=== PATIENT | male | born 1945 | race Caucasian/White ===

== ENCOUNTER 2016-11-12 16:55 | Inpatient (IN) | payer MEDICAID, OTHER ==
[2016-11-12 17:03] VITALS: BMI 17.3
[2016-11-12] MEDS ORDERED: Sodium Chloride 0.9% 1,000 ML IV ONE (17:49)
--- NOTE | 2016-11-12 18:16 | C.PDOC ---
History Of Present Illness 71 y/o male with Hx of Bladder CA presents to ED with complaints of bilateral femur pain radiating to whole body. Pain has been ongoing for awhile but has increased 1 month ago. Patient states having an operation in December at [facility] for Cancer and having bladder, prostate and 1 kidney removed. Patient did not undergo chemotherapy for personal reasons. Patient is evaluated by Dr.Elliot Richmond but does not have a PMD. Patient had a PET scan at [facility] with the following results: Few Scattered non-calcified nodules in lungs without evidence of increase FDG uptake. Mildly enlarged lymph node at lower abdominal to the Left side of aortic bifurcation demonstrates increased FDG uptake suggestive of Metastasis Multiple Osseous Metastasis including Left pedicles of T7 and L2 and multiple lesions in the pelvic bone and both femurs. Time Seen by Provider: 11/12/16 17:31 Chief Complaint (Nursing): Lower Extremity Problem/Injury History Per: Patient History/Exam Limitations: no limitations Onset/Duration Of Symptoms: Days Current Symptoms Are (Timing): Still Present Past Medical History Reviewed: Historical Data, Nursing Documentation, Vital Signs Vital Signs: Last Vital Signs Temp 99 F 11/12/16 17:24 Pulse 87 11/12/16 17:24 Resp 18 11/12/16 17:24 BP 100/58 L 11/12/16 17:24 Pulse Ox 96 11/12/16 19:14 - Medical History PMH: Chronic Kidney Disease - [facility] Procedures DRAINAGE OF RIGHT KIDNEY WITH DRAINAGE DEVICE, PERC APPROACH (10/09/15) EXCISION OF BLADDER, ENDO (10/09/15) INSPECTION OF BLADDER, ENDO (10/09/15) Family History: States: Unknown Family Hx - Social History Hx Tobacco Use: No Hx Alcohol Use: No Hx Substance Use: No - Immunization History Hx Tetanus Toxoid Vaccination: No Hx Influenza Vaccination: No Hx Pneumococcal Vaccination: No Review Of Systems Except As Marked, All Systems Reviewed And Found Negative. Constitutional: Negative for: Fever, Chills Cardiovascular: Negative for: Chest Pain Respiratory: Negative for: Cough, Shortness of Breath Gastrointestinal: Negative for: Nausea, Vomiting, Diarrhea Musculoskeletal: Positive for: Leg Pain Neurological: Positive for: Weakness. Negative for: Headache, Dizziness Physical Exam - Physical Exam Appears: No Acute Distress Skin: Dry, Pale Head: Atraumatic, Normacephalic Eye(s): bilateral: Normal Inspection, PERRL, EOMI Ear(s): Bilateral: Normal Oral Mucosa: Dry Throat: Normal, No Erythema Cardiovascular: Rhythm Regular Respiratory: Normal Breath Sounds, No Rales, No Rhonchi, No Wheezing Gastrointestinal/Abdominal: Soft, No Tenderness, No Guarding, No Rebound Neurological/Psych: Oriented x3, Normal Speech ED Course And Treatment - Laboratory Results Result Diagrams: 11/12/16 18:31 11/12/16 18:31 O2 Sat by Pulse Oximetry: 96 (RA) Pulse Ox Interpretation: Normal Medical Decision Making Medical Decision Making: patient states he can not stand or walk, can not get home..... Disposition Counseled Patient/Family Regarding: Studies Performed, Diagnosis, Need For Followup - Disposition Referrals: at [facility] [Outside] [facility] [Outside] Disposition: HOSPITALIZED Disposition Time: 19:12 Condition: GUARDED Additional Instructions: Siga en clinica. Llame al departamento de consejeria pare referirle un doctor. Prescriptions: Ibuprofen [Motrin] 600 mg PO TID #15 tab traMADol/Acetaminophen [Ultracet 37.5/325 mg] 1 tab PO TID PRN #20 tab PRN Reason: pain Instructions: Bone Metastasis (ED) Forms: Gen Discharge Inst Korean - POA Present On Arrival: None - Clinical Impression Clinical Impression: Bone metastases - PA / [employer] WREST[employer] / Resident Statement MD/DO has reviewed & agrees with the documentation as recorded. MD/DO has examined the patient and agrees with the treatment plan. - Scribe Statement The provider has reviewed the documentation as recorded by the Bernarda Cameron All medical record entries made by the Quetaibconnor were at my direction and personally dictated by me. I have reviewed the chart and agree that the record accurately reflects my personal performance of the history, physical exam, medical decision making, and the department course for this patient. I have also personally directed, reviewed, and agree with the discharge instructions and disposition. Decision To Admit - Pt Status Changed To: Hospital Disposition Of: Observation - . Bed Request Type: Regular Admitting Physician: Barron Reyes Patient Diagnosis: Bone metastases
[2016-11-12 18:34] LABS: BASO # 0.1 K/uL (0.0-0.2); BASO % 0.7 % (0.0-2.0); HEMATOCRIT 24.2 % (35.0-51.0); LYMPH # 1.3 K/uL (1.0-4.3); LYMPH % 6.9 % (20.0-40.0); MEAN CORPUSCULAR HEMOGLOBIN 25.3 pg (27.0-31.0); MEAN CORPUSCULAR HGB CONC 31.6 g/dL (33.0-37.0); MEAN PLATELET VOLUME 8.2 fL (7.2-11.7); MONO # 0.8 K/uL (0.0-0.8); MONO % 4.2 % (0.0-10.0); RED CELL DISTRIBUTION WIDTH 16.5 % (11.5-14.5)
[2016-11-12 18:35] LABS: PLATELET COUNT 284 K/uL (130-400); WHITE BLOOD COUNT 19.4 K/uL (4.8-10.8)
[2016-11-12 18:42] LABS: CHLORIDE 94 mmol/L (98-107)
[2016-11-12 18:43] LABS: POTASSIUM 3.8 mmol/L (3.6-5.2); SODIUM 129 mmol/L (132-148)
[2016-11-12 18:46] LABS: BLOOD UREA NITROGEN 16 mg/dL (9-20); CARBON DIOXIDE 25 mmol/L (22-30); GFR AFRICAN-AMERICAN > 60; GLUCOSE,RANDOM 128 mg/dL (75-110)
[2016-11-12 18:47] LABS: CALCIUM 9.6 mg/dl (8.6-10.4)
[2016-11-12 18:55] LABS: RBC URINE 1 /hpf (0-3); URINE BACTERIA RARE (<OCC); URINE BILIRUBIN NEGATIVE (NEGATIVE); URINE BLOOD NEGATIVE (NEGATIVE); URINE COLOR Yellow (YELLOW); URINE GLUCOSE (UA) NORMAL (Normal); URINE KETONE NEGATIVE (NEGATIVE); URINE LEUKOCYTE ESTERASE 2+ Leu/uL (Negative); URINE PROTEIN NEGATIVE (NEGATIVE); URINE UROBILINOGEN NORMAL mg/dL (0.2-1.0); WBC URINE 33 /hpf (0-5)
[2016-11-12 19:07] LABS: NEUTROPHIL 89 % (50-75); TOTAL CELLS COUNTED 100
--- NOTE | 2016-11-12 20:27 | CP.PCM.HP ---
<Kiran Jensen - Last Filed: 11/13/16 01:59> History of Present Illness - History of Present Illness History of Present Illness: CC: "unable to walk and leg pain" 71 year old khmer-speaking male with PMH of Bladder Ca with metastatic disease , s/p nephrectomy, s/p urostomy, presents to [facility] ED with complaint of inability to walk and bilateral lower extremity pain. Patient states that these has been going on since the Novemeber of last year. He states that it has gotten progressively worse over the last month. Patient reports associated anorexia, dehydration, and decreased oral intake as well for about 1 month. Patient was diagnosed with Bladder Ca last year. He had a urostomy done by Dr. Brielle Richmond. In 02/2016, patient had CT chest/abd/pelvis which suggested metastatic disease. A PET scan was don in 04/2016 which revealed enlarged lymph nodes in lower abdomen left of aortic bifurcation demonstrates increased FG uptake and multiple osseous metastasis including T7, L2, pelvic bones bilaterally, and bilateral femurs. About 2 months ago, patient saw an Oncologist at [facility]. As per family, the oncologist said that they was not need for chemotherapy or radiation due to advanced disease. Patient rates the bilateral leg pain as 10/10 in severity, usually. Currently, it is a 6/10 because he received Tramadol in ED. He describes the pain as constant and tearing located in bilateral thighs radiating down the leg to toe. He also has associated numbness/tingling. Lifting/moving his legs and certain postions make his pain worse while laying supine alleviates it a little. He has taken Tramadol , Tylenol, and Oxycodone at home previously which all seemed to provide some relief. Patient is only able to ambulate with full assistance. He has been using a bedside commode at home. Admits to chills, dizziness/lightheadedness, weakness, NINO, cough, nausea and 1 episode of nonbloody nonbilious vomiting. Denies fevers, vertigo, syncope, cp, palpitations, hematemesis, abd pain, diarrhea, constipation, melena, hematochezia, incontinence. PMD: Denies PMH: Bladder Ca with metastatic disease, s/p nephrectomy, s/p urostomy Meds: MVM, Tramadol, Tylenol, and Oxycodone Allergy: NKDA PSH: left nephrectomy, urostomy Hosp: none recently FH: Denies Social: quit smoking 41 years ago - smoked 1 pack/day for 20 years, denies ETOH/ illicit drug use, ambulate with full assistance, needs help with ADLs, lives with family Present on Admission - Present on Admission Any Indicators Present on Admission: No History of DVT/PE: No History of Uncontrolled Diabetes: No Urinary Catheter: No Decubitus Ulcer Present: No Review of Systems - Constitutional Constitutional: Chills, Fatigue, Weakness. absent: Fever, Headache, Night Sweats - EENT Eyes: absent: Blurred Vision, Change in Vision, Dry Eye Ears: Dizziness. absent: Decreased Hearing, Ear Discharge, Ear Pain Nose/Mouth/Throat: absent: Nasal Congestion, Hoarsness, Sore Throat, Neck Mass - Cardiovascular Cardiovascular: Dyspnea on Exertion. absent: Chest Pain, Chest Pain at Rest, Chest Pain with Activity, Diaphoresis, Irregular Heart Rhythm, Palpitations, Pedal Edema, Syncope - Respiratory Respiratory: Cough, Dyspnea on Exertion. absent: Hemoptysis, Wheezing - Gastrointestinal Gastrointestinal: Nausea, Vomiting. absent: Abdominal Pain, Coffee Ground Emesis, Constipation, Diarrhea, Fecal Incontinence - Genitourinary Genitourinary: Other (urostomy). absent: Hematuria, Pyuria - Musculoskeletal Musculoskeletal: Arthralgias, Back Pain, Myalgias - Integumentary Integumentary: absent: Changing Lesions, New Lesions, Skin Ulcer, Wounds, Jaundice - Neurological Neurological: Dizziness, Numbness, Tingling, Weakness. absent: Headaches, Syncope, Tremor, Vertigo - Psychiatric Psychiatric: absent: Anxiety, Depression, Homicidal Ideation, Suicidal Ideation - Endocrine Endocrine: Fatigue. absent: Palpitations, Polydipsia, Polyphagia, Polyuria - Hematologic/Lymphatic Hematologic: absent: Easy Bleeding, Easy Bruising, Lymphadenopathy Past Patient History - Infectious Disease Hx of Infectious Diseases: None - Past Medical History & Family History Past Medical History?: Yes - Past Social History Smoking Status: Never Smoked - CARDIAC Hx Cardiac Disorders: No - PULMONARY Hx Respiratory Disorders: No - NEUROLOGICAL Hx Neurological Disorder: No - HEENT Hx HEENT Problems: No - RENAL Hx Chronic Kidney Disease: Yes - ENDOCRINE/METABOLIC Hx Endocrine Disorders: No - HEMATOLOGICAL/ONCOLOGICAL Hx Blood Disorders: No - INTEGUMENTARY Hx Dermatological Problems: No - MUSCULOSKELETAL/RHEUMATOLOGICAL Hx Musculoskeletal Disorders: No Hx Falls: No - GASTROINTESTINAL Hx Gastrointestinal Disorders: No - GENITOURINARY/GYNECOLOGICAL Hx Genitourinary Disorders: Yes Hx Hematuria: Yes - PSYCHIATRIC Hx Substance Use: No - SURGICAL HISTORY Hx Surgeries: Yes (CYSTO STENT INSERTION) - ANESTHESIA Hx Anesthesia: Yes Meds Home Medications: Home Medication List Medication Instructions Recorded Confirmed Type Ibuprofen [Motrin] 600 mg PO TID #15 tab 11/12/16 Rx traMADol/Acetaminophen [Ultracet 1 tab PO TID PRN #20 tab 11/12/16 Rx 37.5/325 mg] Allergies/Adverse Reactions: Allergies Allergy/AdvReac Type Severity Reaction Status Date / Time No Known Allergies Allergy Verified 11/12/16 17:02 Physical Exam - Constitutional Appears: No Acute Distress - Head Exam Head Exam: ATRAUMATIC, NORMOCEPHALIC - Eye Exam Eye Exam: EOMI, Normal appearance Pupil Exam: PERRL - ENT Exam ENT Exam: Mucous Membranes Dry - Neck Exam Neck exam: Positive for: Normal Inspection - Respiratory Exam Respiratory Exam: Clear to Auscultation Bilateral, NORMAL BREATHING PATTERN. absent: Accessory Muscle Use, Rales, Rhonchi, Wheezes, Respiratory Distress - Cardiovascular Exam Cardiovascular Exam: REGULAR RHYTHM, +S1, +S2 - GI/Abdominal Exam GI & Abdominal Exam: Normal Bowel Sounds, Soft. absent: Distended, Firm, Guarding, Rebound, Rigid, Tenderness Additional comments: RLQ urostomy site clean, dry, and intact with out edema/erythema - Rectal Exam Rectal Exam: Deferred - Extremities Exam Extremities exam: Positive for: normal capillary refill, tenderness, pedal pulses present. Negative for: pedal edema - Back Exam Back exam: paraspinal tenderness, vertebral tenderness. absent: CVA tenderness (L), CVA tenderness (R) - Neurological Exam Neurological exam: Abnormal Gait, Alert, CN II-XII Intact, Oriented x3 - Psychiatric Exam Psychiatric exam: Normal Affect, Normal Mood - Skin Skin Exam: Dry, Intact, Normal Color, Warm Results - Vital Signs Recent Vital Signs: Last Vital Signs Temp 99 F 11/12/16 17:24 Pulse 87 11/12/16 17:24 Resp 18 11/12/16 17:24 BP 100/58 L 11/12/16 17:24 Pulse Ox 96 11/12/16 19:28 - Labs Result Diagrams: 11/12/16 18:31 11/12/16 18:31 Assessment & Plan - Assessment and Plan (Free Text) Plan: 1. Bilateral Lower extremity and Back Pain Med/surg Regular diet D5 NS 80 cc/hr CT chest/abd/pelvis with PO contrast to evaluate any progression of metastatic disease 04/2016 PET Scan: revealed enlarged lymph nodes in lower abdomen left of aortic bifurcation demonstrates increased FG uptake and multiple osseous metastasis including T7, L2, pelvic bones bilaterally, and bilateral femurs (see full report) 02/2016 CT chest/abd/pelvis: No evidence of thoracic metastasis. Stable pleural plaques bilaterally. Several new mildly enlarged retroperitoneal lymph nodes are noted. 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 Symptomatic Anemia Patient exhibiting dyspnea, NINO, Fatigue, and weakness Hgb 7.7 decreased from previous visits Type and Cross Transfuse 1 unit PRBC Post-Transfusion CBC 4 hours after its finished Heme/Onc Consult, Dr. Billy Del Toro, help appreciated Monitor H/H 3. Bladder CA with Metastatic Disease Likely cause of pain and unsteady gait CT chest/abd/pelvis with PO contrast to evaluate any progression of metastatic disease 04/2016 PET Scan: revealed enlarged lymph nodes in lower abdomen left of aortic bifurcation demonstrates increased FG uptake and multiple osseous metastasis including T7, L2, pelvic bones bilaterally, and bilateral femurs (see full report) 02/2016 CT chest/abd/pelvis: No evidence of thoracic metastasis. Stable pleural plaques bilaterally. Several new mildly enlarged retroperitoneal lymph nodes are noted. 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 Billy Del Toro, help appreciated Palliative Care Consult, Nellie Griffith, help appreciated 4. Prophylactic Measures Protonix 40 mg IVP daily Zofran 4 mg IVP Q6H PRN Tylenol 650 mg PO Q6H PRN Benadryl 25 mg IVP Q6H PRN PT/OT Palliative Care Consult, Nellie Griffith, help appreciated <Bob Lui P - Last Filed: 11/14/16 23:29> Results - Vital Signs Recent Vital Signs: Last Vital Signs Temp 99.0 F 11/14/16 20:00 Pulse 82 11/14/16 20:00 Resp 20 11/14/16 20:00 BP 125/67 11/14/16 20:00 Pulse Ox 97 11/14/16 20:00 - Labs Result Diagrams: 11/14/16 06:18 11/14/16 06:18 Labs: Laboratory Results - last 24 hr 11/14/16 11/14/16 11/14/16 00:43 06:18 06:18 WBC 13.4 H 13.1 H RBC 3.33 L 3.20 L Hgb 8.4 L 8.2 L Hct 26.5 L 25.7 L MCV 79.7 L 80.3 MCH 25.4 L 25.7 L MCHC 31.8 L 32.0 L RDW 15.9 H 16.2 H Plt Count 213 217 MPV 7.6 8.4 Neut % (Auto) 82.5 H 81.9 H Lymph % (Auto) 10.8 L 11.4 L [place] % (Auto) 6.0 6.1 Eos % (Auto) 0.2 0.3 Baso % (Auto) 0.5 0.3 Neut # 11.1 H 10.7 H Lymph # 1.5 1.5 [place] # 0.8 0.8 Eos # 0.0 0.0 Baso # 0.1 0.0 Sodium 133 Potassium 4.6 Chloride 100 Carbon Dioxide 27 Anion Gap 12 BUN 13 Creatinine 0.8 Est GFR ( Amer) > 60 Est GFR (Non-Af Amer) > 60 POC Glucose (mg/dL) Random Glucose 109 Calcium 8.8 Phosphorus 4.0 Magnesium 1.8 Total Bilirubin 0.9 AST 19 ALT 19 L Alkaline Phosphatase 96 Total Protein 6.3 Albumin 3.0 L Globulin 3.3 Albumin/Globulin Ratio 0.9 L 11/14/16 21:18 WBC RBC Hgb Hct MCV MCH MCHC RDW Plt Count MPV Neut % (Auto) Lymph % (Auto) [place] % (Auto) Eos % (Auto) Baso % (Auto) Neut # Lymph # [place] # Eos # Baso # Sodium Potassium Chloride Carbon Dioxide Anion Gap BUN Creatinine Est GFR ( Amer) Est GFR (Non-Af Amer) POC Glucose (mg/dL) 156 H Random Glucose Calcium Phosphorus Magnesium Total Bilirubin AST ALT Alkaline Phosphatase Total Protein Albumin Globulin Albumin/Globulin Ratio Attending/Attestation - Attestation I have personally seen and examined this patient.: Yes I have fully participated in the care of the patient.: Yes I have reviewed all pertinent clinical information: Yes
[2016-11-12] MEDS ORDERED: Oxycodone/Acetaminophen 5/325 mg Tab PO PRN (21:50)
[2016-11-13] MEDS: Dextrose 5%/0.45% NS 1,000 ML IV SCH ×2 (00:01→10:30)
[2016-11-13] MEDS: DiphenhydrAMINE 50 mg/ml Inj IVP SCH ×2 (02:18→08:00)
[2016-11-13] MEDS ORDERED: Iohexol 240 (50 ml) PO ONE (09:30)
[2016-11-13 11:16] LABS: BASO % 0.3 % (0.0-2.0); EOS % 0.1 % (0.0-4.0); HEMATOCRIT 24.1 % (35.0-51.0); LYMPH # 1.1 K/uL (1.0-4.3); LYMPH % 8.2 % (20.0-40.0); MEAN CELL VOLUME 79.9 fL (80.0-94.0); MEAN CORPUSCULAR HEMOGLOBIN 25.1 pg (27.0-31.0); MEAN CORPUSCULAR HGB CONC 31.3 g/dL (33.0-37.0); MEAN PLATELET VOLUME 8.3 fL (7.2-11.7); MONO # 0.9 K/uL (0.0-0.8); MONO % 6.1 % (0.0-10.0); PLATELET COUNT 234 K/uL (130-400); RED CELL DISTRIBUTION WIDTH 15.8 % (11.5-14.5)
[2016-11-13 11:23] LABS: INR 1.4
[2016-11-13 11:29] LABS: CHLORIDE 97 mmol/L (98-107); SODIUM 131 mmol/L (132-148)
[2016-11-13 11:30] LABS: POTASSIUM 3.6 mmol/L (3.6-5.2)
[2016-11-13 11:32] LABS: ALB/GLOB RATIO 0.9 (1.0-2.1); ALKALINE PHOSPHATASE 93 U/L (38-126); ALT/SGPT 17 U/L (21-72); AST/SGOT 18 U/L (17-59); BILIRUBIN,TOTAL 1.1 mg/dL (0.2-1.3); BLOOD UREA NITROGEN 15 mg/dL (9-20); CARBON DIOXIDE 26 mmol/L (22-30); GFR AFRICAN-AMERICAN > 60; GLUCOSE,RANDOM 113 mg/dL (75-110); TOTAL PROTEIN 6.6 g/dL (6.3-8.3)
[2016-11-13 11:33] LABS: CALCIUM 8.3 mg/dl (8.6-10.4)
[2016-11-13 11:53] LABS: NEUTROPHIL 85 % (50-75); TOTAL CELLS COUNTED 100
--- NOTE | 2016-11-13 13:19 | CP.PCM.CON ---
History of Present Illness - History of Present Illness History of Present Illness: 71 year old male with a history of high grade bladder cancer diagnosed in 2015 presenting with progressive debility, found to have radiographic evidence of metastatic disease. The patient reports to oncologic f/u at [facility] and [facility]. He has not had surgery, chemotherapy, or radiation. He notes to progressive decline in his energy level and weight. His appetite is diminished and he reports to bone pain mainly in his hips and legs. Past medical history: Bladder cancer Past surgical history: None Family history: Denies hematologic and oncologic problems Social history: Former tobacco abuse Allergies: NKA Review of systems: All remaining review of systems including HEENT, cardiovascular, respiratory, gastrointestinal, genitourinary, musculoskeletal, dermatologic, neurologic, and psychiatric are negative unless mentioned in the HPI. Past Patient History - Infectious Disease Hx of Infectious Diseases: None - Past Medical History & Family History Past Medical History?: Yes - Past Social History Smoking Status: Never Smoked - CARDIAC Hx Cardiac Disorders: No - PULMONARY Hx Respiratory Disorders: No - NEUROLOGICAL Hx Neurological Disorder: No - HEENT Hx HEENT Problems: No - RENAL Hx Chronic Kidney Disease: Yes - ENDOCRINE/METABOLIC Hx Endocrine Disorders: No - HEMATOLOGICAL/ONCOLOGICAL Hx Blood Disorders: No - INTEGUMENTARY Hx Dermatological Problems: No - MUSCULOSKELETAL/RHEUMATOLOGICAL Hx Musculoskeletal Disorders: No Hx Falls: No - GASTROINTESTINAL Hx Gastrointestinal Disorders: No - GENITOURINARY/GYNECOLOGICAL Hx Genitourinary Disorders: Yes Hx Hematuria: Yes - PSYCHIATRIC Hx Substance Use: No - SURGICAL HISTORY Hx Surgeries: Yes (CYSTO STENT INSERTION) - ANESTHESIA Hx Anesthesia: Yes Meds Home Medications: Home Medication List Medication Instructions Recorded Confirmed Type Ibuprofen [Motrin] 600 mg PO TID #15 tab 11/12/16 Rx traMADol/Acetaminophen [Ultracet 1 tab PO TID PRN #20 tab 11/12/16 Rx 37.5/325 mg] Allergies/Adverse Reactions: Allergies Allergy/AdvReac Type Severity Reaction Status Date / Time No Known Allergies Allergy Verified 11/12/16 17:02 - Medications Medications: Current Medications Acetaminophen (Tylenol 325mg Tab) 650 mg PO Q6 PRN PRN Reason: Fever >100.4 F Last Admin: 11/13/16 13:02 Dose: 650 mg Diphenhydramine HCl (Benadryl) 25 mg IVP Q6H DENNIS Last Admin: 11/13/16 08:00 Dose: Not Given Dextrose/Sodium Chloride (Dextrose 5%/0.45% Ns 1000 Ml) 1,000 mls @ 80 mls/hr IV .[id number] [facility] Last Admin: 11/13/16 10:30 Dose: Not Given Ondansetron HCl (Zofran Inj) 4 mg IVP Q6 PRN PRN Reason: Nausea/Vomiting Oxycodone/Acetaminophen (Percocet 5/325 Mg Tab) 1 tab PO Q4H PRN PRN Reason: Pain, moderate (4-7) Stop: 11/15/16 21:51 Pantoprazole Sodium (Protonix Inj) 40 mg IVP DAILY [facility] Last Admin: 11/13/16 10:06 Dose: 40 mg Tramadol HCl (Ultram) 50 mg PO Q8H PRN PRN Reason: Pain, moderate (4-7) Last Admin: 11/13/16 10:06 Dose: 50 mg Physical Exam - Head Exam Head Exam: ATRAUMATIC - Eye Exam Eye Exam: Normal appearance - ENT Exam ENT Exam: Mucous Membranes Dry - Respiratory Exam Respiratory Exam: NORMAL BREATHING PATTERN - Cardiovascular Exam Cardiovascular Exam: +S1, +S2 - GI/Abdominal Exam GI & Abdominal Exam: Normal Bowel Sounds - Extremities Exam Extremities exam: Positive for: normal inspection - Neurological Exam Neurological exam: Oriented x3 - Psychiatric Exam Psychiatric exam: Normal Affect, Normal Mood - Skin Skin Exam: Warm Results - Vital Signs Recent Vital Signs: Last Vital Signs Temp 99.7 F H 11/13/16 13:02 Pulse 87 11/13/16 12:45 Resp 20 11/13/16 12:45 BP 116/67 11/13/16 12:45 Pulse Ox 96 11/13/16 12:45 - Labs Result Diagrams: 11/14/16 06:18 11/14/16 06:18 Labs: Laboratory Results - last 24 hr 11/12/16 11/12/16 11/13/16 22:30 23:37 11:08 WBC 14.0 H RBC 3.02 L Hgb 7.6 L Hct 24.1 L MCV 79.9 L MCH 25.1 L MCHC 31.3 L RDW 15.8 H Plt Count 234 MPV 8.3 Neut % (Auto) 85.3 H Lymph % (Auto) 8.2 L [place] % (Auto) 6.1 Eos % (Auto) 0.1 Baso % (Auto) 0.3 Neut # 11.9 H Lymph # 1.1 [place] # 0.9 H Eos # 0.0 Baso # 0.0 Neutrophils % (Manual) 85 H Lymphocytes % (Manual) 8 L Monocytes % (Manual) 7 Platelet Estimate Normal Hypochromasia (manual) Slight Poikilocytosis (manual Slight Basophilic Stippling Slight Anisocytosis (manual) Slight PT INR APTT Sodium Potassium Chloride Carbon Dioxide Anion Gap BUN Creatinine Est GFR ( Amer) Est GFR (Non-Af Amer) POC Glucose (mg/dL) 102 Random Glucose Calcium Total Bilirubin AST ALT Alkaline Phosphatase Total Creatine Kinase Total Protein Albumin Globulin Albumin/Globulin Ratio Blood Type O NEGATIVE Antibody Screen Negative 11/13/16 11/13/16 11:08 11:08 WBC RBC Hgb Hct MCV MCH MCHC RDW Plt Count MPV Neut % (Auto) Lymph % (Auto) [place] % (Auto) Eos % (Auto) Baso % (Auto) Neut # Lymph # [place] # Eos # Baso # Neutrophils % (Manual) Lymphocytes % (Manual) Monocytes % (Manual) Platelet Estimate Hypochromasia (manual) Poikilocytosis (manual Basophilic Stippling Anisocytosis (manual) PT 15.8 H INR 1.4 APTT 27 Sodium 131 L Potassium 3.6 Chloride 97 L Carbon Dioxide 26 Anion Gap 11 BUN 15 Creatinine 0.9 Est GFR ( Amer) > 60 Est GFR (Non-Af Amer) > 60 POC Glucose (mg/dL) Random Glucose 113 H Calcium 8.3 L Total Bilirubin 1.1 AST 18 ALT 17 L D Alkaline Phosphatase 93 Total Creatine Kinase 34 L Total Protein 6.6 Albumin 3.2 L Globulin 3.4 Albumin/Globulin Ratio 0.9 L Blood Type Antibody Screen Assessment & Plan (1) Anemia Assessment and Plan: agree with transfusion support will check ferritin, retic count, b12, folate hematuria and chronic disease Status: Acute (2) Bladder cancer Assessment and Plan: imaging suggestive of bone metastasis discussed at length treatment which would include chemotherapy; pt indicated he is not interested in chemotherapy as this would hinder his quality of life pain control with bowel regimen Thank you for this interesting consult. Status: Acute
--- NOTE | 2016-11-13 14:23 | CP.PCM.PN ---
<Ryan Loco - Last Filed: 11/13/16 14:24> Subjective - Date & Time of Evaluation Date of Evaluation: 11/13/16 Time of Evaluation: 14:20 - Subjective Subjective: Medicine progress note. Attending: Dr. Mendez Pt seen and examined at bedside. No acute distress, got 1 unit of blood this morning. Will get 2 more units of PRBCs. Pending paperwork from [facility] regarding cancer workup. No fevers, chills, syncope. Objective - Vital Signs/Intake and Output Vital Signs (last 24 hours): Temp Pulse Resp BP Pulse Ox 98.2 F 87 20 127/62 96 11/13/16 14:19 11/13/16 14:19 11/13/16 14:19 11/13/16 14:19 11/13/16 13:51 Intake and Output: 11/13/16 11/13/16 06:59 18:59 Intake Total 405 0 Output Total 260 Balance 145 0 - Medications Medications: Current Medications Acetaminophen (Tylenol 325mg Tab) 650 mg PO Q6 PRN PRN Reason: Fever >100.4 F Last Admin: 11/13/16 13:02 Dose: 650 mg Dextrose/Sodium Chloride (Dextrose 5%/0.45% Ns 1000 Ml) 1,000 mls @ 80 mls/hr IV .[id number] [facility] Last Admin: 11/13/16 10:30 Dose: Not Given Ondansetron HCl (Zofran Inj) 4 mg IVP Q6 PRN PRN Reason: Nausea/Vomiting Oxycodone/Acetaminophen (Percocet 5/325 Mg Tab) 1 tab PO Q4H PRN PRN Reason: Pain, moderate (4-7) Stop: 11/15/16 21:51 Pantoprazole Sodium (Protonix Inj) 40 mg IVP DAILY [facility] Last Admin: 11/13/16 10:06 Dose: 40 mg Tramadol HCl (Ultram) 50 mg PO Q8H PRN PRN Reason: Pain, moderate (4-7) Last Admin: 11/13/16 10:06 Dose: 50 mg - Labs Labs: 11/13/16 11:08 11/13/16 11:08 PT 15.8 SECONDS (9.7-12.2) H 11/13/16 11:08 INR 1.4 11/13/16 11:08 APTT 27 SECONDS (21-34) 11/13/16 11:08 - Constitutional Appears: Non-toxic, No Acute Distress - Head Exam Head Exam: ATRAUMATIC, NORMAL INSPECTION, NORMOCEPHALIC - Eye Exam Eye Exam: EOMI - ENT Exam ENT Exam: Mucous Membranes Moist - Neck Exam Neck Exam: Full ROM, Normal Inspection - Respiratory Exam Respiratory Exam: NORMAL BREATHING PATTERN. absent: Respiratory Distress - Cardiovascular Exam Cardiovascular Exam: +S1, +S2 - GI/Abdominal Exam GI & Abdominal Exam: Soft, Normal Bowel Sounds. absent: Tenderness - Exam Additional comments: Positive urostomy clean/dry/intact, no erythema/edema - Back Exam Back Exam: paraspinal tenderness, vertebral tenderness - Neurological Exam Neurological Exam: Alert, Awake, Oriented x3 - Psychiatric Exam Psychiatric exam: Flat Affect - Skin Skin Exam: Dry, Intact, Normal Color, Warm Assessment and Plan - Assessment and Plan (Free Text) Assessment: This is a 71 yo male presenting with 1. Bilateral Lower extremity and Back Pain Med/surg Regular diet D5 NS 80 cc/hr CT chest/abd/pelvis with PO contrast to evaluate any progression of metastatic disease>> pending 04/2016 PET Scan: revealed enlarged lymph nodes in lower abdomen left of aortic bifurcation demonstrates increased FG uptake and multiple osseous metastasis including T7, L2, pelvic bones bilaterally, and bilateral femurs (see full report) 02/2016 CT chest/abd/pelvis: No evidence of thoracic metastasis. Stable pleural plaques bilaterally. Several new mildly enlarged retroperitoneal lymph nodes are noted. 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 Symptomatic Anemia Patient exhibiting dyspnea, NINO, Fatigue, and weakness Hgb 7.7 decreased from previous visits Type and Cross Transfuse 1 unit PRBC Post-Transfusion CBC 4 hours after its finished Heme/Onc Consult, Dr. Billy Del Toro, help appreciated Monitor H/H HGB this morning 7.6, will give additional 2 units of packed red blood cells 3. Bladder CA with Metastatic Disease Likely cause of pain and unsteady gait CT chest/abd/pelvis with PO contrast to evaluate any progression of metastatic disease>> pending 04/2016 PET Scan: revealed enlarged lymph nodes in lower abdomen left of aortic bifurcation demonstrates increased FG uptake and multiple osseous metastasis including T7, L2, pelvic bones bilaterally, and bilateral femurs (see full report) 02/2016 CT chest/abd/pelvis: No evidence of thoracic metastasis. Stable pleural plaques bilaterally. Several new mildly enlarged retroperitoneal lymph nodes are noted. 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 Billy Del Toro, help appreciated Palliative Care Consult, Nellie Griffith, help appreciated will obtain records from [facility] regarding prior care/ treatment 4. Swelling lower extremities -will order arterial and venous dopplers -results pending 5. Prophylactic Measures Protonix 40 mg IVP daily Zofran 4 mg IVP Q6H PRN Tylenol 650 mg PO Q6H PRN Benadryl as needed PT/OT Palliative Care Consult, Nellie Griffith, help appreciated discussed with Dr. Mendez. <Melly Mendez V - Last Filed: 11/13/16 21:41> Objective - Vital Signs/Intake and Output Vital Signs (last 24 hours): Temp Pulse Resp BP Pulse Ox 97.8 F 92 H 16 126/68 95 11/13/16 17:07 11/13/16 17:07 11/13/16 17:07 11/13/16 17:07 11/13/16 15:29 Intake and Output: 11/13/16 11/14/16 18:59 06:59 Intake Total 279 Balance 279 - Medications Medications: Current Medications Acetaminophen (Tylenol 325mg Tab) 650 mg PO Q6 PRN PRN Reason: Fever >100.4 F Last Admin: 11/13/16 17:52 Dose: 650 mg Hydromorphone HCl (Dilaudid) 2 mg PO Q4 PRN PRN Reason: Pain, moderate (4-7) Last Admin: 11/13/16 20:37 Dose: 2 mg Dextrose/Sodium Chloride (Dextrose 5%/0.45% Ns 1000 Ml) 1,000 mls @ 80 mls/hr IV .[id number] [facility] Last Admin: 11/13/16 10:30 Dose: Not Given Ceftriaxone Sodium 1 gm/ (Sodium Chloride) 100 mls @ 100 mls/hr IVPB DAILY [facility] Ondansetron HCl (Zofran Inj) 4 mg IVP Q6 PRN PRN Reason: Nausea/Vomiting Last Admin: 11/13/16 20:37 Dose: 4 mg Oxycodone/Acetaminophen (Percocet 5/325 Mg Tab) 1 tab PO Q4H PRN PRN Reason: Pain, moderate (4-7) Stop: 11/15/16 21:51 Pantoprazole Sodium (Protonix Inj) 40 mg IVP DAILY [facility] Last Admin: 11/13/16 10:06 Dose: 40 mg - Labs Labs: PT 15.8 SECONDS (9.7-12.2) H 11/13/16 11:08 INR 1.4 11/13/16 11:08 APTT 27 SECONDS (21-34) 11/13/16 11:08 Attending/Attestation - Attestation I have personally seen and examined this patient.: Yes I have fully participated in the care of the patient.: Yes I have reviewed all pertinent clinical information, including history, physical exam and plan: Yes Notes (Text): Patient seen, examined, and case discussed with day-time resident. Patient is mainly Pashto speaking with at bedside. Patient reports history of metastatic bladder cancer, wherein he reports his heme-onc had told him no more chemotherapy or radiation. Patient had urostomy placed by urology in the past; noted physical exam over right lower quadrant. Patient unable to recall name of his oncologist at [facility]. Will attempt to retrieve old medical records from [facility] to better understand what workup he has received. Patient's main complaints he reports bilateral leg pain which seems electric pain. Patient has been on tylenol, tramadol and oxycodone for pain relief. Patient ordered for venous and arterial dopplers. pedal and femoral pulses are palpable. CPK ordered-->which is low. Patient hgb is low; is type and cross and to undergo blood transfusions, consent obtained by resident. Heme-onc (Dr. Markus Del Toro) on board Urology (Dr. Dulce Richmond) on board Anesthesia consult for pain management help appreciated patient completed CT Chest/Abdomen/Pelvis pending official read Pyuria noted on UA, ordered for urine culture and started on Rocephin for empiric IV abx Assessment/Plan 1. Bilateral Lower extremity and Back Pain Med/surg Regular diet D5 NS 80 cc/hr CT chest/abd/pelvis with PO contrast (11/12/16) to evaluate any progression of metastatic disease-->PENDING read 04/2016 PET Scan: revealed enlarged lymph nodes in lower abdomen left of aortic bifurcation demonstrates increased FG uptake and multiple osseous metastasis including T7, L2, pelvic bones bilaterally, and bilateral femurs (see full report) 02/2016 CT chest/abd/pelvis: No evidence of thoracic metastasis. Stable pleural plaques bilaterally. Several new mildly enlarged retroperitoneal lymph nodes are noted. 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 Symptomatic Anemia Patient exhibiting dyspnea, NINO, Fatigue, and weakness Hgb 7.7 decreased from previous visits Type and Cross Transfuse 1 unit PRBC Post-Transfusion CBC 4 hours after its finished Heme/Onc Consult, Dr. Billy Del Toro, help appreciated Monitor H/H 3. Bladder CA with Metastatic Disease Likely cause of pain and unsteady gait CT chest/abd/pelvis with PO contrast to evaluate any progression of metastatic disease-->pending official read 04/2016 PET Scan: revealed enlarged lymph nodes in lower abdomen left of aortic bifurcation demonstrates increased FG uptake and multiple osseous metastasis including T7, L2, pelvic bones bilaterally, and bilateral femurs (see full report) 02/2016 CT chest/abd/pelvis: No evidence of thoracic metastasis. Stable pleural plaques bilaterally. Several new mildly enlarged retroperitoneal lymph nodes are noted. 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 Billy Del Toro, help appreciated Urology consult: Dr. Richmond on board, help appreciated Palliative Care Consult, Nellie Griffith, help appreciated 4. Pyuria Ordered for urine culture Started on Rocephin IV 5. Prophylactic Measures Protonix 40 mg IVP daily Zofran 4 mg IVP Q6H PRN Tylenol 650 mg PO Q6H PRN PT/OT
--- NOTE | 2016-11-13 18:14 | PCM.URO ---
Urology Progress Note - Objective Lab Results Last 24 Hours: Laboratory Results - last 24 hr 11/12/16 11/12/16 11/13/16 22:30 23:37 11:08 WBC 14.0 H RBC 3.02 L Hgb 7.6 L Hct 24.1 L MCV 79.9 L MCH 25.1 L MCHC 31.3 L RDW 15.8 H Plt Count 234 MPV 8.3 Neut % (Auto) 85.3 H Lymph % (Auto) 8.2 L [place] % (Auto) 6.1 Eos % (Auto) 0.1 Baso % (Auto) 0.3 Neut # 11.9 H Lymph # 1.1 [place] # 0.9 H Eos # 0.0 Baso # 0.0 Neutrophils % (Manual) 85 H Lymphocytes % (Manual) 8 L Monocytes % (Manual) 7 Platelet Estimate Normal Hypochromasia (manual) Slight Poikilocytosis (manual Slight Basophilic Stippling Slight Anisocytosis (manual) Slight PT INR APTT Sodium Potassium Chloride Carbon Dioxide Anion Gap BUN Creatinine Est GFR ( Amer) Est GFR (Non-Af Amer) POC Glucose (mg/dL) 102 Random Glucose Calcium Total Bilirubin AST ALT Alkaline Phosphatase Total Creatine Kinase Total Protein Albumin Globulin Albumin/Globulin Ratio Blood Type O NEGATIVE Antibody Screen Negative 11/13/16 11/13/16 11:08 11:08 WBC RBC Hgb Hct MCV MCH MCHC RDW Plt Count MPV Neut % (Auto) Lymph % (Auto) [place] % (Auto) Eos % (Auto) Baso % (Auto) Neut # Lymph # [place] # Eos # Baso # Neutrophils % (Manual) Lymphocytes % (Manual) Monocytes % (Manual) Platelet Estimate Hypochromasia (manual) Poikilocytosis (manual Basophilic Stippling Anisocytosis (manual) PT 15.8 H INR 1.4 APTT 27 Sodium 131 L Potassium 3.6 Chloride 97 L Carbon Dioxide 26 Anion Gap 11 BUN 15 Creatinine 0.9 Est GFR ( Amer) > 60 Est GFR (Non-Af Amer) > 60 POC Glucose (mg/dL) Random Glucose 113 H Calcium 8.3 L Total Bilirubin 1.1 AST 18 ALT 17 L D Alkaline Phosphatase 93 Total Creatine Kinase 34 L Total Protein 6.6 Albumin 3.2 L Globulin 3.4 Albumin/Globulin Ratio 0.9 L Blood Type Antibody Screen Intake & Output: Intake & Output 11/12/16 11/13/16 11/13/16 18:59 06:59 18:59 Intake Total 405 279 Output Total 260 800 Balance 145 -521 Intake: Oral 120 Blood Product 275 279 Apheresis Rbc Cp2d As3 Lr 275 1st Unit [id number] Apheresis Rbc Cp2d As3 Lr 279 1st Unit [id number] Other 10 Apheresis Rbc Cp2d As3 Lr 10 1st Unit [id number] Output: Drainage 260 800 Right Abdomen 260 800 Vital Signs: Vital Signs - 24 hr 11/12/16 11/12/16 11/12/16 19:28 21:01 22:07 Temperature 99.7 F H 98.2 F Pulse Rate 92 H 90 Pulse Rate [ Left Radial] Respiratory 18 20 Rate Blood Pressure 142/70 118/68 O2 Sat by Pulse 96 98 96 Oximetry 11/12/16 11/13/16 11/13/16 22:25 00:00 01:50 Temperature 98.1 F 100.4 F H Pulse Rate 86 78 Pulse Rate [ 90 Left Radial] Respiratory 18 20 Rate Blood Pressure 122/60 112/66 O2 Sat by Pulse 95 Oximetry 11/13/16 11/13/16 11/13/16 02:17 02:45 03:15 Temperature 100.4 F H 99.1 F 99.8 F H Pulse Rate Pulse Rate [ Left Radial] Respiratory Rate Blood Pressure O2 Sat by Pulse Oximetry 11/13/16 11/13/16 11/13/16 03:17 03:45 04:09 Temperature 98.1 F 98.1 F 98.7 F Pulse Rate 76 Pulse Rate [ Left Radial] Respiratory 20 Rate Blood Pressure 112/62 O2 Sat by Pulse Oximetry 11/13/16 11/13/16 11/13/16 04:22 04:24 04:39 Temperature 98.1 F 98.1 F 98.2 F Pulse Rate 73 73 78 Pulse Rate [ Left Radial] Respiratory 20 20 20 Rate Blood Pressure 112/61 112/61 115/61 O2 Sat by Pulse Oximetry 11/13/16 11/13/16 11/13/16 05:09 06:35 08:17 Temperature 98.5 F 97.9 F 97.9 F Pulse Rate 77 75 79 Pulse Rate [ Left Radial] Respiratory 22 20 20 Rate Blood Pressure 110/65 105/60 112/63 O2 Sat by Pulse 96 Oximetry 11/13/16 11/13/16 11/13/16 12:45 13:02 13:51 Temperature 99.7 F H 99.7 F H 99.3 F Pulse Rate 87 82 Pulse Rate [ Left Radial] Respiratory 20 20 Rate Blood Pressure 116/67 121/68 O2 Sat by Pulse 96 96 Oximetry 11/13/16 11/13/16 11/13/16 14:19 14:34 14:49 Temperature 98.2 F 98.3 F 97.9 F Pulse Rate 87 83 80 Pulse Rate [ Left Radial] Respiratory 20 20 20 Rate Blood Pressure 127/62 116/59 L 124/62 O2 Sat by Pulse Oximetry 11/13/16 11/13/16 11/13/16 15:19 15:29 15:50 Temperature 98.1 F 98.5 F 98.2 F Pulse Rate 75 79 96 H Pulse Rate [ Left Radial] Respiratory 20 20 15 Rate Blood Pressure 115/60 121/58 L 111/52 L O2 Sat by Pulse 95 Oximetry 11/13/16 17:07 Temperature 97.8 F Pulse Rate 92 H Pulse Rate [ Left Radial] Respiratory 16 Rate Blood Pressure 126/68 O2 Sat by Pulse Oximetry
--- NOTE | 2016-11-13 18:37 | PCM.URO ---
Urology Progress Note - Objective Intake & Output: Intake & Output 11/12/16 11/13/16 11/13/16 18:59 06:59 18:59 Intake Total 279 Balance 279 Intake: Blood Product 279 Apheresis Rbc Cp2d As3 Lr 279 1st Unit [id number] Vital Signs: Vital Signs - 24 hr 11/13/16 17:07 Temperature 97.8 F Pulse Rate 92 H Respiratory 16 Rate Blood Pressure 126/68
--- NOTE | 2016-11-13 18:54 | CON ---
DATE: 11/13/2016 The patient is well known to me. He has a history of bladder cancer with a high-staged cancer. He h as been treated previously. From a urology standpoint, I have not heard from the patient in a while, but he has various issues. Yesterday, the son called me and said he has been having progressive pain and not doing as well as he had been doing previously. I recommended that he come to the Emergency Room. Upon further evaluation, you can see the chart for further details, but he is he has had workup so far including lab work and CAT scans, etc. and it shows evidence of metastatic disease to multiple areas. I am seeing the patient for routine followup. PAST MEDICAL AND SURGICAL HISTORY: Listed on the chart. The physical exam is otherwise unremarkable from a standpoint. LABORATORIES: See chart. Hematocrit is noted. CT scan noted. DIAGNOSES: Bladder cancer with multiple metastatic sites and significant hip and lower extremity anjali n, spine pain. The plan from a urology standpoint is as follows: I would consider radiation, even as palliative car e in terms of his pain, at least consider getting a radiation consultation. Also get a pain medicine consultation for management of the pain control. From a urology standpoint, there is not anything further. Oncology input is also noted and discussed with the patient the overall situation and our concerns, b ut at least we can, for now, provide some comfort and therapy. Further plans will follow. I will follow along. So, at this point, there are various options that are available to at least assist the patient in ter ms of pain control and pain management. We will await further input. Regarding the possibility for chemotherapy, this needs to be addressed with the oncologist. The marylou ent apparently had seen the oncologist, but as of now was not accepting of the different options cherie martell. Will have to weigh and consider possibilities if there is anything available. This needs to be evaluated, but for now, apparently the patient was not enthusiastic for further chemotherapy. The patient is here at the bedside, his son is here, his is here. I had a long discussion about the possibilities and then further plans to follow. Rubén Richmond MD cc: [id number] TT: 11/13/2016 18:53:50 Confirmation # [id number] Dictation # [id number] rn
--- NOTE | 2016-11-13 19:32 | CP.PCM.CON ---
History of Present Illness - History of Present Illness History of Present Illness: Patient is a 71 y/o male with advanced metastatic bladder cancer. He states his right hip/thigh pain bothers him the most and has been getting somewhat worse over the last month. He describes the pain as a dull aching pain. Denies sharp electric-like pain or paresthesias. He states that he tried morphine in the past but it made him feel nauseous. He currently takes tramadol but feels it was not as effective as it was in the past for his pain. Review of Systems - Review of Systems All systems: reviewed and no additional remarkable complaints except - Constitutional Constitutional: Weight Loss - Musculoskeletal Musculoskeletal: Arthralgias, Back Pain, Muscle Cramps Past Patient History - Infectious Disease Hx of Infectious Diseases: None - Past Medical History & Family History Past Medical History?: Yes - Past Social History Smoking Status: Never Smoked - CARDIAC Hx Cardiac Disorders: No - PULMONARY Hx Respiratory Disorders: No - NEUROLOGICAL Hx Neurological Disorder: No - HEENT Hx HEENT Problems: No - RENAL Hx Chronic Kidney Disease: Yes - ENDOCRINE/METABOLIC Hx Endocrine Disorders: No - HEMATOLOGICAL/ONCOLOGICAL Hx Blood Disorders: No - INTEGUMENTARY Hx Dermatological Problems: No - MUSCULOSKELETAL/RHEUMATOLOGICAL Hx Musculoskeletal Disorders: No Hx Falls: No - GASTROINTESTINAL Hx Gastrointestinal Disorders: No - GENITOURINARY/GYNECOLOGICAL Hx Genitourinary Disorders: Yes Hx Hematuria: Yes - PSYCHIATRIC Hx Substance Use: No - SURGICAL HISTORY Hx Surgeries: Yes (CYSTO STENT INSERTION) - ANESTHESIA Hx Anesthesia: Yes Meds Home Medications: Home Medication List Medication Instructions Recorded Confirmed Type Ibuprofen [Motrin] 600 mg PO TID #15 tab 11/12/16 Rx traMADol/Acetaminophen [Ultracet 1 tab PO TID PRN #20 tab 11/12/16 Rx 37.5/325 mg] Allergies/Adverse Reactions: Allergies Allergy/AdvReac Type Severity Reaction Status Date / Time No Known Allergies Allergy Verified 11/12/16 17:02 - Medications Medications: Current Medications Acetaminophen (Tylenol 325mg Tab) 650 mg PO Q6 PRN PRN Reason: Fever >100.4 F Last Admin: 11/13/16 17:52 Dose: 650 mg Dextrose/Sodium Chloride (Dextrose 5%/0.45% Ns 1000 Ml) 1,000 mls @ 80 mls/hr IV .[id number] [facility] Last Admin: 11/13/16 10:30 Dose: Not Given Ondansetron HCl (Zofran Inj) 4 mg IVP Q6 PRN PRN Reason: Nausea/Vomiting Oxycodone/Acetaminophen (Percocet 5/325 Mg Tab) 1 tab PO Q4H PRN PRN Reason: Pain, moderate (4-7) Stop: 11/15/16 21:51 Pantoprazole Sodium (Protonix Inj) 40 mg IVP DAILY [facility] Last Admin: 11/13/16 10:06 Dose: 40 mg Tramadol HCl (Ultram) 50 mg PO Q8H PRN PRN Reason: Pain, moderate (4-7) Last Admin: 11/13/16 17:52 Dose: 50 mg Results - Vital Signs Recent Vital Signs: Last Vital Signs Temp 97.8 F 11/13/16 17:07 Pulse 92 H 11/13/16 17:07 Resp 16 11/13/16 17:07 BP 126/68 11/13/16 17:07 Pulse Ox 95 11/13/16 15:29 - Labs Result Diagrams: 11/13/16 11:08 11/13/16 11:08 Assessment & Plan - Assessment and Plan (Free Text) Assessment: 71 y/o M with metastatic bladder cancer pain mostly in right hip thigh/spine. States he would like to get pain better controlled. -could try 2.0mg oral hydromorphone, every 4 hours PRN -if patient does not tolerate oral hydromorphone, would recommend discontinuing hydromorphone and starting oral oxycodone 2.5mg every 4 hours PRN as patient states he would prefer the lowest dose possible to avoid feeling lethargic -would continue tylenol and ibuprofen -bowel regimen as needed
[2016-11-14 00:46] LABS: BASO # 0.1 K/uL (0.0-0.2); BASO % 0.5 % (0.0-2.0); EOS % 0.2 % (0.0-4.0); HEMATOCRIT 26.5 % (35.0-51.0); LYMPH # 1.5 K/uL (1.0-4.3); LYMPH % 10.8 % (20.0-40.0); MEAN CELL VOLUME 79.7 fL (80.0-94.0); MEAN CORPUSCULAR HEMOGLOBIN 25.4 pg (27.0-31.0); MEAN CORPUSCULAR HGB CONC 31.8 g/dL (33.0-37.0); MEAN PLATELET VOLUME 7.6 fL (7.2-11.7); MONO # 0.8 K/uL (0.0-0.8); RED CELL DISTRIBUTION WIDTH 15.9 % (11.5-14.5); WHITE BLOOD COUNT 13.4 K/uL (4.8-10.8)
[2016-11-14 06:30] LABS: BASO % 0.3 % (0.0-2.0); EOS % 0.3 % (0.0-4.0); HEMATOCRIT 25.7 % (35.0-51.0); LYMPH # 1.5 K/uL (1.0-4.3); LYMPH % 11.4 % (20.0-40.0); MEAN CELL VOLUME 80.3 fL (80.0-94.0); MEAN CORPUSCULAR HEMOGLOBIN 25.7 pg (27.0-31.0); MEAN PLATELET VOLUME 8.4 fL (7.2-11.7); MONO # 0.8 K/uL (0.0-0.8); MONO % 6.1 % (0.0-10.0); RED CELL DISTRIBUTION WIDTH 16.2 % (11.5-14.5); WHITE BLOOD COUNT 13.1 K/uL (4.8-10.8)
[2016-11-14 07:08] LABS: CHLORIDE 100 mmol/L (98-107); SODIUM 133 mmol/L (132-148)
[2016-11-14 07:09] LABS: POTASSIUM 4.6 mmol/L (3.6-5.2)
[2016-11-14 07:11] LABS: ALB/GLOB RATIO 0.9 (1.0-2.1); ALKALINE PHOSPHATASE 96 U/L (38-126); AST/SGOT 19 U/L (17-59); BILIRUBIN,TOTAL 0.9 mg/dL (0.2-1.3); BLOOD UREA NITROGEN 13 mg/dL (9-20); CARBON DIOXIDE 27 mmol/L (22-30); GFR AFRICAN-AMERICAN > 60; GLUCOSE,RANDOM 109 mg/dL (75-110); TOTAL PROTEIN 6.3 g/dL (6.3-8.3)
[2016-11-14 07:12] LABS: ALT/SGPT 19 U/L (21-72); CALCIUM 8.8 mg/dl (8.6-10.4); MAGNESIUM 1.8 mg/dL (1.6-2.3)
[2016-11-14] MEDS: Saccharomyces Boulardi 250 mg Cap PO SCH ×2 (09:27→18:06)
--- NOTE | 2016-11-14 10:47 | CP.PCM.PN ---
Subjective - Date & Time of Evaluation Date of Evaluation: 11/21/16 Time of Evaluation: 09:00 - Subjective Subjective: Medicine Note- Hospitalist Service Patient was seen and examined at bedside. Son and at bedside.Patient reports that he still has pain in both his lower extremities, radiating from his back. He requests to continue getting Tramadol. He says he had the dilaudid last night and it helped somewhat with sleep, but he says the tramadol has been the most effective to control his pain. No events overnight, per nursing. Objective - Vital Signs/Intake and Output Vital Signs (last 24 hours): Temp Pulse Resp BP Pulse Ox 97.7 F 77 20 121/66 96 11/14/16 10:14 11/14/16 10:14 11/14/16 10:14 11/14/16 10:14 11/14/16 10:14 - Medications Medications: Current Medications Acetaminophen (Tylenol 325mg Tab) 650 mg PO Q6 PRN PRN Reason: Fever >100.4 F Last Admin: 11/13/16 17:52 Dose: 650 mg Hydromorphone HCl (Dilaudid) 2 mg PO Q4 PRN PRN Reason: Pain, moderate (4-7) Last Admin: 11/13/16 20:37 Dose: 2 mg Dextrose/Sodium Chloride (Dextrose 5%/0.45% Ns 1000 Ml) 1,000 mls @ 80 mls/hr IV .[id number] [facility] Last Admin: 11/13/16 10:30 Dose: Not Given Ceftriaxone Sodium 1 gm/ (Sodium Chloride) 100 mls @ 100 mls/hr IVPB DAILY [facility] Last Admin: 11/14/16 09:27 Dose: 100 mls/hr Ondansetron HCl (Zofran Inj) 4 mg IVP Q6 PRN PRN Reason: Nausea/Vomiting Last Admin: 11/13/16 20:37 Dose: 4 mg Oxycodone/Acetaminophen (Percocet 5/325 Mg Tab) 1 tab PO Q4H PRN PRN Reason: Pain, moderate (4-7) Stop: 11/15/16 21:51 Pantoprazole Sodium (Protonix Inj) 40 mg IVP DAILY [facility] Last Admin: 11/14/16 09:27 Dose: 40 mg Saccharomyces Boulardii (Florastor) 250 mg PO BID [facility] Last Admin: 11/14/16 09:27 Dose: 250 mg Tramadol HCl (Ultram) 50 mg PO Q8H PRN PRN Reason: Pain, moderate (4-7) Last Admin: 11/14/16 08:54 Dose: 50 mg - Labs Labs: 11/14/16 06:18 11/14/16 06:18 PT 15.8 SECONDS (9.7-12.2) H 11/13/16 11:08 INR 1.4 11/13/16 11:08 APTT 27 SECONDS (21-34) 11/13/16 11:08 - Constitutional Appears: Non-toxic, No Acute Distress - Head Exam Head Exam: ATRAUMATIC, NORMAL INSPECTION, NORMOCEPHALIC - Eye Exam Pupil Exam: NORMAL ACCOMODATION, PERRL - ENT Exam ENT Exam: Mucous Membranes Moist - Neck Exam Neck Exam: Normal Inspection - Respiratory Exam Respiratory Exam: Clear to Ausculation Bilateral, NORMAL BREATHING PATTERN. absent: Prolonged Expiratory Phase, Rales, Rhonchi, Wheezes - Cardiovascular Exam Cardiovascular Exam: REGULAR RHYTHM, +S1, +S2 - GI/Abdominal Exam GI & Abdominal Exam: Soft, Normal Bowel Sounds. absent: Tenderness, Diminished Bowel Sounds, Hypoactive Bowel Sounds - Extremities Exam Extremities Exam: Normal Capillary Refill - Neurological Exam Neurological Exam: Alert, Awake, Oriented x3 - Psychiatric Exam Psychiatric exam: Normal Affect, Normal Mood - Skin Skin Exam: Dry, Intact, Normal Color, Warm Assessment and Plan - Assessment and Plan (Free Text) Assessment: Assessment/Plan 1. Bilateral Lower extremity and Back Pain Med/surg Regular diet D5 NS 80 cc/hr CT chest/abd/pelvis with PO contrast (11/12/16) to evaluate any progression of metastatic disease-->PENDING read 04/2016 PET Scan: revealed enlarged lymph nodes in lower abdomen left of aortic bifurcation demonstrates increased FG uptake and multiple osseous metastasis including T7, L2, pelvic bones bilaterally, and bilateral femurs (see full report) 02/2016 CT chest/abd/pelvis: No evidence of thoracic metastasis. Stable pleural plaques bilaterally. Several new mildly enlarged retroperitoneal lymph nodes are noted. 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 Symptomatic Anemia Patient exhibiting dyspnea, NINO, Fatigue, and weakness Hgb 8.2 decreased from previous visits Type and Cross Has received 2U PRBC so far, scheduled for one additional unit today Heme/Onc Consult, Dr. Billy Del Toro, help appreciated Monitor H/H 3. Bladder CA with Metastatic Disease Likely cause of pain and unsteady gait CT chest/abd/pelvis with PO contrast to evaluate any progression of metastatic disease-->pending official read 04/2016 PET Scan: revealed enlarged lymph nodes in lower abdomen left of aortic bifurcation demonstrates increased FG uptake and multiple osseous metastasis including T7, L2, pelvic bones bilaterally, and bilateral femurs (see full report) 02/2016 CT chest/abd/pelvis: No evidence of thoracic metastasis. Stable pleural plaques bilaterally. Several new mildly enlarged retroperitoneal lymph nodes are noted. 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 Billy Del Toro, help appreciated Urology consult: Dr. Richmond on board, help appreciated Palliative Care Consult, Nellie Griffith, help appreciated 4. Pyuria Ordered for urine culture Started on Rocephin IV (11/14/16) 5. Prophylactic Measures Protonix 40 mg IVP daily Zofran 4 mg IVP Q6H PRN Tylenol 650 mg PO Q6H PRN PT/OT
[2016-11-14] MEDS: Dextrose 5%/0.45% NS 1,000 ML IV SCH (12:00)
[2016-11-14] MEDS: oxyCODONE 20 mg ER Tab (oxyCONTIN) PO SCH ×2 (15:07→21:31)
--- NOTE | 2016-11-14 17:57 | CT ---
PROCEDURE: CT Chest, Abdomen and Pelvis without oral or intravenous nous contrast HISTORY: evaluate metstatic dx COMPARISON: Comparison made with CT scan chest abdomen pelvis 03/06/2016 TECHNIQUE: Radiation dose: Total exam DLP = 573.03 mGy-cm. This CT exam was performed using one or more of the following dose reduction techniques: Automated exposure control, adjustment of the mA and/or kV according to patient size, and/or use of iterative reconstruction technique. FINDINGS: CT CHEST WITHOUT CONTRAST: LUNGS: No focal consolidation. Somewhat nodular pleural thickening both lung posterior lower lung crowell of uncertain etiology. . Re- demonstrated are 2 nodular densities in the right lung base the largest measuring approximately 15 mm. The 2nd measures approximately 9 mm and contains a small calcification. MEDIASTINUM: There are some multiple relatively small mediastinal lymph nodes a few of which are on calcified. Evaluation for hilar adenopathy limited due to the lack of circulating intravenous contrast material. LYMPH NODES: As above. PLEURA: Lobulated pleural thickening changes both lung bases left greater than right as detailed above BONES: Sclerotic lesion within the T7 segment is present. This could represent a sclerotic metastatic deposit and is new since prior CT scan Unremarkable. OTHER FINDINGS: None. CT ABDOMEN AND PELVIS: LIVER: Mild hepatomegaly with liver measuring nearly 20 cm in CC dimension. There is also a vague rounded area of low attenuation right lobe liver inferior of bold margin right lobe liver which could represent a metastatic lesion best seen on axial image number [id number]. There is also small calcific density adjacent to the posterior superior margin of the lesion. GALLBLADDER AND BILE DUCTS: Gallbladder is physiologically distended. No evidence of intraluminal gallbladder calculi. PANCREAS: Unremarkable. No gross lesion or ductal dilatation. Visualized portions of the unenhanced pancreas appears grossly unremarkable so far as can be seen. SPLEEN: Spleen is enlarged measuring nearly 14 cm in CC dimension. ADRENALS: Hyperplasia of the adrenal glands. KIDNEYS AND URETERS: Small sub cm low-attenuation focus lower pole right kidney may represent a small cyst. Tiny nonobstructing calculi midpole right kidney. Left kidney is not visualized VASCULATURE: No evidence of abdominal aortic aneurysm. BOWEL: Evaluation of the bowel is limited due to incomplete opacification. Apparent a partial colectomy for diverting urostomy APPENDIX: Not visualized. PERITONEUM: Evaluation of the bowel is limited due to incomplete opacification. LYMPH NODES: Unremarkable. No enlarged lymph nodes. BLADDER: Urinary bladder is absent with apparent ileal conduit and ileal conduit and right lower quadrant ileostomy. REPRODUCTIVE: Prostate gland appears to be absent likely secondary to prior prostatectomy however clinical correlation recommended. BONES: Sclerotic lesions are seen throughout the pelvis and sacrum as well as both hips consistent with metastatic disease. There is a sclerotic lesion within the L2 segment and possibly within sella the posterior elements of L 5 on. OTHER FINDINGS: None. IMPRESSION: Stable appearing lobular pleural densities of both lung bases. Small nodules right lower lung base unchanged. Suspect new metastatic lesion within the right lobe liver. Hepatomegaly. Small cyst caudate lobe felt to be present. Splenomegaly. Sclerotic metastatic deposits within the pelvis sacrum of both hips, L2 segment and T7 segments. Status post cystectomy and prostatectomy with a right-sided ileal conduit and ileostomy right lower quadrant of the abdomen. See above discussion for additional findings and details.
--- NOTE | 2016-11-14 19:31 | RAD ---
HISTORY: s/p 3 units prbc r/o fluid overload COMPARISON: No prior. FINDINGS: LUNGS: Very mild increased the central pulmonary vasculature. Possibility of mild pulmonary edema/ fluid overload not excluded. PLEURA: No significant pleural effusion identified, no pneumothorax apparent. CARDIOVASCULAR: Normal. OSSEOUS STRUCTURES: No significant abnormalities. VISUALIZED UPPER ABDOMEN: Normal. OTHER FINDINGS: None. IMPRESSION: Very mild increased the central pulmonary vasculature. Possibility of mild pulmonary edema/ fluid overload not excluded.
--- NOTE | 2016-11-14 21:56 | CP.PCM.PN ---
Subjective - Date & Time of Evaluation Date of Evaluation: 11/14/16 Time of Evaluation: 20:00 - Subjective Subjective: Feeling better Objective - Vital Signs/Intake and Output Vital Signs (last 24 hours): Temp Pulse Resp BP Pulse Ox 99.0 F 82 20 125/67 97 11/14/16 20:00 11/14/16 20:00 11/14/16 20:00 11/14/16 20:00 11/14/16 20:00 Intake and Output: 11/14/16 11/15/16 18:59 06:59 Intake Total 568 Output Total 700 Balance -132 - Medications Medications: Current Medications Acetaminophen (Tylenol 325mg Tab) 650 mg PO Q6 PRN PRN Reason: Fever >100.4 F Last Admin: 11/13/16 17:52 Dose: 650 mg Dextrose/Sodium Chloride (Dextrose 5%/0.45% Ns 1000 Ml) 1,000 mls @ 80 mls/hr IV .[id number] [facility] Last Admin: 11/14/16 12:00 Dose: Not Given Ceftriaxone Sodium 1 gm/ (Sodium Chloride) 100 mls @ 100 mls/hr IVPB DAILY [facility] Last Admin: 11/14/16 09:27 Dose: 100 mls/hr Ondansetron HCl (Zofran Inj) 4 mg IVP Q6 PRN PRN Reason: Nausea/Vomiting Last Admin: 11/13/16 20:37 Dose: 4 mg Oxycodone HCl (Oxycontin Extended Release Tab) 20 mg PO Q12 [facility] Last Admin: 11/14/16 21:31 Dose: 20 mg Oxycodone/Acetaminophen (Percocet 5/325 Mg Tab) 1 tab PO Q4H PRN PRN Reason: Pain, moderate (4-7) Stop: 11/15/16 21:51 Pantoprazole Sodium (Protonix Inj) 40 mg IVP DAILY [facility] Last Admin: 11/14/16 09:27 Dose: 40 mg Saccharomyces Boulardii (Florastor) 250 mg PO BID [facility] Last Admin: 11/14/16 18:06 Dose: 250 mg Tramadol HCl (Ultram) 50 mg PO Q8H PRN PRN Reason: Pain, moderate (4-7) Last Admin: 11/14/16 18:06 Dose: 50 mg - Labs Labs: 11/14/16 06:18 11/14/16 06:18 PT 15.8 SECONDS (9.7-12.2) H 11/13/16 11:08 INR 1.4 11/13/16 11:08 APTT 27 SECONDS (21-34) 11/13/16 11:08 - Head Exam Head Exam: ATRAUMATIC - Eye Exam Eye Exam: Normal appearance - ENT Exam ENT Exam: Mucous Membranes Dry - Respiratory Exam Respiratory Exam: NORMAL BREATHING PATTERN - Cardiovascular Exam Cardiovascular Exam: +S1, +S2 - GI/Abdominal Exam GI & Abdominal Exam: Normal Bowel Sounds - Extremities Exam Extremities Exam: Normal Inspection Assessment and Plan (1) Anemia Assessment & Plan: s/p transfusion support f/u anemia w/u Status: Acute (2) Bladder cancer Assessment & Plan: stage IV radiographic bone metastasis deferred chemotherapy supportive care Status: Acute
[2016-11-15 08:10] LABS: BASO % 0.3 % (0.0-2.0); EOS # 0.1 K/uL (0.0-0.7); EOS % 0.4 % (0.0-4.0); HEMATOCRIT 27.1 % (35.0-51.0); LYMPH # 1.4 K/uL (1.0-4.3); LYMPH % 10.6 % (20.0-40.0); MEAN CELL VOLUME 80.4 fL (80.0-94.0); MEAN CORPUSCULAR HEMOGLOBIN 26.1 pg (27.0-31.0); MEAN CORPUSCULAR HGB CONC 32.5 g/dL (33.0-37.0); MEAN PLATELET VOLUME 8.3 fL (7.2-11.7); MONO % 7.6 % (0.0-10.0); RED CELL DISTRIBUTION WIDTH 16.5 % (11.5-14.5); WHITE BLOOD COUNT 13.3 K/uL (4.8-10.8)
[2016-11-15 08:25] LABS: CHLORIDE 94 mmol/L (98-107); POTASSIUM 3.6 mmol/L (3.6-5.2); SODIUM 129 mmol/L (132-148)
[2016-11-15 08:28] LABS: ALB/GLOB RATIO 0.9 (1.0-2.1); ALKALINE PHOSPHATASE 82 U/L (38-126); ALT/SGPT 21 U/L (21-72); AST/SGOT 18 U/L (17-59); BILIRUBIN,TOTAL 1.1 mg/dL (0.2-1.3); BLOOD UREA NITROGEN 12 mg/dL (9-20); CALCIUM 8.4 mg/dl (8.6-10.4); CARBON DIOXIDE 27 mmol/L (22-30); GFR AFRICAN-AMERICAN > 60; GLUCOSE,RANDOM 100 mg/dL (75-110); TOTAL PROTEIN 6.4 g/dL (6.3-8.3)
[2016-11-15 09:25] LABS: FOLATE 12.6 ng/mL
--- NOTE | 2016-11-15 09:49 | PCM.URO ---
Urology Progress Note - General General: No Complaints, Tolerating Diet - Subjective Abdominal Pain: Yes (mild) Flank Pain: No Hematuria: No Good Stream: No (urine output is via urostomy) Fever & Chills: No - Objective Lab Studies: Reviewed Lab Results Last 24 Hours: Laboratory Results - last 24 hr 11/14/16 11/15/16 11/15/16 21:18 07:19 07:56 WBC 13.3 H RBC 3.37 L Hgb 8.8 L Hct 27.1 L MCV 80.4 MCH 26.1 L MCHC 32.5 L RDW 16.5 H Plt Count 201 MPV 8.3 Neut % (Auto) 81.1 H Lymph % (Auto) 10.6 L Donley % (Auto) 7.6 Eos % (Auto) 0.4 Baso % (Auto) 0.3 Neut # 10.8 H Lymph # 1.4 Donley # 1.0 H Eos # 0.1 Baso # 0.0 Retic Count Sodium Potassium Chloride Carbon Dioxide Anion Gap BUN Creatinine Est GFR ( Amer) Est GFR (Non-Af Amer) POC Glucose (mg/dL) 156 H 103 Random Glucose Calcium Ferritin Total Bilirubin AST ALT Alkaline Phosphatase Total Protein Albumin Globulin Albumin/Globulin Ratio Vitamin B12 Folate 11/15/16 11/15/16 07:56 07:56 WBC RBC Hgb Hct MCV MCH MCHC RDW Plt Count MPV Neut % (Auto) Lymph % (Auto) Donley % (Auto) Eos % (Auto) Baso % (Auto) Neut # Lymph # Donley # Eos # Baso # Retic Count 1.8 H Sodium 129 L Potassium 3.6 Chloride 94 L Carbon Dioxide 27 Anion Gap 12 BUN 12 Creatinine 0.8 Est GFR ( Amer) > 60 Est GFR (Non-Af Amer) > 60 POC Glucose (mg/dL) Random Glucose 100 Calcium 8.4 L Ferritin 262.0 Total Bilirubin 1.1 AST 18 ALT 21 Alkaline Phosphatase 82 Total Protein 6.4 Albumin 3.0 L Globulin 3.4 Albumin/Globulin Ratio 0.9 L Vitamin B12 807 Folate 12.6 Intake & Output: Intake & Output 11/14/16 11/15/16 11/15/16 18:59 06:59 18:59 Intake Total 568 880 Output Total 700 1120 Balance -132 -240 Intake: Intake, IV Amount 640 Right Antecubital 640 Oral 240 Blood Product 568 Apheresis Rbc Cp2d As3 Lr 284 2nd Unit [id number] Output: Drainage 700 1120 Right Abdomen 700 1120 Other: # Bowel Movements 0 0 Vital Signs: Vital Signs - 24 hr 11/14/16 11/14/16 11/14/16 10:14 11:40 11:55 Temperature 97.7 F 97.6 F 98 F Pulse Rate 77 72 72 Respiratory 20 20 20 Rate Blood Pressure 121/66 119/64 122/68 O2 Sat by Pulse 96 Oximetry 11/14/16 11/14/16 11/14/16 12:10 12:25 12:40 Temperature 98.1 F 97.6 F 97.9 F Pulse Rate 76 81 78 Respiratory 20 20 20 Rate Blood Pressure 126/69 125/61 124/65 O2 Sat by Pulse Oximetry 11/14/16 11/14/16 11/14/16 14:30 16:15 20:00 Temperature 98 F 98.3 F 99.0 F Pulse Rate 75 73 82 Respiratory 20 20 20 Rate Blood Pressure 117/69 124/61 125/67 O2 Sat by Pulse 95 97 Oximetry 11/15/16 11/15/16 00:15 08:42 Temperature 99.4 F 98.9 F Pulse Rate 85 82 Respiratory 20 20 Rate Blood Pressure 142/70 117/64 O2 Sat by Pulse 96 97 Oximetry - Physical Exam Abdominal Exam: Soft, Non-Tender, Non-Distended Back: No CVA Tenderness Urine Color: Yellow - Plan Additional Information: IMP: METASTATIC BLADDER CA,. S/P CYSTECTOMY AND URINARY DIVERSION - Date & Time of Note Date: 11/15/16 Time: 09:48
[2016-11-15] MEDS: oxyCODONE 20 mg ER Tab (oxyCONTIN) PO SCH (11:06)
[2016-11-15] MEDS: Saccharomyces Boulardi 250 mg Cap PO SCH ×2 (11:06→17:30)
[2016-11-15] MEDS: Dextrose 5%/0.45% NS 1,000 ML IV SCH (11:12)
--- NOTE | 2016-11-15 14:01 | CP.PCM.PN ---
<Alirio Mckenzie - Last Filed: 11/15/16 16:16> Subjective - Date & Time of Evaluation Date of Evaluation: 11/15/16 Time of Evaluation: 16:00 - Subjective Subjective: Medicine Note- Hospitalist Service Patient was seen and examined at bedside. Son and at bedside, son is translating. He is still feeling very weak in both his lower extremities. He says he noticed his appetite has gone down. He says the oxycodone does well to control the pain, but when he wakes up from sleeping, he feels like his mind is foggy. No events overnight per nursing. Objective - Vital Signs/Intake and Output Vital Signs (last 24 hours): Temp Pulse Resp BP Pulse Ox 98.9 F 82 20 117/64 97 11/15/16 08:42 11/15/16 08:42 11/15/16 08:42 11/15/16 08:42 11/15/16 08:42 Intake and Output: 11/15/16 11/15/16 06:59 18:59 Intake Total 880 Output Total 1120 Balance -240 - Medications Medications: Current Medications Acetaminophen (Tylenol 325mg Tab) 650 mg PO Q6 PRN PRN Reason: Fever >100.4 F Last Admin: 11/13/16 17:52 Dose: 650 mg Dextrose/Sodium Chloride (Dextrose 5%/0.45% Ns 1000 Ml) 1,000 mls @ 80 mls/hr IV .[id number] [facility] Last Admin: 11/15/16 11:12 Dose: 80 mls/hr Ceftriaxone Sodium 1 gm/ (Sodium Chloride) 100 mls @ 100 mls/hr IVPB DAILY [facility] Last Admin: 11/15/16 11:08 Dose: 100 mls/hr Ondansetron HCl (Zofran Inj) 4 mg IVP Q6 PRN PRN Reason: Nausea/Vomiting Last Admin: 11/13/16 20:37 Dose: 4 mg Oxycodone HCl (Oxycontin Extended Release Tab) 20 mg PO Q12 [facility] Last Admin: 11/15/16 11:06 Dose: 20 mg Oxycodone/Acetaminophen (Percocet 5/325 Mg Tab) 1 tab PO Q4H PRN PRN Reason: Pain, moderate (4-7) Stop: 11/15/16 21:51 Pantoprazole Sodium (Protonix Inj) 40 mg IVP DAILY [facility] Last Admin: 11/15/16 11:06 Dose: 40 mg Saccharomyces Boulardii (Florastor) 250 mg PO BID [facility] Last Admin: 11/15/16 11:06 Dose: 250 mg Tramadol HCl (Ultram) 50 mg PO Q8H PRN PRN Reason: Pain, moderate (4-7) Last Admin: 11/14/16 18:06 Dose: 50 mg - Labs Labs: 11/15/16 07:56 11/15/16 07:56 PT 15.8 SECONDS (9.7-12.2) H 11/13/16 11:08 INR 1.4 11/13/16 11:08 APTT 27 SECONDS (21-34) 11/13/16 11:08 - Constitutional Appears: Non-toxic, No Acute Distress - Head Exam Head Exam: ATRAUMATIC, NORMAL INSPECTION, NORMOCEPHALIC - Eye Exam Pupil Exam: NORMAL ACCOMODATION - ENT Exam ENT Exam: Mucous Membranes Moist - Respiratory Exam Respiratory Exam: Clear to Ausculation Bilateral, NORMAL BREATHING PATTERN. absent: Prolonged Expiratory Phase, Rales, Rhonchi, Wheezes - Cardiovascular Exam Cardiovascular Exam: REGULAR RHYTHM, +S1, +S2 - GI/Abdominal Exam GI & Abdominal Exam: Soft, Normal Bowel Sounds. absent: Tenderness, Diminished Bowel Sounds, Hernia, Hyperactive Bowel Sounds, Hypoactive Bowel Sounds - Extremities Exam Extremities Exam: Normal Capillary Refill Additional comments: lower extremity weakness, bilateral - Neurological Exam Neurological Exam: Alert, Awake, Oriented x3 - Psychiatric Exam Psychiatric exam: Normal Affect, Normal Mood - Skin Skin Exam: Dry, Intact, Normal Color, Warm Assessment and Plan - Assessment and Plan (Free Text) Assessment: 1. Bilateral Lower extremity and Back Pain Med/surg Regular diet D5 NS 80 cc/hr CT chest/abd/pelvis with PO contrast (11/12/16) to evaluate any progression of metastatic disease-->PENDING read 04/2016 PET Scan: revealed enlarged lymph nodes in lower abdomen left of aortic bifurcation demonstrates increased FG uptake and multiple osseous metastasis including T7, L2, pelvic bones bilaterally, and bilateral femurs (see full report) 02/2016 CT chest/abd/pelvis: No evidence of thoracic metastasis. Stable pleural plaques bilaterally. Several new mildly enlarged retroperitoneal lymph nodes are noted. 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 Symptomatic Anemia Patient exhibiting dyspnea, NINO, Fatigue, and weakness Hgb 8.8 decreased from previous visits Type and Cross Has received 3U PRBC total on this visit Heme/Onc Consult, Dr. Billy Del Toro, help appreciated Monitor H/H 3. Bladder CA with Metastatic Disease Likely cause of pain and unsteady gait CT chest/abd/pelvis with PO contrast to evaluate any progression of metastatic disease-->pending official read 04/2016 PET Scan: revealed enlarged lymph nodes in lower abdomen left of aortic bifurcation demonstrates increased FG uptake and multiple osseous metastasis including T7, L2, pelvic bones bilaterally, and bilateral femurs (see full report) 02/2016 CT chest/abd/pelvis: No evidence of thoracic metastasis. Stable pleural plaques bilaterally. Several new mildly enlarged retroperitoneal lymph nodes are noted. 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 Billy Del Toro, help appreciated Urology consult: Dr. Richmond on board, help appreciated Palliative Care Consult, Nellie Griffith, help appreciated 4. Pyuria Ordered for urine culture- prelim- gram negative rods Started on Rocephin IV (11/14/16) Florastor 250mg PO BID 5. Prophylactic Measures Protonix 40 mg IVP daily Zofran 4 mg IVP Q6H PRN Tylenol 650 mg PO Q6H PRN PT/OT Regional Director referral <Melly Mendez V - Last Filed: 11/15/16 16:51> Objective - Vital Signs/Intake and Output Vital Signs (last 24 hours): Temp Pulse Resp BP Pulse Ox 98.9 F 82 20 117/64 97 11/15/16 08:42 11/15/16 08:42 11/15/16 08:42 11/15/16 08:42 11/15/16 08:42 Intake and Output: 11/15/16 11/15/16 06:59 18:59 Intake Total 880 640 Output Total 1120 700 Balance -240 -60 - Medications Medications: Current Medications Acetaminophen (Tylenol 325mg Tab) 650 mg PO Q6 PRN PRN Reason: Fever >100.4 F Last Admin: 11/13/16 17:52 Dose: 650 mg Dextrose/Sodium Chloride (Dextrose 5%/0.45% Ns 1000 Ml) 1,000 mls @ 80 mls/hr IV .[id number] [facility] Last Admin: 11/15/16 11:12 Dose: 80 mls/hr Ceftriaxone Sodium 1 gm/ (Sodium Chloride) 100 mls @ 100 mls/hr IVPB DAILY [facility] Last Admin: 11/15/16 11:08 Dose: 100 mls/hr Ondansetron HCl (Zofran Inj) 4 mg IVP Q6 PRN PRN Reason: Nausea/Vomiting Last Admin: 11/13/16 20:37 Dose: 4 mg Pantoprazole Sodium (Protonix Inj) 40 mg IVP DAILY [facility] Last Admin: 11/15/16 11:06 Dose: 40 mg Saccharomyces Boulardii (Florastor) 250 mg PO BID [facility] Last Admin: 11/15/16 11:06 Dose: 250 mg Tramadol HCl (Ultram) 50 mg PO Q8H PRN PRN Reason: Pain, moderate (4-7) Last Admin: 11/14/16 18:06 Dose: 50 mg - Labs Labs: 11/15/16 07:56 11/15/16 07:56 PT 15.8 SECONDS (9.7-12.2) H 11/13/16 11:08 INR 1.4 11/13/16 11:08 APTT 27 SECONDS (21-34) 11/13/16 11:08 Attending/Attestation - Attestation I have personally seen and examined this patient.: Yes I have fully participated in the care of the patient.: Yes I have reviewed all pertinent clinical information, including history, physical exam and plan: Yes Notes (Text): Patient seen, examined, and case discussed with day-time resident. Patient is mainly Indonesian speaking with at bedside. Patient reports history of metastatic bladder cancer, wherein he reports his heme-onc had told him no more chemotherapy or radiation and per patient's son, there were told there is no more that can be done for the cancer. Patient had urostomy placed by urology in the past; noted physical exam over right lower quadrant. Patient's main complaints he reports bilateral leg pain which seems electric pain. Patient has been on tylenol, tramadol and oxycodone for pain relief. Patient reports he was pain controlled with the oxycodone, however, he felt "loopy and out of it" and prefers tramadol. Patient ordered for venous and arterial dopplers. pedal and femoral pulses are palpable pending. Patient is on IV Abx for pyuria, pending final urine culture. Patient is pending PT eval. Assessment/Plan 1. Bilateral Lower extremity and Back Pain Med/surg Regular diet D5 NS 80 cc/hr CT chest/abd/pelvis with PO contrast (11/12/16) to evaluate any progression of metastatic disease-->PENDING read 04/2016 PET Scan: revealed enlarged lymph nodes in lower abdomen left of aortic bifurcation demonstrates increased FG uptake and multiple osseous metastasis including T7, L2, pelvic bones bilaterally, and bilateral femurs (see full report) 02/2016 CT chest/abd/pelvis: No evidence of thoracic metastasis. Stable pleural plaques bilaterally. Several new mildly enlarged retroperitoneal lymph nodes are noted. 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 Symptomatic Anemia Patient exhibiting dyspnea, NINO, Fatigue, and weakness Hgb 7.7 decreased from previous visits Type and Cross Transfuse 1 unit PRBC Post-Transfusion CBC 4 hours after its finished Heme/Onc Consult, Dr. Billy Del Toro, help appreciated Monitor H/H 3. Bladder CA with Metastatic Disease CT chest/abd/pelvis with PO contrast (11/12/16): stable appearing lobular pleural densities of both lung bases. Small nodules right lower lung base unchanged. Suspect new metastatic lesion within the right lobe liber. Hepatomegaly. Small cyst lobe felt to be present. Splenomegaly. Sclerotic metastatic deposits within the pelvis sacrum of both hips, L2 segment and T7 segments. status post cystectomy and prostatectomy with right sided ileal conduit and ileostomy right lower quadrant of the abdomen 04/2016 PET Scan: revealed enlarged lymph nodes in lower abdomen left of aortic bifurcation demonstrates increased FG uptake and multiple osseous metastasis including T7, L2, pelvic bones bilaterally, and bilateral femurs (see full report) 02/2016 CT chest/abd/pelvis: No evidence of thoracic metastasis. Stable pleural plaques bilaterally. Several new mildly enlarged retroperitoneal lymph nodes are noted. 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 Billy Del Toro, help appreciated Urology consult: Dr. Richmond on board, help appreciated 4. Pyuria Urine culture (11/13/16): gram negative ramón; pending speciation Rocephin 1 gram IV q daily (active since 11/14/16) Florastor 250mg PO bid 5. Unsteady Gait PT eval 6. Prophylactic Measures Protonix 40 mg IVP daily Zofran 4 mg IVP Q6H PRN Tylenol 650 mg PO Q6H PRN PT/OT Regional Director referral Megace for appetite stimulant
[2016-11-15] MEDS: Sodium Chloride 0.9% 1,000 ML IV SCH (21:11)
[2016-11-16] MEDS: Sodium Chloride 0.9% 1,000 ML IV SCH ×4 (03:00→22:26)
[2016-11-16 07:10] LABS: BASO # 0.1 K/uL (0.0-0.2); BASO % 0.4 % (0.0-2.0); EOS # 0.1 K/uL (0.0-0.7); EOS % 0.6 % (0.0-4.0); HEMATOCRIT 27.9 % (35.0-51.0); LYMPH # 1.5 K/uL (1.0-4.3); MEAN CELL VOLUME 80.3 fL (80.0-94.0); MEAN CORPUSCULAR HEMOGLOBIN 25.9 pg (27.0-31.0); MEAN CORPUSCULAR HGB CONC 32.2 g/dL (33.0-37.0); MEAN PLATELET VOLUME 7.9 fL (7.2-11.7); MONO # 1.1 K/uL (0.0-0.8); MONO % 7.3 % (0.0-10.0); RED CELL DISTRIBUTION WIDTH 16.3 % (11.5-14.5); WHITE BLOOD COUNT 15.2 K/uL (4.8-10.8)
[2016-11-16 07:50] LABS: CHLORIDE 97 mmol/L (98-107)
[2016-11-16 07:51] LABS: POTASSIUM 4.1 mmol/L (3.6-5.2); SODIUM 130 mmol/L (132-148)
[2016-11-16 07:53] LABS: ALB/GLOB RATIO 0.9 (1.0-2.1); AST/SGOT 24 U/L (17-59); BILIRUBIN,TOTAL 0.9 mg/dL (0.2-1.3); CARBON DIOXIDE 25 mmol/L (22-30); GFR AFRICAN-AMERICAN > 60; TOTAL PROTEIN 6.5 g/dL (6.3-8.3)
[2016-11-16 07:54] LABS: ALKALINE PHOSPHATASE 105 U/L (38-126); ALT/SGPT 23 U/L (21-72); BLOOD UREA NITROGEN 15 mg/dL (9-20); CALCIUM 8.5 mg/dl (8.6-10.4); GLUCOSE,RANDOM 112 mg/dL (75-110)
[2016-11-16 07:55] LABS: MAGNESIUM 1.7 mg/dL (1.6-2.3)
--- NOTE | 2016-11-16 09:10 | VASCLAB ---
PROCEDURE: Lower Extremity Venous Duplex Exam. HISTORY: swelling in the legs r/o DVT PRIORS: None. TECHNIQUE: Bilateral common femoral, femoral, popliteal and posterior tibial, peroneal and great saphenous veins were evaluated. Flow was assessed with color Doppler, compressibility, assessment of phasic flow and augmentation response. Report prepared by YUDELKA Rowland, RVT FINDINGS: RIGHT: 1. Common Femoral Vein: 1.1. Compressibility - Fully compressible: Thrombus - None : Flow - Phasic: Augmentation -Normal: Reflux - None. 2. Femoral Vein: 2.1. Compressibility - Fully compressible: Thrombus - None : Flow - Phasic: Augmentation -Normal: Reflux - None. 3. Popliteal Vein: 3.1. Compressibility - Fully compressible: Thrombus - None : Flow - Phasic: Augmentation -Normal: Reflux - None. 4. Posterior Tibial Vein: 4.1. Compressibility - Fully compressible: Thrombus - None: Flow - Phasic: Augmentation -Normal: Reflux - None. 5. Peroneal Vein: 5.1. Compressibility - Fully compressible: Thrombus - None: Flow - Phasic: Augmentation -Normal: Reflux - None. 6. Great Saphenous Vein: 6.1. Compressibility - Fully compressible: Thrombus - None: Flow - Phasic: Augmentation - Normal: Reflux - None. LEFT: 1. Common Femoral Vein: 1.1. Compressibility - Fully compressible: Thrombus - None: Flow - Phasic: Augmentation -Normal: Reflux - None. 2. Femoral Vein: 2.1. Compressibility - Fully compressible: Thrombus - None: Flow - Phasic: Augmentation -Normal: Reflux - None. 3. Popliteal Vein: 3.1. Compressibility - Fully compressible: Thrombus - None : Flow - Phasic: Augmentation -Normal: Reflux - None. 4. Posterior Tibial Vein: 4.1. Compressibility - Fully compressible: Thrombus - None: Flow - Phasic: Augmentation -Normal: Reflux - None. 5. Peroneal Vein: 5.1. Compressibility - Fully compressible: Thrombus - None: Flow - Phasic: Augmentation -Normal: Reflux - None. 6. Great Saphenous Vein: 6.1. Compressibility - Fully compressible: Thrombus - None: Flow - Phasic: Augmentation - Normal: Reflux - None. OTHER FINDINGS: Right: None significant. Left: None significant. IMPRESSION: Right: No evidence of deep or superficial vein thrombosis of the right lower extremity. Normal valve function noted of the right side. Left: No evidence of deep or superficial vein thrombosis of the left lower extremity. Normal valve function noted of the left side. Biphasic arterial flow noted at the distal posterior tibial and anterior tibial arteries in the both lower extremities.
--- NOTE | 2016-11-16 09:13 | CP.PCM.PN ---
<Eri Payton - Last Filed: 11/16/16 14:34> Subjective - Date & Time of Evaluation Date of Evaluation: 11/16/16 Time of Evaluation: 09:02 - Subjective Subjective: Patient seen and examined at bedside. Patient reports he continues to feel weakness, particularly to his lower extremities. He also continues to have back pain, which is not well controlled with current pain medications. Patient states he has poor appetite but is tolerating boost dietary supplement. He states he has not had a bowel movement in 3-4 days but denies abdominal pain, nausea, and vomiting. Patient also denies chest pain and shortness of breath. Objective - Vital Signs/Intake and Output Vital Signs (last 24 hours): Temp Pulse Resp BP Pulse Ox 98.2 F 77 20 111/61 96 11/16/16 07:44 11/16/16 07:44 11/16/16 07:44 11/16/16 07:44 11/16/16 07:44 Intake and Output: 11/16/16 11/16/16 06:59 18:59 Intake Total 1250 Output Total 650 Balance 600 - Medications Medications: Current Medications Acetaminophen (Tylenol 325mg Tab) 650 mg PO Q6 PRN PRN Reason: Fever >100.4 F Last Admin: 11/16/16 03:45 Dose: 650 mg Ceftriaxone Sodium 1 gm/ (Sodium Chloride) 100 mls @ 100 mls/hr IVPB DAILY [facility] Last Admin: 11/15/16 11:08 Dose: 100 mls/hr Sodium Chloride (Sodium Chloride 0.9%) 1,000 mls @ 100 mls/hr IV .Q10H [facility] Last Admin: 11/16/16 07:09 Dose: 100 mls/hr Ondansetron HCl (Zofran Inj) 4 mg IVP Q6 PRN PRN Reason: Nausea/Vomiting Last Admin: 11/13/16 20:37 Dose: 4 mg Pantoprazole Sodium (Protonix Ec Tab) 40 mg PO DAILY [facility] Saccharomyces Boulardii (Florastor) 250 mg PO BID [facility] Last Admin: 11/15/16 17:30 Dose: 250 mg Tramadol HCl (Ultram) 50 mg PO Q8H PRN PRN Reason: Pain, moderate (4-7) Last Admin: 11/16/16 08:45 Dose: 50 mg - Labs Labs: 11/16/16 07:01 11/16/16 07:01 PT 15.8 SECONDS (9.7-12.2) H 11/13/16 11:08 INR 1.4 11/13/16 11:08 APTT 27 SECONDS (21-34) 11/13/16 11:08 - Constitutional Appears: Non-toxic, No Acute Distress - Head Exam Head Exam: ATRAUMATIC, NORMAL INSPECTION, NORMOCEPHALIC - Eye Exam Eye Exam: EOMI, Normal appearance, PERRL - ENT Exam ENT Exam: Mucous Membranes Moist - Neck Exam Neck Exam: Full ROM, Normal Inspection - Respiratory Exam Respiratory Exam: Clear to Ausculation Bilateral, NORMAL BREATHING PATTERN. absent: Rales, Rhonchi, Wheezes - Cardiovascular Exam Cardiovascular Exam: +S1, +S2. absent: Bradycardia, Tachycardia, Murmur - GI/Abdominal Exam GI & Abdominal Exam: Soft, Normal Bowel Sounds. absent: Distended, Tenderness - Extremities Exam Extremities Exam: Normal Inspection. absent: Pedal Edema, Tenderness - Back Exam Back Exam: paraspinal tenderness - Neurological Exam Neurological Exam: Alert, Awake, CN II-XII Intact, Oriented x3 Neuro motor strength exam: Left Upper Extremity: 5, Right Upper Extremity: 5, Left Lower Extremity: 4, Right Lower Extremity: 4 - Psychiatric Exam Psychiatric exam: Normal Affect, Normal Mood - Skin Skin Exam: Intact, Normal Color Assessment and Plan - Assessment and Plan (Free Text) Assessment: 1. Bilateral Lower extremity and back Pain likely secondary to metastatic disease Chest/Abd/Pelvis CT with po contrast (11/12/16): Stable appearing lobular pleural densities of both lung bases. Small nodules right lower lung base unchanged. Suspect new metastatic lesion within the right lobe liver. Hepatomegaly. Small cyst caudate lobe felt to be present. Splenomegaly. Sclerotic metastatic deposits within the pelvis sacrum of both hips, L2 segment and T7 segments. Status post cystectomy and prostatectomy with a right-sided ileal conduit and ileostomy right lower quadrant of the abdomen. Increase from Tramadol 50 mg po q8h PRN to Tramadol 100 mg po q6h PRN for moderate pain. If patient's pain continues to not be controlled will add Gabapentin 300 mg po TID. Start Morphine 1 mg IVPB q6h PRN Regular diet Normal Saline IV @100cc Zofran 4mg IVP Q6h PRN Venous dopplers negative Pain management on consult-->help appreciated Palliative Care Consult, Nellie Griffith, help appreciated. Per palliative care consult, patient wishes to remain full code. PT/OT 04/2016 PET Scan: revealed enlarged lymph nodes in lower abdomen left of aortic bifurcation demonstrates increased FG uptake and multiple osseous metastasis including T7, L2, pelvic bones bilaterally, and bilateral femurs (see full report) 02/2016 CT chest/abd/pelvis: No evidence of thoracic metastasis. Stable pleural plaques bilaterally. Several new mildly enlarged retroperitoneal lymph nodes are noted. Status post left nephrectomy and cystectomy with formation of ileal conduit (see full report) 2. Symptomatic Anemia Hemoglobin improved to 9.0 from 8.8 s/p transfusion Type and Cross Transfused pRBCs Heme/Onc consulted, Dr. Billy Del Toro, help appreciated Continue to monitor H/H 3. Bladder CA with Metastatic Disease s/p cystectomy and urinary diversion Heme/Onc Consult, Dr. Billy Del Toro, help appreciated Urology consult: Dr. Richmond on board, help appreciated. Palliative Care Consult, Nellie Griffith, help appreciated 4. Pyuria Febrile 102F this AM Urine Culture: Klebsiella pneumoniae Will follow-up repeat urine culture. Discontinue Rocephin IV (started on 11/14/16) as patient is still spiking fever. Start Primaxin 500 mg IVPB q6h (11/16/16). Florastor 250mg PO BID 5. Prophylactic Measures Protonix 40 mg IVP daily Zofran 4 mg IVP Q6H PRN Tylenol 650 mg PO Q6H PRN Boost TID for dietary supplement PT/OT Triple Valve Tester referral <Melly Mendez V - Last Filed: 11/16/16 21:39> Objective - Vital Signs/Intake and Output Vital Signs (last 24 hours): Temp Pulse Resp BP Pulse Ox 97 F L 78 20 128/62 97 11/16/16 16:17 11/16/16 16:17 11/16/16 16:17 11/16/16 16:17 11/16/16 16:17 Intake and Output: 11/16/16 11/17/16 18:59 06:59 Intake Total 800 Output Total 700 Balance 100 - Medications Medications: Current Medications Acetaminophen (Tylenol 325mg Tab) 650 mg PO Q6 PRN PRN Reason: Fever >100.4 F Last Admin: 11/16/16 03:45 Dose: 650 mg Docusate Sodium (Colace) 100 mg PO TID [facility] Last Admin: 11/16/16 17:41 Dose: 100 mg Sodium Chloride (Sodium Chloride 0.9%) 1,000 mls @ 100 mls/hr IV .Q10H [facility] Last Admin: 11/16/16 12:36 Dose: Not Given Imipenem/Cilastatin Sodium 500 (mg/ Sodium Chloride) 100 mls @ 100 mls/hr IVPB Q6H [facility] Last Admin: 11/16/16 17:40 Dose: 100 mls/hr Morphine Sulfate (Morphine) 1 mg IVP Q6 PRN PRN Reason: Pain, moderate (4-7) Ondansetron HCl (Zofran Inj) 4 mg IVP Q6 PRN PRN Reason: Nausea/Vomiting Last Admin: 11/13/16 20:37 Dose: 4 mg Pantoprazole Sodium (Protonix Ec Tab) 40 mg PO DAILY [facility] Last Admin: 11/16/16 09:20 Dose: 40 mg Saccharomyces Boulardii (Florastor) 250 mg PO BID [facility] Last Admin: 11/16/16 17:41 Dose: 250 mg Tramadol HCl (Ultram) 100 mg PO Q6H PRN PRN Reason: Pain, moderate (4-7) Last Admin: 11/16/16 17:46 Dose: 100 mg - Labs Labs: 11/16/16 07:01 11/16/16 07:01 PT 15.8 SECONDS (9.7-12.2) H 11/13/16 11:08 INR 1.4 11/13/16 11:08 APTT 27 SECONDS (21-34) 11/13/16 11:08 Attending/Attestation - Attestation I have personally seen and examined this patient.: Yes I have fully participated in the care of the patient.: Yes I have reviewed all pertinent clinical information, including history, physical exam and plan: Yes Notes (Text): Patient seen, examined, and case discussed with day-time resident. Patient is mainly [place] speaking with and son, who speaks Arabic and [place] at bedside. Patient reports history of metastatic bladder cancer, wherein he reports his heme-onc that his prior heme-onc there is no chemotherapy treatment that could help him. Patient's main complaints he reports bilateral leg pain which seems electric pain. Patient has been on tylenol, tramadol and oxycodone for pain relief. Patient reports he was pain controlled with the oxycodone, however, he felt "loopy and out of it" and prefers tramadol. Increased the Tramadol 100mg PO TID to try to modify his pain and IV morphine PRN if needs. Patient's pain limits patient in attempts of trying to work with physical therapy. Appreciate palliative consult recommendation including patient is full code and will need to review his CT scan to better understand his bladder cancer disease ; will f/u heme-onc to see if any other therapy available; was under impression patient understood given his prior talks with his prior heme-onc but does not appear clear following palliative care conversation Patient febrile overnight at 102, blood and urine cultures collected, and switch his IV Abx from Rocephin to Primaxin to cover for his Klebsiella urinary traction infection. PT evaluation recommended for subacute rehab. Assessment/Plan 1. Bilateral Lower extremity and Back Pain NS 100cc/hr CT chest/abd/pelvis with PO contrast (11/12/16): stable appearing lobular pelural densities of both lung bases. Small nodules right lower base unchanged. Suspect new metastatic lesion within the right lobe liver. Hepatomegaly. Splenomegaly. Sclerotic metastatic deposits withiin the pelvis sacrum of hips, L2 and T7 segments, s/p post cystectomy and prostatectomy with right sided ileal conduit and ileostomy right lower quadrant 04/2016 PET Scan: revealed enlarged lymph nodes in lower abdomen left of aortic bifurcation demonstrates increased FG uptake and multiple osseous metastasis including T7, L2, pelvic bones bilaterally, and bilateral femurs (see full report) 02/2016 CT chest/abd/pelvis: No evidence of thoracic metastasis. Stable pleural plaques bilaterally. Several new mildly enlarged retroperitoneal lymph nodes are noted. Status post left nephrectomy and cystectomy with formation of ileal conduit (see full report) Percocet 5/325 mg 1 tab Q4H PRN Pain management on consult-->help appreciated Palliative Care Consult, Nellie Griffith, help appreciated PT/OT Venous and Arterial dopplers: negative for acute findings D/C oxydocone/hydromorphine reason: patient cannot tolerating side effects ( lethargic, lightheaded) prefers Tramadol 2. Symptomatic Anemia Patient exhibiting dyspnea, NINO, Fatigue, and weakness Hgb 9.0 Heme/Onc Consult, Dr. Billy Del Toro, help appreciated Monitor H/H 3. Bladder CA with Metastatic Disease CT chest/abd/pelvis with PO contrast (11/12/16): stable appearing lobular pleural densities of both lung bases. Small nodules right lower lung base unchanged. Suspect new metastatic lesion within the right lobe liber. Hepatomegaly. Small cyst lobe felt to be present. Splenomegaly. Sclerotic metastatic deposits within the pelvis sacrum of both hips, L2 segment and T7 segments. status post cystectomy and prostatectomy with right sided ileal conduit and ileostomy right lower quadrant of the abdomen 04/2016 PET Scan: revealed enlarged lymph nodes in lower abdomen left of aortic bifurcation demonstrates increased FG uptake and multiple osseous metastasis including T7, L2, pelvic bones bilaterally, and bilateral femurs (see full report) 02/2016 CT chest/abd/pelvis: No evidence of thoracic metastasis. Stable pleural plaques bilaterally. Several new mildly enlarged retroperitoneal lymph nodes are noted. 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 Billy Del Toro, help appreciated Urology consult: Dr. Richmond on board, help appreciated 4. Urinary Tract Infection Urine culture (11/13/16): Klebsiella Pneumoniae Primaxin 500mg IV Q 8 hours (active since 11/16/16) Florastor 250mg PO bid Repeat Blood cultures and urine culture taken given Tmax: 102F 5. Unsteady Gait PT eval: subacute rehab 6. Prophylactic Measures Protonix 40 mg IVP daily Zofran 4 mg IVP Q6H PRN Tylenol 650 mg PO Q6H PRN Tramadol 100mg PO TID PT: subacute rehab Triple Valve Tester referral Tony for appetite stimulant
[2016-11-16] MEDS: Saccharomyces Boulardi 250 mg Cap PO SCH ×2 (09:20→17:41)
[2016-11-16] MEDS: Pantoprazole 40 mg EC Tab PO SCH (09:20)
--- NOTE | 2016-11-16 16:27 | CP.PCM.CON ---
History of Present Illness - History of Present Illness History of Present Illness: Palliative consult Requested by Kiran CHAHAL Reason: Goals of care Patient is a 71 yo male admitted on 11/12/2016 with complaints of B/L femur pain which radiates to whole body. Patient had recently done PET scan as an outpatient suggesting possible mets to bones and abdomen. Patient was diagnosed with bladder CA and about 1 months ago had surgery at [facility] for surgical extraction of Bladder, one kidney and prostate. Upon this admission patient was diagnosed with UTI and started on Rocephin IV. pain is initially managed with Oxycodone when patient reported the "fogginess" upon awaking and it was changed to Ultram. PMH: bladder Cancer, no on chemo, S/P surgical removal of bladder, kidney and prostate Soc. Hx: , lives at home Fam hx : Unknown Review of Systems - Constitutional Constitutional: Weight Loss - EENT Eyes: absent: As Per HPI, Blind Spots, Blurred Vision, Change in Vision, Decreased Night Vision, Diplopia, Discharge, Dry Eye, Exophthalmos, Floaters, Irritation, Itchy Eyes, Loss of Peripheral Vision, Pain, Photophobia, Requires Corrective Lenses, Sees Flashes, Spots in Vision, Tunnel Vision, Other Visual Disturbances, Loss of Vision, Other Ears: absent: As Per HPI, Decreased Hearing, Ear Discharge, Ear Pain, Tinnitus, Abnormal Hearing, Disequilibrium, Dizziness, Other Nose/Mouth/Throat: absent: As Per HPI, Epistaxis, Nasal Congestion, Nasal Discharge, Nasal Obstruction, Nasal Trauma, Nose Pain, Post Nasal Drip, Sinus Pain, Sinus Pressure, Bleeding Gums, Change in Voice, Dental Pain, Dry Mouth, Dysphagia, Halitosis, Hoarsness, Lip Swelling, Mouth Lesions, Mouth Pain, Odynophagia, Sore Throat, Throat Swelling, Tongue Swelling, Facial Pain, Neck Pain, Neck Mass, Other - Cardiovascular Cardiovascular: absent: As Per HPI, Acrocyanosis, Chest Pain, Chest Pain at Rest , Chest Pain with Activity, Claudication, Diaphoresis, Dyspnea, Dyspnea on Exertion, Edema, Irregular Heart Rhythm, Pain Radiating to Arm/Neck/Jaw, Leg Edema, Leg Ulcers, Lightheadedness, Orthopnea, Palpitations, Paroxysmal Nocturnal Dyspnea, Pedal Edema, Radiating Pain, Rapid Heart Rate, Slow Heart Rate, Syncope, Other - Respiratory Respiratory: absent: As Per HPI, Cough, Dyspnea, Hemoptysis, Dyspnea on Exertion , Wheezing, Snoring, Stridor, Pain on Inspiration, Chest Congestion, Excessive Mucous Production, Change in Mucous Color, Pain with Coughing, Other - Gastrointestinal Additional comments: Poor appetite, unwanted weight loss - Genitourinary Genitourinary: Hx /Renal Surgery - Musculoskeletal Musculoskeletal: Muscle Weakness - Integumentary Integumentary: absent: As Per HPI, Acne, Alopecia, Bleeding Lesions, Change in Hair, Change in Nails, Change in Pigmentation, Changing Lesions, Dry Skin, Erythema, Furuncle, Hirsutism, Lesions, New Lesions, Non-Healing Lesions, Photosensitivity, Pruritus, Rash, Skin Pain, Skin Ulcer, Sores, Striae, Swelling , Unusual Bruising, Wounds, Jaundice, Other - Neurological Neurological: absent: As Per HPI, Abnormal Gait, Abnormal Hearing, Abnormal Movements, Abnormal Speech, Behavioral Changes, Burning Sensations, Confusion, Convulsions, Disequilibrium, Dizziness, Numbness, Focal Weakness, Frequent Falls , Headaches, Lack of Coordination, Loss of Vision, Memory Loss, Paresthesias, Radicular Pain, Restless Legs, Sensory Deficit, Syncope, Tingling, Tremor, Vertigo, Weakness, Other Visual Disturbances, Other - Psychiatric Psychiatric: absent: As Per HPI, Abnormal Sleep Pattern, Anhedonia, Anxiety, Auditory Hallucinations, Behavioral Changes, Change in Appetite, Change in Libido, Confusion, Depression, Difficulty Concentrating, Hallucinations, Homicidal Ideation, Hopelessness, Irritability, Memory Loss, Mood Swings, Panic Attacks, Paranoia, Suicidal Ideation, Visual Hallucinations, Tactile Hallucinations, Other - Endocrine Endocrine: absent: As Per HPI, Change in Body Appearance, Change in Libido, Cold Intolorance, Deepening of Voice, Excessive Sweating, Fatigue, Flushing, Heat Intolorance, Increase in Ring/Shoe/Hat Size, Palpitations, Polydipsia, Polyphagia, Polyuria, Other - Hematologic/Lymphatic Hematologic: absent: As Per HPI, Easy Bleeding, Easy Bruising, Lymphadenopathy, Other Past Patient History - Infectious Disease Hx of Infectious Diseases: None - Past Medical History & Family History Past Medical History?: Yes - Past Social History Smoking Status: Never Smoked - CARDIAC Hx Cardiac Disorders: No - PULMONARY Hx Respiratory Disorders: No - NEUROLOGICAL Hx Neurological Disorder: No - HEENT Hx HEENT Problems: No - RENAL Hx Chronic Kidney Disease: Yes - ENDOCRINE/METABOLIC Hx Endocrine Disorders: No - HEMATOLOGICAL/ONCOLOGICAL Hx Blood Disorders: No - INTEGUMENTARY Hx Dermatological Problems: No - MUSCULOSKELETAL/RHEUMATOLOGICAL Hx Arthritis: Yes (BACK AND B/L HIP PAIN R>L) - GASTROINTESTINAL Hx Gastrointestinal Disorders: No - GENITOURINARY/GYNECOLOGICAL Hx Genitourinary Disorders: Yes Hx Hematuria: Yes - PSYCHIATRIC Hx Substance Use: No - SURGICAL HISTORY Hx Surgeries: Yes (CYSTO STENT INSERTION) - ANESTHESIA Hx Anesthesia: Yes Meds Home Medications: Home Medication List Medication Instructions Recorded Confirmed Type Ibuprofen [Motrin] 600 mg PO TID #15 tab 11/12/16 Rx traMADol/Acetaminophen [Ultracet 1 tab PO TID PRN #20 tab 11/12/16 Rx 37.5/325 mg] Allergies/Adverse Reactions: Allergies Allergy/AdvReac Type Severity Reaction Status Date / Time No Known Allergies Allergy Verified 11/12/16 17:02 - Medications Medications: Current Medications Acetaminophen (Tylenol 325mg Tab) 650 mg PO Q6 PRN PRN Reason: Fever >100.4 F Last Admin: 11/16/16 03:45 Dose: 650 mg Docusate Sodium (Colace) 100 mg PO TID [facility] Last Admin: 11/16/16 13:42 Dose: 100 mg Sodium Chloride (Sodium Chloride 0.9%) 1,000 mls @ 100 mls/hr IV .Q10H [facility] Last Admin: 11/16/16 12:36 Dose: Not Given Imipenem/Cilastatin Sodium 500 (mg/ Sodium Chloride) 100 mls @ 100 mls/hr IVPB Q6H [facility] Last Admin: 11/16/16 12:34 Dose: 100 mls/hr Morphine Sulfate (Morphine) 1 mg IVP Q6 PRN PRN Reason: Pain, moderate (4-7) Ondansetron HCl (Zofran Inj) 4 mg IVP Q6 PRN PRN Reason: Nausea/Vomiting Last Admin: 11/13/16 20:37 Dose: 4 mg Pantoprazole Sodium (Protonix Ec Tab) 40 mg PO DAILY [facility] Last Admin: 11/16/16 09:20 Dose: 40 mg Saccharomyces Boulardii (Florastor) 250 mg PO BID [facility] Last Admin: 11/16/16 09:20 Dose: 250 mg Tramadol HCl (Ultram) 100 mg PO Q6H PRN PRN Reason: Pain, moderate (4-7) Physical Exam - Constitutional Appears: Chronically Ill - Head Exam Head Exam: ATRAUMATIC, NORMAL INSPECTION, NORMOCEPHALIC - Eye Exam Eye Exam: Normal appearance, PERRL Pupil Exam: NORMAL ACCOMODATION, PERRL - ENT Exam ENT Exam: Mucous Membranes Moist, Normal Exam - Neck Exam Neck exam: Positive for: Normal Inspection - Respiratory Exam Respiratory Exam: Decreased Breath Sounds, NORMAL BREATHING PATTERN - Cardiovascular Exam Cardiovascular Exam: REGULAR RHYTHM, +S1, +S2 - GI/Abdominal Exam GI & Abdominal Exam: Normal Bowel Sounds - Rectal Exam Rectal Exam: Deferred - Exam Exam: NORMAL INSPECTION - Extremities Exam Extremities exam: Positive for: normal inspection - Back Exam Back exam: NORMAL INSPECTION - Neurological Exam Neurological exam: Alert, Oriented x3 - Psychiatric Exam Psychiatric exam: Normal Affect, Normal Mood - Skin Skin Exam: Normal Color, Warm Results - Vital Signs Recent Vital Signs: Last Vital Signs Temp 97 F L 11/16/16 16:17 Pulse 78 11/16/16 16:17 Resp 20 11/16/16 16:17 BP 128/62 11/16/16 16:17 Pulse Ox 97 11/16/16 16:17 - Labs Result Diagrams: 11/16/16 07:01 11/16/16 07:01 Labs: Laboratory Results - last 24 hr 11/15/16 11/15/16 11/16/16 16:01 20:59 07:01 WBC 15.2 H RBC 3.48 L Hgb 9.0 L Hct 27.9 L MCV 80.3 MCH 25.9 L MCHC 32.2 L RDW 16.3 H Plt Count 206 MPV 7.9 Neut % (Auto) 81.7 H Lymph % (Auto) 10.0 L Hunt % (Auto) 7.3 Eos % (Auto) 0.6 Baso % (Auto) 0.4 Neut # 12.4 H Lymph # 1.5 Hunt # 1.1 H Eos # 0.1 Baso # 0.1 Sodium Potassium Chloride Carbon Dioxide Anion Gap BUN Creatinine Est GFR ( Amer) Est GFR (Non-Af Amer) POC Glucose (mg/dL) 132 H 134 H Random Glucose Calcium Magnesium Total Bilirubin AST ALT Alkaline Phosphatase Total Protein Albumin Globulin Albumin/Globulin Ratio 11/16/16 11/16/16 11/16/16 07:01 07:22 11:31 WBC RBC Hgb Hct MCV MCH MCHC RDW Plt Count MPV Neut % (Auto) Lymph % (Auto) Hunt % (Auto) Eos % (Auto) Baso % (Auto) Neut # Lymph # Hunt # Eos # Baso # Sodium 130 L Potassium 4.1 Chloride 97 L Carbon Dioxide 25 Anion Gap 12 BUN 15 Creatinine 0.8 Est GFR ( Amer) > 60 Est GFR (Non-Af Amer) > 60 POC Glucose (mg/dL) 117 H 132 H Random Glucose 112 H Calcium 8.5 L Magnesium 1.7 Total Bilirubin 0.9 AST 24 ALT 23 Alkaline Phosphatase 105 Total Protein 6.5 Albumin 3.1 L Globulin 3.4 Albumin/Globulin Ratio 0.9 L 11/16/16 16:02 WBC RBC Hgb Hct MCV MCH MCHC RDW Plt Count MPV Neut % (Auto) Lymph % (Auto) Hunt % (Auto) Eos % (Auto) Baso % (Auto) Neut # Lymph # Hunt # Eos # Baso # Sodium Potassium Chloride Carbon Dioxide Anion Gap BUN Creatinine Est GFR ( Amer) Est GFR (Non-Af Amer) POC Glucose (mg/dL) 130 H Random Glucose Calcium Magnesium Total Bilirubin AST ALT Alkaline Phosphatase Total Protein Albumin Globulin Albumin/Globulin Ratio Assessment & Plan - Assessment and Plan (Free Text) Assessment: Palliative consult Code status Full Code, there is no advance directive on chart, PPS 40%. I reviewed medical records, all diagnostic studies, examined and interviewed patient in the bed. Translation provided by in demand translation. Goals of care discussed. Patient is alert, oriented X 3, Polish speaking. patient aspperas in noacute distress but complains of pain o both hips radiating down the legs, and not being relieved by Ultram 50 mg Q 8 hr. Patient also reports that his appetite was poor, last BM 4 days ago and unwanted weight loss , 30 kg /1 month. I reassured him that will address pain management what made him calm. This was discussed to Doctor tree and action taken. I further elicited patient's expectations of this hospitalization and what he expect in terms of his illness. Patient was very clear in his desire to be pain free and be able to walk. patient is aware of his bladder cancer diagnosis but states no awareness of any further disease spreading. We discussed Code status, where patient stated that he would want all possible measures to be applied to support his life. In the evnt if he looses his ability to make decision he would want his son Bob uribe [phone] to be surrogate decision maker. I assisted him completing the POLST. Impression * This is a chronically ill patient with acute event of bone pain * Patient is aware of bladder cancer diagnosis but is determined to get better and is expecting medical staff to assist him in reaching that goal * Patient is not aware of any spreading of cancer * Patient would want all available measures to be applied to support his life * Patient named his son Bob as surrogate decision maker * Full Code * POLST on chart * Patient needs to be presented with PET scan results and possible mets to bones and abdomen * Increase pain meds for better pain control * Bowel regimen Thank you very much for consulting Palliative Care
--- NOTE | 2016-11-17 07:40 | CP.PCM.PN ---
<TataEri - Last Filed: 11/17/16 16:39> Subjective - Date & Time of Evaluation Date of Evaluation: 11/17/16 Time of Evaluation: 07:38 - Subjective Subjective: Patient seen and examined at bedside. Per , patient did not sleep overnight due to uncontrolled pain. He also was unable to tolerate eating due to severity of pain. Plan to discuss imaging findings with patient this afternoon to make sure he is aware of metastases to his bones which is likely cause of pain. Following conversation, patient states he does not want narcotics for pain control. Patient continues to have lower back pain and limited mobility of lower extremities. Patient understands his prognosis. Objective - Vital Signs/Intake and Output Vital Signs (last 24 hours): Temp Pulse Resp BP Pulse Ox 98.7 F 81 20 132/65 96 11/16/16 23:40 11/16/16 23:40 11/16/16 23:40 11/16/16 23:40 11/16/16 23:40 Intake and Output: 11/17/16 11/17/16 06:59 18:59 Intake Total 500 Output Total 300 Balance 200 - Medications Medications: Current Medications Acetaminophen (Tylenol 325mg Tab) 650 mg PO Q6 PRN PRN Reason: Fever >100.4 F Last Admin: 11/16/16 03:45 Dose: 650 mg Docusate Sodium (Colace) 100 mg PO TID [facility] Last Admin: 11/16/16 17:41 Dose: 100 mg Sodium Chloride (Sodium Chloride 0.9%) 1,000 mls @ 100 mls/hr IV .Q10H [facility] Last Admin: 11/16/16 22:26 Dose: 100 mls/hr Imipenem/Cilastatin Sodium 500 (mg/ Sodium Chloride) 100 mls @ 100 mls/hr IVPB Q8H [facility] Last Admin: 11/17/16 06:04 Dose: 100 mls/hr Morphine Sulfate (Morphine) 1 mg IVP Q6 PRN PRN Reason: Pain, moderate (4-7) Ondansetron HCl (Zofran Inj) 4 mg IVP Q6 PRN PRN Reason: Nausea/Vomiting Last Admin: 11/13/16 20:37 Dose: 4 mg Pantoprazole Sodium (Protonix Ec Tab) 40 mg PO DAILY [facility] Last Admin: 11/16/16 09:20 Dose: 40 mg Saccharomyces Boulardii (Florastor) 250 mg PO BID [facility] Last Admin: 11/16/16 17:41 Dose: 250 mg Tramadol HCl (Ultram) 100 mg PO Q6H PRN PRN Reason: Pain, moderate (4-7) Last Admin: 11/17/16 00:39 Dose: 100 mg - Labs Labs: 11/16/16 07:01 11/16/16 07:01 PT 15.8 SECONDS (9.7-12.2) H 11/13/16 11:08 INR 1.4 11/13/16 11:08 APTT 27 SECONDS (21-34) 11/13/16 11:08 - Constitutional Appears: Non-toxic, No Acute Distress - Head Exam Head Exam: ATRAUMATIC, NORMAL INSPECTION, NORMOCEPHALIC - Eye Exam Eye Exam: EOMI - ENT Exam ENT Exam: Mucous Membranes Moist - Respiratory Exam Respiratory Exam: Clear to Ausculation Bilateral, NORMAL BREATHING PATTERN. absent: Rales, Rhonchi, Wheezes - Cardiovascular Exam Cardiovascular Exam: +S1, +S2. absent: Bradycardia, Tachycardia - GI/Abdominal Exam GI & Abdominal Exam: Soft, Normal Bowel Sounds. absent: Distended, Tenderness - Extremities Exam Extremities Exam: Normal Capillary Refill, Tenderness. absent: Pedal Edema - Back Exam Back Exam: tenderness - Neurological Exam Neurological Exam: Alert, Awake, Oriented x3 - Psychiatric Exam Psychiatric exam: Normal Affect, Normal Mood - Skin Skin Exam: Intact, Normal Color Assessment and Plan - Assessment and Plan (Free Text) Assessment: 1. Bilateral Lower extremity and back Pain likely secondary to metastatic disease Chest/Abd/Pelvis CT with po contrast (11/12/16): Stable appearing lobular pleural densities of both lung bases. Small nodules right lower lung base unchanged. Suspect new metastatic lesion within the right lobe liver. Hepatomegaly. Small cyst caudate lobe felt to be present. Splenomegaly. Sclerotic metastatic deposits within the pelvis sacrum of both hips, L2 segment and T7 segments. Status post cystectomy and prostatectomy with a right-sided ileal conduit and ileostomy right lower quadrant of the abdomen. Pain not controlled with Tramadol, however, patient does not want narcotics for pain control. Restart Tramadol 50 mg po TID and start Gabapentin 100 mg po TID. Discontinue Morphine 1 mg IVPB q6h PRN Regular diet Normal Saline IV @100cc Zofran 4mg IVP Q6h PRN for nausea Venous dopplers negative Pain management on consult-->help appreciated Palliative Care Consult, Nellie Griffith, help appreciated. Per palliative care consult, patient wishes to remain full code. PT/OT 04/2016 PET Scan: revealed enlarged lymph nodes in lower abdomen left of aortic bifurcation demonstrates increased FG uptake and multiple osseous metastasis including T7, L2, pelvic bones bilaterally, and bilateral femurs (see full report) 02/2016 CT chest/abd/pelvis: No evidence of thoracic metastasis. Stable pleural plaques bilaterally. Several new mildly enlarged retroperitoneal lymph nodes are noted. Status post left nephrectomy and cystectomy with formation of ileal conduit (see full report) 2. Symptomatic Anemia 11/17: H&H: 8.3/,4 Hemoglobin improved to 9.0 from 8.8 s/p transfusion Type and Cross Transfused pRBCs Heme/Onc consulted, Dr. Billy Del Toro, help appreciated Continue to monitor H/H 3. 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 Billy Del Toro, help appreciated. Dr. Del Toro to discuss possible new chemotherapeutic agent with patient. Urology consult: Dr. Richmond on board, help appreciated. Palliative Care Consult, Nellie Griffith, help appreciated 4. Pyuria Afebrile Urine Culture: Klebsiella pneumoniae Will follow-up repeat urine culture. Discontinue Rocephin IV (started on 11/14/16) as patient is still spiking fever. Start Primaxin 500 mg IVPB q6h (11/16/16). Florastor 250mg PO BID 5. Prophylactic Measures Protonix 40 mg IVP daily Zofran 4 mg IVP Q6H PRN Tylenol 650 mg PO Q6H PRN Boost TID for dietary supplement PT/OT [employer] referral <Melly Mendez V - Last Filed: 11/17/16 18:25> Objective - Vital Signs/Intake and Output Vital Signs (last 24 hours): Temp Pulse Resp BP Pulse Ox 99.2 F 82 20 123/68 97 11/17/16 16:00 11/17/16 16:00 11/17/16 16:00 11/17/16 16:00 11/17/16 16:00 Intake and Output: 11/17/16 11/17/16 06:59 18:59 Intake Total 500 1100 Output Total 300 200 Balance 200 900 - Medications Medications: Current Medications Acetaminophen (Tylenol 325mg Tab) 650 mg PO Q6 PRN PRN Reason: Fever >100.4 F Last Admin: 11/16/16 03:45 Dose: 650 mg Docusate Sodium (Colace) 100 mg PO TID [facility] Last Admin: 11/17/16 17:55 Dose: 100 mg Gabapentin (Neurontin) 100 mg PO TID [facility] Last Admin: 11/17/16 17:54 Dose: 100 mg Sodium Chloride (Sodium Chloride 0.9%) 1,000 mls @ 100 mls/hr IV .Q10H [facility] Last Admin: 11/17/16 09:00 Dose: 100 mls/hr Imipenem/Cilastatin Sodium 500 (mg/ Sodium Chloride) 100 mls @ 100 mls/hr IVPB Q8H [facility] Last Admin: 11/17/16 15:02 Dose: 100 mls/hr Ondansetron HCl (Zofran Inj) 4 mg IVP Q6 PRN PRN Reason: Nausea/Vomiting Last Admin: 11/13/16 20:37 Dose: 4 mg Oxycodone HCl (Oxycontin Extended Release Tab) 20 mg PO Q12 [facility] Pantoprazole Sodium (Protonix Ec Tab) 40 mg PO DAILY [facility] Last Admin: 11/17/16 10:53 Dose: 40 mg Saccharomyces Boulardii (Florastor) 250 mg PO BID [facility] Last Admin: 11/17/16 17:55 Dose: 250 mg Tramadol HCl (Ultram) 50 mg PO TID [facility] Last Admin: 11/17/16 17:54 Dose: 50 mg - Labs Labs: 11/17/16 08:30 11/17/16 08:30 PT 15.8 SECONDS (9.7-12.2) H 11/13/16 11:08 INR 1.4 11/13/16 11:08 APTT 27 SECONDS (21-34) 11/13/16 11:08 Attending/Attestation - Attestation I have personally seen and examined this patient.: Yes I have fully participated in the care of the patient.: Yes I have reviewed all pertinent clinical information, including history, physical exam and plan: Yes Notes (Text): Patient seen, examined, and case discussed with day-time resident. Patient is mainly Swedish speaking son, who speaks Sami and Swedish at bedside. Patient reports history of metastatic bladder cancer, wherein he reports his heme-onc that his prior heme-onc there is no chemotherapy treatment that could help him and reaffirmed this during our conversation today. I also discussed with the patient and son regarding that he has metastasis in the back and the hip which is accounting for this type of pain. I offered the patient again narcotic pain however he reports the hallucinations are so bad that he does not want it to affect his mind, and wants to try the Tramadol. He understands he needs to try attempt to get out of bed and part of that process is adequate pain control. Patient's main complaints he reports bilateral leg pain which seems electric pain. Patient has been on tylenol, tramadol and oxycodone for pain relief. Patient reports he was pain controlled with the oxycodone, however, he felt "loopy and out of it" and prefers tramadol. Increased the Tramadol 100mg PO TID to try to modify his pain and IV morphine PRN if needs. Patient's pain limits patient in attempts of trying to work with physical therapy. Patient's Tmax: 99.2F, Primaxin 500mg IV Q 8 hours (Active since 11/16/16) to cover for his Klebsiella urinary traction infection. PT evaluation recommended for subacute rehab. Assessment/Plan 1. Bilateral Lower extremity and Back Pain NS 100cc/hr CT chest/abd/pelvis with PO contrast (11/12/16): stable appearing lobular pelural densities of both lung bases. Small nodules right lower base unchanged. Suspect new metastatic lesion within the right lobe liver. Hepatomegaly. Splenomegaly. Sclerotic metastatic deposits withiin the pelvis sacrum of hips, L2 and T7 segments, s/p post cystectomy and prostatectomy with right sided ileal conduit and ileostomy right lower quadrant 04/2016 PET Scan: revealed enlarged lymph nodes in lower abdomen left of aortic bifurcation demonstrates increased FG uptake and multiple osseous metastasis including T7, L2, pelvic bones bilaterally, and bilateral femurs (see full report) 02/2016 CT chest/abd/pelvis: No evidence of thoracic metastasis. Stable pleural plaques bilaterally. Several new mildly enlarged retroperitoneal lymph nodes are noted. Status post left nephrectomy and cystectomy with formation of ileal conduit (see full report) Percocet 5/325 mg 1 tab Q4H PRN Pain management on consult-->help appreciated Palliative Care Consult, Nellie Griffith, help appreciated PT/OT Venous and Arterial dopplers: negative for acute findings D/C oxydocone/hydromorphine reason: patient cannot tolerating side effects ( lethargic, lightheaded, hallucinations) prefers Tramadol Pain PRN: Tramadol 50mg PO TID and Gabapentin 100mg PO TID 2. Symptomatic Anemia Patient exhibiting dyspnea, NINO, Fatigue, and weakness Hgb 8.3 Heme/Onc Consult, Dr. Billy Del Toro, help appreciated Monitor H/H 3. Bladder CA with Metastatic Disease CT chest/abd/pelvis with PO contrast (11/12/16): stable appearing lobular pleural densities of both lung bases. Small nodules right lower lung base unchanged. Suspect new metastatic lesion within the right lobe liber. Hepatomegaly. Small cyst lobe felt to be present. Splenomegaly. Sclerotic metastatic deposits within the pelvis sacrum of both hips, L2 segment and T7 segments. status post cystectomy and prostatectomy with right sided ileal conduit and ileostomy right lower quadrant of the abdomen 04/2016 PET Scan: revealed enlarged lymph nodes in lower abdomen left of aortic bifurcation demonstrates increased FG uptake and multiple osseous metastasis including T7, L2, pelvic bones bilaterally, and bilateral femurs (see full report) 02/2016 CT chest/abd/pelvis: No evidence of thoracic metastasis. Stable pleural plaques bilaterally. Several new mildly enlarged retroperitoneal lymph nodes are noted. 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 Billy Del Toro, help appreciated Urology consult: Dr. Richmond on board, help appreciated 4. Urinary Tract Infection Urine culture (11/13/16): Klebsiella Pneumoniae Florastor 250mg PO bid Primaxin 500mg IV Q 8 hours (Active since 11/16/16) to cover for his Klebsiella urinary traction infection Blood culture (11/16/16) No growth after 24 hours X2 Urine culture (11/16/16)-->prior to Primaxin being started 5. Unsteady Gait PT eval: subacute rehab 6. Prophylactic Measures Protonix 40 mg IVP daily Zofran 4 mg IVP Q6H PRN Tylenol 650 mg PO Q6H PRN Tramadol 100mg PO TID PT: subacute rehab [employer] referral Larryce for appetite stimulant
[2016-11-17 08:39] LABS: BASO # 0.1 K/uL (0.0-0.2); BASO % 0.4 % (0.0-2.0); EOS # 0.1 K/uL (0.0-0.7); EOS % 1.1 % (0.0-4.0); HEMATOCRIT 25.4 % (35.0-51.0); LYMPH # 1.1 K/uL (1.0-4.3); LYMPH % 9.1 % (20.0-40.0); MEAN CELL VOLUME 80.8 fL (80.0-94.0); MEAN CORPUSCULAR HEMOGLOBIN 26.4 pg (27.0-31.0); MEAN CORPUSCULAR HGB CONC 32.7 g/dL (33.0-37.0); MEAN PLATELET VOLUME 7.9 fL (7.2-11.7); MONO # 0.6 K/uL (0.0-0.8); MONO % 5.3 % (0.0-10.0); PLATELET COUNT 193 K/uL (130-400); RED CELL DISTRIBUTION WIDTH 16.2 % (11.5-14.5); WHITE BLOOD COUNT 12.1 K/uL (4.8-10.8)
[2016-11-17] MEDS: Sodium Chloride 0.9% 1,000 ML IV SCH ×3 (09:00→22:04)
[2016-11-17 09:05] LABS: CHLORIDE 97 mmol/L (98-107)
[2016-11-17 09:06] LABS: POTASSIUM 3.6 mmol/L (3.6-5.2); SODIUM 132 mmol/L (132-148)
[2016-11-17 09:08] LABS: CARBON DIOXIDE 27 mmol/L (22-30); GFR AFRICAN-AMERICAN > 60
[2016-11-17 09:09] LABS: ALB/GLOB RATIO 0.8 (1.0-2.1); ALKALINE PHOSPHATASE 101 U/L (38-126); ALT/SGPT 25 U/L (21-72); AST/SGOT 23 U/L (17-59); BILIRUBIN,TOTAL 0.9 mg/dL (0.2-1.3); BLOOD UREA NITROGEN 12 mg/dL (9-20); CALCIUM 8.4 mg/dl (8.6-10.4); GLUCOSE,RANDOM 101 mg/dL (75-110); PHOSPHOROUS 4.1 mg/dL (2.5-4.5); TOTAL PROTEIN 6.5 g/dL (6.3-8.3)
[2016-11-17 09:10] LABS: MAGNESIUM 1.8 mg/dL (1.6-2.3)
[2016-11-17 09:28] LABS: BASOPHIL 1 % (0-2); EOSINOPHIL 1 % (0-4); NEUTROPHIL 84 % (50-75); TOTAL CELLS COUNTED 100
[2016-11-17] MEDS ORDERED: Magnesium Sulfate 1 gm in D5W 1 GM/100 ML BAG IVPB ONE (10:00)
[2016-11-17] MEDS ORDERED: Potassium Chloride 20 mEq ER Tab PO ONE (10:00)
[2016-11-17] MEDS: Pantoprazole 40 mg EC Tab PO SCH (10:53)
[2016-11-17] MEDS: Saccharomyces Boulardi 250 mg Cap PO SCH ×2 (10:53→17:55)
--- NOTE | 2016-11-17 18:17 | CP.PCM.PN ---
Subjective - Date & Time of Evaluation Date of Evaluation: 11/17/16 Time of Evaluation: 18:00 - Subjective Subjective: Has pain in bones, controlled with pain meds Objective - Vital Signs/Intake and Output Vital Signs (last 24 hours): Temp Pulse Resp BP Pulse Ox 99.2 F 82 20 123/68 97 11/17/16 16:00 11/17/16 16:00 11/17/16 16:00 11/17/16 16:00 11/17/16 16:00 Intake and Output: 11/17/16 11/17/16 06:59 18:59 Intake Total 500 1100 Output Total 300 200 Balance 200 900 - Medications Medications: Current Medications Acetaminophen (Tylenol 325mg Tab) 650 mg PO Q6 PRN PRN Reason: Fever >100.4 F Last Admin: 11/16/16 03:45 Dose: 650 mg Docusate Sodium (Colace) 100 mg PO TID [facility] Last Admin: 11/17/16 17:55 Dose: 100 mg Gabapentin (Neurontin) 100 mg PO TID [facility] Last Admin: 11/17/16 17:54 Dose: 100 mg Sodium Chloride (Sodium Chloride 0.9%) 1,000 mls @ 100 mls/hr IV .Q10H [facility] Last Admin: 11/17/16 09:00 Dose: 100 mls/hr Imipenem/Cilastatin Sodium 500 (mg/ Sodium Chloride) 100 mls @ 100 mls/hr IVPB Q8H [facility] Last Admin: 11/17/16 15:02 Dose: 100 mls/hr Ondansetron HCl (Zofran Inj) 4 mg IVP Q6 PRN PRN Reason: Nausea/Vomiting Last Admin: 11/13/16 20:37 Dose: 4 mg Oxycodone HCl (Oxycontin Extended Release Tab) 20 mg PO Q12 [facility] Pantoprazole Sodium (Protonix Ec Tab) 40 mg PO DAILY [facility] Last Admin: 11/17/16 10:53 Dose: 40 mg Saccharomyces Boulardii (Florastor) 250 mg PO BID [facility] Last Admin: 11/17/16 17:55 Dose: 250 mg Tramadol HCl (Ultram) 50 mg PO TID [facility] Last Admin: 11/17/16 17:54 Dose: 50 mg - Labs Labs: 11/17/16 08:30 11/17/16 08:30 PT 15.8 SECONDS (9.7-12.2) H 11/13/16 11:08 INR 1.4 11/13/16 11:08 APTT 27 SECONDS (21-34) 11/13/16 11:08 - Head Exam Head Exam: ATRAUMATIC - Eye Exam Eye Exam: Normal appearance - ENT Exam ENT Exam: Mucous Membranes Dry - Respiratory Exam Respiratory Exam: NORMAL BREATHING PATTERN - Cardiovascular Exam Cardiovascular Exam: +S1, +S2 - GI/Abdominal Exam GI & Abdominal Exam: Normal Bowel Sounds - Extremities Exam Extremities Exam: Normal Inspection - Neurological Exam Neurological Exam: Oriented x3 - Psychiatric Exam Psychiatric exam: Normal Affect, Normal Mood - Skin Skin Exam: Warm Assessment and Plan (1) Anemia Assessment & Plan: chronic disease s/p PRBC transfusion Status: Acute (2) Bladder cancer Assessment & Plan: stage IV to liver and bone ?lungs pt considering chemotherapy but has not yet decided outpatient f/u Status: Acute
[2016-11-17] MEDS ORDERED: oxyCODONE 20 mg ER Tab (oxyCONTIN) PO SCH (22:00)
[2016-11-18] MEDS: Sodium Chloride 0.9% 1,000 ML IV SCH ×2 (06:14→15:50)
[2016-11-18 08:07] LABS: BASO % 0.4 % (0.0-2.0); EOS # 0.1 K/uL (0.0-0.7); EOS % 1.2 % (0.0-4.0); HEMATOCRIT 26.6 % (35.0-51.0); LYMPH % 8.6 % (20.0-40.0); MEAN CORPUSCULAR HEMOGLOBIN 26.2 pg (27.0-31.0); MEAN CORPUSCULAR HGB CONC 32.4 g/dL (33.0-37.0); MEAN PLATELET VOLUME 8.3 fL (7.2-11.7); MONO # 0.7 K/uL (0.0-0.8); NRBC % 0.1 % (0.0-2.0); PLATELET COUNT 204 K/uL (130-400); RED CELL DISTRIBUTION WIDTH 16.3 % (11.5-14.5); WHITE BLOOD COUNT 11.4 K/uL (4.8-10.8)
[2016-11-18 08:15] LABS: CHLORIDE 97 mmol/L (98-107)
[2016-11-18 08:16] LABS: POTASSIUM 4.3 mmol/L (3.6-5.2); SODIUM 132 mmol/L (132-148)
[2016-11-18 08:18] LABS: ALB/GLOB RATIO 0.8 (1.0-2.1); ALKALINE PHOSPHATASE 130 U/L (38-126); ALT/SGPT 23 U/L (21-72); AST/SGOT 21 U/L (17-59); BLOOD UREA NITROGEN 11 mg/dL (9-20); CARBON DIOXIDE 27 mmol/L (22-30); GFR AFRICAN-AMERICAN > 60; GLUCOSE,RANDOM 99 mg/dL (75-110); TOTAL PROTEIN 6.4 g/dL (6.3-8.3)
[2016-11-18 08:19] LABS: CALCIUM 8.4 mg/dl (8.6-10.4); MAGNESIUM 1.9 mg/dL (1.6-2.3); PHOSPHOROUS 4.1 mg/dL (2.5-4.5)
[2016-11-18 09:55] LABS: BASOPHIL 1 % (0-2); EOSINOPHIL 2 % (0-4); NEUTROPHIL 77 % (50-75); REACTIVE LYMPHOCYTES 1 % (0-0); TOTAL CELLS COUNTED 100
[2016-11-18] MEDS: Saccharomyces Boulardi 250 mg Cap PO SCH ×2 (10:49→18:08)
[2016-11-18] MEDS: Pantoprazole 40 mg EC Tab PO SCH (10:51)
--- NOTE | 2016-11-18 13:17 | CP.PCM.PN ---
Subjective - Date & Time of Evaluation Date of Evaluation: 11/18/16 Time of Evaluation: 13:12 - Subjective Subjective: Patient seen and examined at bedside. Per , patient again did not sleep overnight due to pain and was sleeping on initial attempt to perform physical exam. Patient states his pain is mildly improved. Discussed with him that one pain medication will be increased. He continues to feel weak and has difficulty moving his legs. He denies fever, chills, chest pain, palpitations, shortness of breath, wheezing, and abdominal pain. Patient's appetite is decreased and he states he is constipated and asking for enema. Objective - Vital Signs/Intake and Output Vital Signs (last 24 hours): Temp Pulse Resp BP Pulse Ox 98.3 F 82 20 116/63 95 11/18/16 08:25 11/18/16 08:25 11/18/16 08:25 11/18/16 08:25 11/18/16 08:25 Intake and Output: 11/18/16 11/18/16 06:59 18:59 Intake Total 2030 Output Total 750 Balance 1280 - Medications Medications: Current Medications Acetaminophen (Tylenol 325mg Tab) 650 mg PO Q6 PRN PRN Reason: Fever >100.4 F Last Admin: 11/16/16 03:45 Dose: 650 mg Docusate Sodium (Colace) 100 mg PO TID [facility] Last Admin: 11/18/16 10:47 Dose: 100 mg Gabapentin (Neurontin) 300 mg PO TID [facility] Sodium Chloride (Sodium Chloride 0.9%) 1,000 mls @ 100 mls/hr IV .Q10H [facility] Last Admin: 11/18/16 06:14 Dose: 100 mls/hr Imipenem/Cilastatin Sodium 500 (mg/ Sodium Chloride) 100 mls @ 100 mls/hr IVPB Q8H [facility] Last Admin: 11/18/16 06:10 Dose: 100 mls/hr Megestrol Acetate (Megace) 40 mg PO DAILY [facility] Last Admin: 11/18/16 10:48 Dose: 40 mg Ondansetron HCl (Zofran Inj) 4 mg IVP Q6 PRN PRN Reason: Nausea/Vomiting Last Admin: 11/13/16 20:37 Dose: 4 mg Pantoprazole Sodium (Protonix Ec Tab) 40 mg PO DAILY [facility] Last Admin: 11/18/16 10:51 Dose: 40 mg Saccharomyces Boulardii (Florastor) 250 mg PO BID [facility] Last Admin: 11/18/16 10:49 Dose: 250 mg Tramadol HCl (Ultram) 50 mg PO TID [facility] Last Admin: 11/18/16 10:49 Dose: 50 mg - Labs Labs: 11/18/16 07:49 11/18/16 07:49 PT 15.8 SECONDS (9.7-12.2) H 11/13/16 11:08 INR 1.4 11/13/16 11:08 APTT 27 SECONDS (21-34) 11/13/16 11:08 - Constitutional Appears: Non-toxic, No Acute Distress - Head Exam Head Exam: ATRAUMATIC, NORMAL INSPECTION, NORMOCEPHALIC - Eye Exam Eye Exam: EOMI, Normal appearance, PERRL - ENT Exam ENT Exam: Mucous Membranes Moist - Neck Exam Neck Exam: Full ROM, Normal Inspection - Respiratory Exam Respiratory Exam: Clear to Ausculation Bilateral, NORMAL BREATHING PATTERN. absent: Rales, Rhonchi, Wheezes - Cardiovascular Exam Cardiovascular Exam: +S1, +S2 - GI/Abdominal Exam GI & Abdominal Exam: Soft, Normal Bowel Sounds. absent: Firm, Rigid, Tenderness - Extremities Exam Extremities Exam: Tenderness. absent: Calf Tenderness, Full ROM, Pedal Edema - Back Exam Back Exam: vertebral tenderness - Neurological Exam Neurological Exam: Alert, Awake, Oriented x3 - Psychiatric Exam Psychiatric exam: Normal Affect, Normal Mood - Skin Skin Exam: Intact, Normal Color Assessment and Plan - Assessment and Plan (Free Text) Assessment: 1. Bilateral Lower extremity and back Pain likely secondary to metastatic disease Chest/Abd/Pelvis CT with po contrast (11/12/16): Stable appearing lobular pleural densities of both lung bases. Small nodules right lower lung base unchanged. Suspect new metastatic lesion within the right lobe liver. Hepatomegaly. Small cyst caudate lobe felt to be present. Splenomegaly. Sclerotic metastatic deposits within the pelvis sacrum of both hips, L2 segment and T7 segments. Status post cystectomy and prostatectomy with a right-sided ileal conduit and ileostomy right lower quadrant of the abdomen. Pain not controlled with Tramadol, however, patient does not want narcotics for pain control. Continue Tramadol 50 mg po TID and increase Gabapentin to 300 mg po TID. Regular diet Normal Saline IV @100cc Zofran 4mg IVP Q6h PRN for nausea Venous dopplers negative Pain management on consult-->help appreciated Palliative Care Consult, Nellie Griffith, help appreciated. Per palliative care consult, patient wishes to remain full code. PT/OT 04/2016 PET Scan: revealed enlarged lymph nodes in lower abdomen left of aortic bifurcation demonstrates increased FG uptake and multiple osseous metastasis including T7, L2, pelvic bones bilaterally, and bilateral femurs (see full report) 02/2016 CT chest/abd/pelvis: No evidence of thoracic metastasis. Stable pleural plaques bilaterally. Several new mildly enlarged retroperitoneal lymph nodes are noted. Status post left nephrectomy and cystectomy with formation of ileal conduit (see full report) 2. Symptomatic Anemia Improving 11/18: H&H: 8.6/26.6 Hemoglobin improved to 9.0 from 8.8 s/p transfusion Type and Cross Transfused pRBCs Heme/Onc consulted, Dr. Billy Del Toro, help appreciated Continue to monitor H/H 3. 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 Billy Del Toro, help appreciated. Patient considering possibly starting chemotherapy. Urology consult: Dr. Richmond on board, help appreciated. Palliative Care Consult, Nellie Griffith, help appreciated 4. Pyuria Tmax 99.3 Urine Culture (11/16/16): Enterococcus Faecalis Urine Culture (11/13/16): Klebsiella pneumoniae Will follow-up repeat urine culture. Discontinue Rocephin IV (started on 11/14/16) as patient is still spiking fever. Start Primaxin 500 mg IVPB q6h (11/16/16). Florastor 250mg PO BID 5. Unstable Gait Physical therapist unable to work with patient as family deferred due to patient being lethargic. 6. Prophylactic Measures Protonix 40 mg IVP daily Zofran 4 mg IVP Q6H PRN Tylenol 650 mg PO Q6H PRN Vanilla Boost TID for dietary supplement PT/OT [employer] referral
--- NOTE | 2016-11-18 13:28 | CP.PCM.PN ---
Subjective - Date & Time of Evaluation Date of Evaluation: 11/18/16 Time of Evaluation: 13:25 - Subjective Subjective: Patient seen and examined at bedside. Patient states he continues to experience intermittent cough, chest pain, and shortness of breath. He states he is expectorating a significant amount of green/yellow phlegm. He denies fever and chills but admits to some fatigue. Patient is able to ambulate without issue; however, he reports requiring nasal cannula oxygen through half the day. Patient also is complaining of increased urinary frequency and dysuria. He reports two episodes of diarrhea yesterday which has since resolved. He denies chest pain but notes abdominal irritation from coughing. Objective - Vital Signs/Intake and Output Vital Signs (last 24 hours): Temp Pulse Resp BP Pulse Ox 98.3 F 82 20 116/63 95 11/18/16 08:25 11/18/16 08:25 11/18/16 08:25 11/18/16 08:25 11/18/16 08:25 Intake and Output: 11/18/16 11/18/16 06:59 18:59 Intake Total 2030 Output Total 750 Balance 1280 - Medications Medications: Current Medications Acetaminophen (Tylenol 325mg Tab) 650 mg PO Q6 PRN PRN Reason: Fever >100.4 F Last Admin: 11/16/16 03:45 Dose: 650 mg Docusate Sodium (Colace) 100 mg PO TID [facility] Last Admin: 11/18/16 10:47 Dose: 100 mg Gabapentin (Neurontin) 300 mg PO TID [facility] Sodium Chloride (Sodium Chloride 0.9%) 1,000 mls @ 100 mls/hr IV .Q10H [facility] Last Admin: 11/18/16 06:14 Dose: 100 mls/hr Imipenem/Cilastatin Sodium 500 (mg/ Sodium Chloride) 100 mls @ 100 mls/hr IVPB Q8H [facility] Last Admin: 11/18/16 06:10 Dose: 100 mls/hr Megestrol Acetate (Megace) 40 mg PO DAILY [facility] Last Admin: 11/18/16 10:48 Dose: 40 mg Ondansetron HCl (Zofran Inj) 4 mg IVP Q6 PRN PRN Reason: Nausea/Vomiting Last Admin: 11/13/16 20:37 Dose: 4 mg Pantoprazole Sodium (Protonix Ec Tab) 40 mg PO DAILY [facility] Last Admin: 11/18/16 10:51 Dose: 40 mg Saccharomyces Boulardii (Florastor) 250 mg PO BID [facility] Last Admin: 11/18/16 10:49 Dose: 250 mg Tramadol HCl (Ultram) 50 mg PO TID [facility] Last Admin: 11/18/16 10:49 Dose: 50 mg - Labs Labs: 11/18/16 07:49 11/18/16 07:49 PT 15.8 SECONDS (9.7-12.2) H 11/13/16 11:08 INR 1.4 11/13/16 11:08 APTT 27 SECONDS (21-34) 11/13/16 11:08 - Constitutional Appears: Non-toxic, No Acute Distress - Head Exam Head Exam: ATRAUMATIC, NORMAL INSPECTION, NORMOCEPHALIC - Eye Exam Eye Exam: EOMI, Normal appearance, PERRL - ENT Exam ENT Exam: Mucous Membranes Moist - Neck Exam Neck Exam: Full ROM, Normal Inspection - Respiratory Exam Respiratory Exam: Wheezes. absent: Chest Wall Tenderness, Clear to Ausculation Bilateral - Cardiovascular Exam Cardiovascular Exam: +S1, +S2. absent: Bradycardia, Tachycardia - GI/Abdominal Exam GI & Abdominal Exam: Soft, Normal Bowel Sounds. absent: Distended, Firm, Tenderness - Extremities Exam Extremities Exam: absent: Joint Swelling, Pedal Edema, Tenderness - Back Exam Back Exam: NORMAL INSPECTION - Neurological Exam Neurological Exam: Alert, Awake, Oriented x3 - Psychiatric Exam Psychiatric exam: Normal Affect, Normal Mood - Skin Additional comments: diffuse scaly plaques to bilateral lower extremities. Well demarcated scaly plaques located diffusely to trunk and upper extremities. Assessment and Plan - Assessment and Plan (Free Text) Assessment: COPD exacerbation Patient continues to have significant wheezing sputum culture positive for gram negative rods, identification pending. f/u Repeat CXR (11/18/16) Chest CT w/o contrast: There are atelectatic/scarring changes both lung bases including on the lingular and middle lobe regions. Central lobular emphysematous changes with upper lobe predominance. There are also small bulla and/or of large bleb changes in the right lung apex and to a lesser degree left and at anterior upper lung field. Small calcific granuloma left lobe apex. Small nodule lateral aspect left upper lobe and another in the right lower lobe. Followup CT scan 3 months could be performed to assess stability. In situ IVC filter. (see full report) CXR- 11/13/16- Vague patchy opacity seen in the right lung base could represent atelectasis vs developing infiltrate. Minimal left basilar atelectasis. (Please see full report) Continue on Solumedrol 40mg IVP Q8h Continue Pulmicort 0.5 mg INH Q12h Continue Duonebs RQ4h scheduled Discontinue Albuterol 1.25 INH RQ3 prn wheezing Continue Guaifenesin/Dextromethorphan 10 ml po q4h PRN for cough Continue Zithromax 250mg PO daily Continue Avelox 400 mg IVPB Q24h ROMIs negative x 3 Dysuria f/u urinalysis and urine culture Diarrhea Start Florastor 250 mg po BID f/u c. 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 Prophylactic Measures Pepcid 20 mg po BID Held Heparin due to hx of retroperitoneal bleed
--- NOTE | 2016-11-19 05:46 | CP.PCM.PN ---
Subjective - Date & Time of Evaluation Date of Evaluation: 11/19/16 Time of Evaluation: 05:45 - Subjective Subjective: Patient seen and examined at bedside. The patient was complaining of severe nausea, vomiting x1, abdominal pain, and "intestinal malaise" this morning. He has not had a bowel movement in the past 8 days. In terms of pain management, he states that his pain is unimproved and is preventing him from getting rest. The pain also prevents him from moving around in bed in order to get into a more comfortable position. He states that he currently has "no will to do anything" because of the pain. He has continued loss of appetite, denies depression, but states that he has some anxiety about his current situation. The patient has not made up his mind about chemotherapy as of yet and is very emotional at the mention of chemotherapy. He seems to be very distressed emotionally and tired due to his situation. The patient is requesting permission to do a chamomile tea enema that his normally does for him at home. Objective - Vital Signs/Intake and Output Vital Signs (last 24 hours): Temp Pulse Resp BP Pulse Ox 99.7 F H 80 20 120/69 96 11/18/16 23:23 11/18/16 23:23 11/18/16 23:23 11/18/16 23:23 11/18/16 23:23 Intake and Output: 11/18/16 11/19/16 18:59 06:59 Intake Total 980 Output Total 550 Balance 430 - Medications Medications: Current Medications Acetaminophen (Tylenol 325mg Tab) 650 mg PO Q6 PRN PRN Reason: Fever >100.4 F, pain Last Admin: 11/18/16 22:02 Dose: 650 mg Docusate Sodium (Colace) 100 mg PO TID [facility] Last Admin: 11/18/16 18:07 Dose: 100 mg Gabapentin (Neurontin) 300 mg PO TID [facility] Last Admin: 11/18/16 18:07 Dose: 300 mg Imipenem/Cilastatin Sodium 500 (mg/ Sodium Chloride) 100 mls @ 100 mls/hr IVPB Q8H [facility] Last Admin: 11/18/16 22:07 Dose: 100 mls/hr Lactulose (Enulose) 20 gm PO HS [facility] Last Admin: 11/18/16 22:00 Dose: 20 gm Megestrol Acetate (Megace) 40 mg PO DAILY [facility] Last Admin: 11/18/16 10:48 Dose: 40 mg Ondansetron HCl (Zofran Inj) 4 mg IVP Q6 PRN PRN Reason: Nausea/Vomiting Last Admin: 11/13/16 20:37 Dose: 4 mg Pantoprazole Sodium (Protonix Ec Tab) 40 mg PO DAILY [facility] Last Admin: 11/18/16 10:51 Dose: 40 mg Saccharomyces Boulardii (Florastor) 250 mg PO BID [facility] Last Admin: 11/18/16 18:08 Dose: 250 mg Tramadol HCl (Ultram) 50 mg PO TID [facility] Last Admin: 11/18/16 18:08 Dose: 50 mg - Labs Labs: 11/18/16 07:49 11/18/16 07:49 PT 15.8 SECONDS (9.7-12.2) H 11/13/16 11:08 INR 1.4 11/13/16 11:08 APTT 27 SECONDS (21-34) 11/13/16 11:08 - Constitutional Appears: In Acute Distress, Unkempt, Chronically Ill - Head Exam Head Exam: ATRAUMATIC, NORMAL INSPECTION, NORMOCEPHALIC - Eye Exam Eye Exam: EOMI, Normal appearance, PERRL - Neck Exam Neck Exam: Full ROM, Normal Inspection. absent: Tenderness - Respiratory Exam Respiratory Exam: Wheezes. absent: Chest Wall Tenderness, Clear to Ausculation Bilateral - Cardiovascular Exam Cardiovascular Exam: RRR, +S1, +S2. absent: Bradycardia, Tachycardia - GI/Abdominal Exam GI & Abdominal Exam: Soft, Tenderness, Normal Bowel Sounds. absent: Distended, Firm - Extremities Exam Extremities Exam: absent: Joint Swelling, Pedal Edema, Tenderness - Back Exam Back Exam: NORMAL INSPECTION - Neurological Exam Neurological Exam: Alert, Awake, Oriented x3 - Psychiatric Exam Psychiatric exam: Anxious Assessment and Plan - Assessment and Plan (Free Text) Assessment: Bilateral Lower extremity and back Pain likely secondary to metastatic disease Patient emotional regarding his condition preventing him from being "functional " Chest/Abd/Pelvis CT with po contrast (11/12/16): Stable appearing lobular pleural densities of both lung bases. Small nodules right lower lung base unchanged. Suspect new metastatic lesion within the right lobe liver. Hepatomegaly. Small cyst caudate lobe felt to be present. Splenomegaly. Sclerotic metastatic deposits within the pelvis sacrum of both hips, L2 segment and T7 segments. Status post cystectomy and prostatectomy with a right-sided ileal conduit and ileostomy right lower quadrant of the abdomen. Pain not controlled with Tramadol, however, patient does not want narcotics for pain control. Continue Tramadol 50 mg po TID and Gabapentin 300 mg po TID Regular diet Normal Saline IV @100cc Zofran 4mg IVP Q6h PRN for nausea Venous dopplers negative Pain management on consult-->help appreciated Palliative Care Consult, Nellie Griffith, help appreciated. Per palliative care consult, patient wishes to remain full code. PT/OT 04/2016 PET Scan: revealed enlarged lymph nodes in lower abdomen left of aortic bifurcation demonstrates increased FG uptake and multiple osseous metastasis including T7, L2, pelvic bones bilaterally, and bilateral femurs (see full report) 02/2016 CT chest/abd/pelvis: No evidence of thoracic metastasis. Stable pleural plaques bilaterally. Several new mildly enlarged retroperitoneal lymph nodes are noted. Status post left nephrectomy and cystectomy with formation of ileal conduit (see full report) Abdominal Pain + constipation x 8 days Lactulose given. Pt had BM today. Nursing instructed to give chamomile tea enema if constipation persists Abdominal flat plate ordered Symptomatic Anemia Improving H&H: 8.9/27.9. Continue to monitor and plan to transfuse if hemoglobin continues to decrease Hemoglobin improved to 9.0 from 8.8 s/p transfusion Type and Cross Transfused pRBCs Heme/Onc consulted, Dr. 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 Billy Del Toro, help appreciated. Patient emotional regarding thought of chemotherapy. Urology consult: Dr. Richmond on board, help appreciated. Palliative Care Consult, Nellie Griffith, help appreciated Pyuria Tmax 100.8F Urine Culture (11/16/16): Enterococcus Faecalis Urine Culture (11/13/16): Klebsiella pneumoniae Will follow-up repeat urine culture. Discontinue Rocephin IV (started on 11/14/16) as patient is still spiking fever. Start Primaxin 500 mg IVPB q6h (11/16/16). Florastor 250mg PO BID Unstable Gait Physical therapist working with patient. Notes bed mobility, ADLs, transfers limited by constant pain. Gait continues to be impaired. 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
[2016-11-19 07:23] LABS: BASO # 0.1 K/uL (0.0-0.2); BASO % 0.5 % (0.0-2.0); EOS # 0.1 K/uL (0.0-0.7); EOS % 0.9 % (0.0-4.0); HEMATOCRIT 27.9 % (35.0-51.0); LYMPH # 1.5 K/uL (1.0-4.3); LYMPH % 10.1 % (20.0-40.0); MEAN CELL VOLUME 81.4 fL (80.0-94.0); MEAN CORPUSCULAR HEMOGLOBIN 26.1 pg (27.0-31.0); MEAN CORPUSCULAR HGB CONC 32.1 g/dL (33.0-37.0); MEAN PLATELET VOLUME 7.9 fL (7.2-11.7); MONO # 0.8 K/uL (0.0-0.8); MONO % 5.6 % (0.0-10.0); RED CELL DISTRIBUTION WIDTH 16.1 % (11.5-14.5); WHITE BLOOD COUNT 14.4 K/uL (4.8-10.8)
[2016-11-19 07:49] LABS: CHLORIDE 99 mmol/L (98-107)
[2016-11-19 07:50] LABS: POTASSIUM 3.7 mmol/L (3.6-5.2); SODIUM 132 mmol/L (132-148)
[2016-11-19 07:52] LABS: ALB/GLOB RATIO 0.8 (1.0-2.1); AST/SGOT 21 U/L (17-59); BILIRUBIN,TOTAL 0.8 mg/dL (0.2-1.3); CARBON DIOXIDE 24 mmol/L (22-30); GFR AFRICAN-AMERICAN > 60; TOTAL PROTEIN 6.5 g/dL (6.3-8.3)
[2016-11-19 07:53] LABS: ALKALINE PHOSPHATASE 127 U/L (38-126); ALT/SGPT 19 U/L (21-72); BLOOD UREA NITROGEN 9 mg/dL (9-20); CALCIUM 8.6 mg/dl (8.6-10.4); GLUCOSE,RANDOM 107 mg/dL (75-110); MAGNESIUM 1.9 mg/dL (1.6-2.3); PHOSPHOROUS 4.4 mg/dL (2.5-4.5)
[2016-11-19] MEDS: Saccharomyces Boulardi 250 mg Cap PO SCH ×2 (10:51→17:45)
[2016-11-19] MEDS: Pantoprazole 40 mg EC Tab PO SCH (10:52)
--- NOTE | 2016-11-19 16:48 | RAD ---
HISTORY: abdominal pain COMPARISON: CT abdomen and pelvis 11/13/2016 FINDINGS: BOWEL: Postsurgical changes in the inferior pelvis are noted history of prior cystectomy and prostatectomy with right-sided ileal conduit and ileostomy right lower quadrant. Small and large bowel loops appear dilated - a distal colonic obstruction cyst ileus are considerations. BONES: Mixed sclerotic changes likely consistent with known metastatic lesions OTHER FINDINGS: None. IMPRESSION: Dilated small and large bowel loops - distal colonic obstruction versus ileus. Follow-up recommended no upright views available to assess for any subdiaphragmatic free air
--- NOTE | 2016-11-19 18:10 | CP.PCM.PN ---
Subjective - Date & Time of Evaluation Date of Evaluation: 11/19/16 Time of Evaluation: 13:00 - Subjective Subjective: Has stomach and leg cramps Objective - Vital Signs/Intake and Output Vital Signs (last 24 hours): Temp Pulse Resp BP Pulse Ox 98.1 F 74 20 121/72 96 11/19/16 16:00 11/19/16 16:00 11/19/16 16:00 11/19/16 16:00 11/19/16 16:00 Intake and Output: 11/19/16 11/19/16 06:59 18:59 Intake Total 1080 300 Output Total 1350 600 Balance -270 -300 - Medications Medications: Current Medications Acetaminophen (Tylenol 325mg Tab) 650 mg PO Q6 PRN PRN Reason: Fever >100.4 F, pain Last Admin: 11/18/16 22:02 Dose: 650 mg Docusate Sodium (Colace) 100 mg PO TID [facility] Last Admin: 11/19/16 17:47 Dose: 100 mg Gabapentin (Neurontin) 300 mg PO TID [facility] Last Admin: 11/19/16 17:47 Dose: 300 mg Imipenem/Cilastatin Sodium 500 (mg/ Sodium Chloride) 100 mls @ 100 mls/hr IVPB Q8H [facility] Last Admin: 11/19/16 14:03 Dose: 100 mls/hr Lactulose (Enulose) 20 gm PO HS [facility] Last Admin: 11/18/16 22:00 Dose: 20 gm Megestrol Acetate (Megace) 40 mg PO DAILY [facility] Last Admin: 11/19/16 10:52 Dose: Not Given Ondansetron HCl (Zofran Inj) 4 mg IVP Q6 PRN PRN Reason: Nausea/Vomiting Last Admin: 11/19/16 08:40 Dose: 4 mg Pantoprazole Sodium (Protonix Ec Tab) 40 mg PO DAILY [facility] Last Admin: 11/19/16 10:52 Dose: Not Given Saccharomyces Boulardii (Florastor) 250 mg PO BID [facility] Last Admin: 11/19/16 17:45 Dose: 250 mg Tramadol HCl (Ultram) 50 mg PO TID [facility] Last Admin: 11/19/16 17:49 Dose: 50 mg - Labs Labs: 11/19/16 07:07 11/19/16 07:07 PT 15.8 SECONDS (9.7-12.2) H 11/13/16 11:08 INR 1.4 11/13/16 11:08 APTT 27 SECONDS (21-34) 11/13/16 11:08 - Head Exam Head Exam: ATRAUMATIC - Eye Exam Eye Exam: Normal appearance - ENT Exam ENT Exam: Mucous Membranes Dry - Respiratory Exam Respiratory Exam: NORMAL BREATHING PATTERN - Cardiovascular Exam Cardiovascular Exam: +S1, +S2 - GI/Abdominal Exam GI & Abdominal Exam: Normal Bowel Sounds - Extremities Exam Extremities Exam: Normal Inspection Assessment and Plan (1) Anemia Assessment & Plan: chronic disease Status: Acute (2) Bladder cancer Assessment & Plan: stage IV by imaging supportive care Status: Acute
[2016-11-19] MEDS ORDERED: Oxycodone/Acetaminophen 5/325 mg Tab PO STA (19:42)
[2016-11-20] MEDS: Saccharomyces Boulardi 250 mg Cap PO SCH ×2 (10:17→18:29)
[2016-11-20] MEDS: Pantoprazole 40 mg EC Tab PO SCH (10:18)
--- NOTE | 2016-11-20 10:22 | CP.PCM.PN ---
Subjective - Date & Time of Evaluation Date of Evaluation: 11/20/16 Time of Evaluation: 10:16 - Subjective Subjective: The patient was seen and examined at bedside. He states that he slept much better last night, mainly due to pain control. Although the pain is still present, it has improved and he denies any effect of the morphine on his mental clarity. He states that his mobility has improved slightly as he can transfer to his bedside toilet, however, this tends to tire him out. He adds that he has no appetite and his family states he has not eaten solid food x 2 days. He has been drinking Boost shakes but states that he feels like he is regurgitating them. He states he passed 2 ping pong sized stools which was followed by loose stool. The patient reports fever/chills, nausea, vomiting x2, fatigue, night sweats, cough, sputum production, indigestion, and abdominal pain. The patient denies headache, confusion, chest pain, palpitations, shortness of breath, diarrhea, constipation, hematochezia, urgency, dysuria, and hematuria. Objective - Vital Signs/Intake and Output Vital Signs (last 24 hours): Temp Pulse Resp BP Pulse Ox 98.2 F 83 20 143/76 99 11/20/16 08:21 11/20/16 08:21 11/20/16 08:21 11/20/16 08:21 11/20/16 08:21 Intake and Output: 11/20/16 11/20/16 06:59 18:59 Intake Total 400 Output Total 500 Balance -100 - Medications Medications: Current Medications Acetaminophen (Tylenol 325mg Tab) 650 mg PO Q6 PRN PRN Reason: Fever >100.4 F, pain Last Admin: 11/20/16 04:20 Dose: 650 mg Docusate Sodium (Colace) 100 mg PO TID [facility] Last Admin: 11/19/16 17:47 Dose: 100 mg Gabapentin (Neurontin) 300 mg PO TID [facility] Last Admin: 11/19/16 17:47 Dose: 300 mg Imipenem/Cilastatin Sodium 500 (mg/ Sodium Chloride) 100 mls @ 100 mls/hr IVPB Q8H [facility] Last Admin: 11/20/16 06:02 Dose: 100 mls/hr Lactulose (Enulose) 20 gm PO HS [facility] Last Admin: 11/19/16 22:13 Dose: Not Given Megestrol Acetate (Megace) 40 mg PO DAILY [facility] Last Admin: 11/19/16 10:52 Dose: Not Given Ondansetron HCl (Zofran Inj) 4 mg IVP Q6 PRN PRN Reason: Nausea/Vomiting Last Admin: 11/20/16 08:29 Dose: 4 mg Pantoprazole Sodium (Protonix Ec Tab) 40 mg PO DAILY [facility] Last Admin: 11/19/16 10:52 Dose: Not Given Saccharomyces Boulardii (Florastor) 250 mg PO BID [facility] Last Admin: 11/19/16 17:45 Dose: 250 mg Tramadol HCl (Ultram) 50 mg PO TID [facility] Last Admin: 11/20/16 10:14 Dose: Not Given - Labs Labs: 11/19/16 07:07 11/19/16 07:07 PT 15.8 SECONDS (9.7-12.2) H 11/13/16 11:08 INR 1.4 11/13/16 11:08 APTT 27 SECONDS (21-34) 11/13/16 11:08 - Constitutional Appears: Non-toxic, Chronically Ill - Head Exam Head Exam: ATRAUMATIC, NORMAL INSPECTION, NORMOCEPHALIC - Eye Exam Eye Exam: EOMI, Normal appearance, PERRL - ENT Exam ENT Exam: Mucous Membranes Moist - Respiratory Exam Respiratory Exam: Clear to Ausculation Bilateral, NORMAL BREATHING PATTERN. absent: Rales, Rhonchi, Wheezes - Cardiovascular Exam Cardiovascular Exam: +S1, +S2. absent: Bradycardia, Tachycardia - GI/Abdominal Exam GI & Abdominal Exam: Soft, Tenderness - Extremities Exam Extremities Exam: Normal Inspection, Tenderness. absent: Pedal Edema - Neurological Exam Neurological Exam: Alert, Awake, Oriented x3 - Psychiatric Exam Psychiatric exam: Depressed. absent: Normal Affect, Normal Mood - Skin Skin Exam: Intact, Normal Color Assessment and Plan - Assessment and Plan (Free Text) Assessment: Bilateral Lower extremity and back Pain likely secondary to metastatic disease Patient emotional regarding his condition preventing him from being "functional " Chest/Abd/Pelvis CT with po contrast (11/12/16): Stable appearing lobular pleural densities of both lung bases. Small nodules right lower lung base unchanged. Suspect new metastatic lesion within the right lobe liver. Hepatomegaly. Small cyst caudate lobe felt to be present. Splenomegaly. Sclerotic metastatic deposits within the pelvis sacrum of both hips, L2 segment and T7 segments. Status post cystectomy and prostatectomy with a right-sided ileal conduit and ileostomy right lower quadrant of the abdomen. Morphine 1 mg IVP once given for severe leg pain. Improved. Will have PRN order in place for severe pain. Continue Tramadol 50 mg po TID and Gabapentin 300 mg po TID Regular diet Normal Saline IV @100cc Zofran 4mg IVP Q6h PRN for nausea Venous dopplers negative Pain management on consult-->help appreciated Palliative Care Consult, Nellie Griffith, help appreciated. Per palliative care consult, patient wishes to remain full code. PT/OT 04/2016 PET Scan: revealed enlarged lymph nodes in lower abdomen left of aortic bifurcation demonstrates increased FG uptake and multiple osseous metastasis including T7, L2, pelvic bones bilaterally, and bilateral femurs (see full report) 02/2016 CT chest/abd/pelvis: No evidence of thoracic metastasis. Stable pleural plaques bilaterally. Several new mildly enlarged retroperitoneal lymph nodes are noted. Status post left nephrectomy and cystectomy with formation of ileal conduit (see full report) Abdominal Pain + constipation x 8 days - family states patient had 3 small BMs Abdomen X-Ray Flat plate: Dilated small and large bowel loops - distal colonic obstruction versus ileus. Follow-up recommended no upright views available to assess for any subdiaphragmatic free air Patient refused NG tube placement overnight but now agreeable. Patient currently NPO. General surgery, Dr. Arita, consulted. Help appreciated. Lactulose given. Pt had BM today. Nursing instructed to give chamomile tea enema if constipation persists Abdominal flat plate ordered Symptomatic Anemia Improving Continue to monitor H&H and plan to transfuse if hemoglobin continues to decrease Hemoglobin improved to 9.0 from 8.8 s/p transfusion Type and Cross Transfused pRBCs Heme/Onc consulted, Dr. 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 Billy Del Toro, help appreciated. Patient emotional regarding thought of chemotherapy. Urology consult: Dr. Richmond on board, help appreciated. Palliative Care Consult, Nellie Griffith, help appreciated Pyuria Afebrile f/u repeat urinalysis and culture Urine Culture (11/16/16): Enterococcus Faecalis Urine Culture (11/13/16): Klebsiella pneumoniae Discontinue Rocephin IV (started on 11/14/16) as patient is still spiking fever. Start Primaxin 500 mg IVPB q6h (11/16/16). Florastor 250mg PO BID Unstable Gait Physical therapist working with patient. Notes bed mobility, ADLs, transfers limited by constant pain. Gait continues to be impaired. Prophylactic Measures Protonix 40 mg IVP daily Zofran 4 mg IVP Q6H PRN Tylenol 650 mg PO Q6H PRN Vanilla Boost TID for dietary supplement PT/OT [facility] referral
[2016-11-20 14:41] LABS: BASO # 0.1 K/uL (0.0-0.2); BASO % 0.6 % (0.0-2.0); EOS % 0.4 % (0.0-4.0); HEMATOCRIT 29.4 % (35.0-51.0); LYMPH # 0.8 K/uL (1.0-4.3); LYMPH % 6.3 % (20.0-40.0); MEAN CELL VOLUME 81.1 fL (80.0-94.0); MEAN CORPUSCULAR HEMOGLOBIN 25.7 pg (27.0-31.0); MEAN CORPUSCULAR HGB CONC 31.6 g/dL (33.0-37.0); MEAN PLATELET VOLUME 7.9 fL (7.2-11.7); MONO # 0.6 K/uL (0.0-0.8); MONO % 4.5 % (0.0-10.0); PLATELET COUNT 244 K/uL (130-400); RED CELL DISTRIBUTION WIDTH 16.3 % (11.5-14.5); WHITE BLOOD COUNT 13.4 K/uL (4.8-10.8)
[2016-11-20 14:52] LABS: CHLORIDE 97 mmol/L (98-107); SODIUM 133 mmol/L (132-148)
[2016-11-20 14:53] LABS: POTASSIUM 3.9 mmol/L (3.6-5.2)
[2016-11-20 14:55] LABS: ALKALINE PHOSPHATASE 133 U/L (38-126); AST/SGOT 20 U/L (17-59); BILIRUBIN,TOTAL 0.7 mg/dL (0.2-1.3); BLOOD UREA NITROGEN 12 mg/dL (9-20); CARBON DIOXIDE 28 mmol/L (22-30); GFR AFRICAN-AMERICAN > 60; GLUCOSE,RANDOM 98 mg/dL (75-110); TOTAL PROTEIN 6.7 g/dL (6.3-8.3)
[2016-11-20 14:56] LABS: ALT/SGPT 23 U/L (21-72); CALCIUM 9.1 mg/dl (8.6-10.4); MAGNESIUM 1.8 mg/dL (1.6-2.3)
[2016-11-20 14:57] LABS: ALB/GLOB RATIO 0.8 (1.0-2.1)
[2016-11-20 15:33] LABS: RBC URINE 2 /hpf (0-3); URINE BILIRUBIN NEGATIVE (NEGATIVE); URINE BLOOD NEGATIVE (NEGATIVE); URINE COLOR Yellow (YELLOW); URINE GLUCOSE (UA) 1+ mg/dL (Normal); URINE KETONE 1+ mg/dL (NEGATIVE); URINE LEUKOCYTE ESTERASE TRACE Leu/uL (Negative); URINE PROTEIN NEGATIVE (NEGATIVE); URINE UROBILINOGEN NORMAL mg/dL (0.2-1.0); WBC URINE 10 /hpf (0-5)
[2016-11-20 17:24] LABS: BASOPHIL 1 % (0-2); NEUTROPHIL 93 % (50-75); TOTAL CELLS COUNTED 100
--- NOTE | 2016-11-20 21:02 | CP.PCM.CON ---
History of Present Illness - History of Present Illness History of Present Illness: SURGERY CONSULT NOTE FOR DR. GARBER 71M presents to [facility] for weakness. Surgery consulted for possible bowel obstruction. Patient states he has been having small bowel movements but had two large solid feces pass two days ago. He states he currently does not have any pain currently. He denies nausea/ vomiting/ fevers/ chills. PMH: Bladder Ca with mets PSH: Cystectomy, Prostatectomy, ileal conduit Social: Social: quit smoking 41 years ago - smoked 1 pack/day for 20 years, denies ETOH/illicit drug use, ambulate with full assistance, needs help with ADLs, lives with family Allergies: NKDA Past Patient History - Infectious Disease Hx of Infectious Diseases: None - Past Medical History & Family History Past Medical History?: Yes - Past Social History Smoking Status: Never Smoked - CARDIAC Hx Cardiac Disorders: No - PULMONARY Hx Respiratory Disorders: No - NEUROLOGICAL Hx Neurological Disorder: No - HEENT Hx HEENT Problems: No - RENAL Hx Chronic Kidney Disease: Yes - ENDOCRINE/METABOLIC Hx Endocrine Disorders: No - HEMATOLOGICAL/ONCOLOGICAL Hx Blood Disorders: No - INTEGUMENTARY Hx Dermatological Problems: No - MUSCULOSKELETAL/RHEUMATOLOGICAL Hx Arthritis: Yes (BACK AND B/L HIP PAIN R>L) - GASTROINTESTINAL Hx Gastrointestinal Disorders: No - GENITOURINARY/GYNECOLOGICAL Hx Genitourinary Disorders: Yes Hx Hematuria: Yes - PSYCHIATRIC Hx Substance Use: No - SURGICAL HISTORY Hx Surgeries: Yes (CYSTO STENT INSERTION) - ANESTHESIA Hx Anesthesia: Yes Meds Home Medications: Home Medication List Medication Instructions Recorded Confirmed Type Ibuprofen [Motrin] 600 mg PO TID #15 tab 11/12/16 Rx traMADol/Acetaminophen [Ultracet 1 tab PO TID PRN #20 tab 11/12/16 Rx 37.5/325 mg] Allergies/Adverse Reactions: Allergies Allergy/AdvReac Type Severity Reaction Status Date / Time No Known Allergies Allergy Verified 11/12/16 17:02 - Medications Medications: Current Medications Acetaminophen (Tylenol 325mg Tab) 650 mg PO Q6 PRN PRN Reason: Fever >100.4 F, pain Last Admin: 11/20/16 04:20 Dose: 650 mg Docusate Sodium (Colace) 100 mg PO TID [facility] Last Admin: 11/20/16 18:29 Dose: Not Given Gabapentin (Neurontin) 300 mg PO TID [facility] Last Admin: 11/20/16 18:29 Dose: Not Given Imipenem/Cilastatin Sodium 500 (mg/ Sodium Chloride) 100 mls @ 100 mls/hr IVPB Q8H [facility] Last Admin: 11/20/16 14:19 Dose: 100 mls/hr Lactulose (Enulose) 20 gm PO HS [facility] Last Admin: 11/19/16 22:13 Dose: Not Given Megestrol Acetate (Megace) 40 mg PO DAILY [facility] Last Admin: 11/20/16 10:17 Dose: 40 mg Morphine Sulfate (Morphine) 1 mg IVP Q4 PRN PRN Reason: Pain, severe (8-10) Ondansetron HCl (Zofran Inj) 4 mg IVP Q6 PRN PRN Reason: Nausea/Vomiting Last Admin: 11/20/16 18:49 Dose: 4 mg Pantoprazole Sodium (Protonix Ec Tab) 40 mg PO DAILY [facility] Last Admin: 11/20/16 10:18 Dose: 40 mg Saccharomyces Boulardii (Florastor) 250 mg PO BID [facility] Last Admin: 11/20/16 18:29 Dose: Not Given Tramadol HCl (Ultram) 50 mg PO TID [facility] Last Admin: 11/20/16 18:29 Dose: Not Given Physical Exam - Constitutional Appears: Non-toxic, No Acute Distress - Head Exam Head Exam: ATRAUMATIC - ENT Exam ENT Exam: Mucous Membranes Moist - Respiratory Exam Respiratory Exam: Clear to Auscultation Bilateral, NORMAL BREATHING PATTERN - Cardiovascular Exam Cardiovascular Exam: REGULAR RHYTHM, +S1, +S2 - GI/Abdominal Exam GI & Abdominal Exam: Soft. absent: Distended, Firm, Guarding, Rebound, Rigid, Tenderness - Rectal Exam Rectal Exam: Hemorrhoids (one hemorrhoid, mildly tender to touch) - Extremities Exam Extremities exam: Negative for: pedal edema, tenderness - Neurological Exam Neurological exam: Alert, Oriented x3 - Psychiatric Exam Psychiatric exam: Normal Affect, Normal Mood - Skin Skin Exam: Dry, Intact, Normal Color, Warm Results - Vital Signs Recent Vital Signs: Last Vital Signs Temp 98.1 F 11/20/16 15:00 Pulse 80 11/20/16 15:00 Resp 20 11/20/16 15:00 BP 122/63 11/20/16 15:00 Pulse Ox 96 11/20/16 15:00 - Labs Result Diagrams: 11/20/16 14:36 11/20/16 14:36 Labs: Laboratory Results - last 24 hr 11/19/16 11/20/16 11/20/16 21:25 11:39 14:36 WBC 13.4 H RBC 3.63 L Hgb 9.3 L Hct 29.4 L MCV 81.1 MCH 25.7 L MCHC 31.6 L RDW 16.3 H Plt Count 244 MPV 7.9 Neut % (Auto) 88.2 H Lymph % (Auto) 6.3 L Mitchell % (Auto) 4.5 Eos % (Auto) 0.4 Baso % (Auto) 0.6 Neut # 11.8 H Lymph # 0.8 L Mitchell # 0.6 Eos # 0.0 Baso # 0.1 Neutrophils % (Manual) 93 H Band Neutrophils % 1 Lymphocytes % (Manual) 5 L Monocytes % (Manual) TEST NOT PERFORMED Basophils % (Manual) 1 Platelet Estimate Normal Microcytosis (manual) Slight Sodium Potassium Chloride Carbon Dioxide Anion Gap BUN Creatinine Est GFR ( Amer) Est GFR (Non-Af Amer) POC Glucose (mg/dL) 97 106 Random Glucose Calcium Magnesium Total Bilirubin AST ALT Alkaline Phosphatase Total Protein Albumin Globulin Albumin/Globulin Ratio Urine Color Urine Clarity Urine pH Ur Specific [place] Urine Protein Urine Glucose (UA) Urine Ketones Urine Blood Urine Nitrate Urine Bilirubin Urine Urobilinogen Ur Leukocyte Esterase Urine WBC (Auto) Urine RBC (Auto) 11/20/16 11/20/16 14:36 15:21 WBC RBC Hgb Hct MCV MCH MCHC RDW Plt Count MPV Neut % (Auto) Lymph % (Auto) Mitchell % (Auto) Eos % (Auto) Baso % (Auto) Neut # Lymph # Mitchell # Eos # Baso # Neutrophils % (Manual) Band Neutrophils % Lymphocytes % (Manual) Monocytes % (Manual) Basophils % (Manual) Platelet Estimate Microcytosis (manual) Sodium 133 Potassium 3.9 Chloride 97 L Carbon Dioxide 28 Anion Gap 12 BUN 12 Creatinine 0.7 L Est GFR ( Amer) > 60 Est GFR (Non-Af Amer) > 60 POC Glucose (mg/dL) Random Glucose 98 Calcium 9.1 Magnesium 1.8 Total Bilirubin 0.7 AST 20 ALT 23 Alkaline Phosphatase 133 H Total Protein 6.7 Albumin 2.9 L Globulin 3.8 Albumin/Globulin Ratio 0.8 L Urine Color Yellow Urine Clarity Hazy Urine pH 6.0 Ur Specific [place] 1.014 Urine Protein Negative Urine Glucose (UA) 1+ H Urine Ketones 1+ H Urine Blood Negative Urine Nitrate Negative Urine Bilirubin Negative Urine Urobilinogen Normal Ur Leukocyte Esterase Trace Urine WBC (Auto) 10 H Urine RBC (Auto) 2 Assessment & Plan - Assessment and Plan (Free Text) Assessment: 71M with diffusely distended bowel Abdominal x-ray: Dilated small/large bowel loops Plan: - ADAT - serial abdominal exams - no surgical intervention - likely not SBO Discussed with Dr Juan J Nye, PGY1
[2016-11-21 08:08] LABS: BASO # 0.1 K/uL (0.0-0.2); BASO % 0.6 % (0.0-2.0); EOS % 0.3 % (0.0-4.0); HEMATOCRIT 28.7 % (35.0-51.0); LYMPH # 1.4 K/uL (1.0-4.3); LYMPH % 10.7 % (20.0-40.0); MEAN CELL VOLUME 81.6 fL (80.0-94.0); MEAN CORPUSCULAR HEMOGLOBIN 25.6 pg (27.0-31.0); MEAN CORPUSCULAR HGB CONC 31.4 g/dL (33.0-37.0); MEAN PLATELET VOLUME 8.5 fL (7.2-11.7); MONO # 0.8 K/uL (0.0-0.8); MONO % 5.8 % (0.0-10.0); NRBC % 0.1 % (0.0-2.0); RED CELL DISTRIBUTION WIDTH 15.9 % (11.5-14.5); WHITE BLOOD COUNT 13.1 K/uL (4.8-10.8)
[2016-11-21 08:14] LABS: CHLORIDE 102 mmol/L (98-107); POTASSIUM 3.7 mmol/L (3.6-5.2); SODIUM 137 mmol/L (132-148)
[2016-11-21 08:16] LABS: AST/SGOT 28 U/L (17-59); BILIRUBIN,TOTAL 0.8 mg/dL (0.2-1.3); CARBON DIOXIDE 27 mmol/L (22-30); GFR AFRICAN-AMERICAN > 60
[2016-11-21 08:17] LABS: ALB/GLOB RATIO 0.9 (1.0-2.1); ALKALINE PHOSPHATASE 153 U/L (38-126); ALT/SGPT 20 U/L (21-72); BLOOD UREA NITROGEN 13 mg/dL (9-20); CALCIUM 9.2 mg/dl (8.6-10.4); GLUCOSE,RANDOM 92 mg/dL (75-110); MAGNESIUM 1.9 mg/dL (1.6-2.3); TOTAL PROTEIN 6.4 g/dL (6.3-8.3)
--- NOTE | 2016-11-21 08:49 | RAD ---
Chest x-ray single frontal view History: NG tube placement. Comparison: None available. Findings: NG tube extending into the stomach. Mild venous congestion. Bilateral hilar prominence. Heart size within normal limits. Multiple dilated loops of small bowel within the upper abdomen. Impression NG tube extending into the stomach.
--- NOTE | 2016-11-21 09:06 | CP.PCM.PN ---
Subjective - Date & Time of Evaluation Date of Evaluation: 11/21/16 Time of Evaluation: 09:04 - Subjective Subjective: Gen Sx: Dr Arita Pt S&E. CRISTOBAL. NGT has been removed. Passing flatus and had large BM this morning. States he is hungry. Has intermittent nausea. Denies abdominal pain. Denies emesis, fevers, chills, sob. Objective - Vital Signs/Intake and Output Vital Signs (last 24 hours): Temp Pulse Resp BP Pulse Ox 98.1 F 84 20 141/81 96 11/21/16 08:32 11/21/16 08:32 11/21/16 08:32 11/21/16 08:32 11/21/16 08:32 Intake and Output: 11/21/16 11/21/16 06:59 18:59 Intake Total 250 Output Total 1200 Balance -950 - Medications Medications: Current Medications Acetaminophen (Tylenol 325mg Tab) 650 mg PO Q6 PRN PRN Reason: Fever >100.4 F, pain Last Admin: 11/20/16 04:20 Dose: 650 mg Docusate Sodium (Colace) 100 mg PO TID [facility] Last Admin: 11/20/16 18:29 Dose: Not Given Gabapentin (Neurontin) 300 mg PO TID [facility] Last Admin: 11/20/16 18:29 Dose: Not Given Imipenem/Cilastatin Sodium 500 (mg/ Sodium Chloride) 100 mls @ 100 mls/hr IVPB Q8H [facility] Last Admin: 11/21/16 06:31 Dose: 100 mls/hr Lactulose (Enulose) 20 gm PO [facility] Last Admin: 11/20/16 22:30 Dose: 20 gm Megestrol Acetate (Megace) 40 mg PO DAILY [facility] Last Admin: 11/20/16 10:17 Dose: 40 mg Morphine Sulfate (Morphine) 1 mg IVP Q4 PRN PRN Reason: Pain, severe (8-10) Last Admin: 11/21/16 08:30 Dose: 1 mg Ondansetron HCl (Zofran Inj) 4 mg IVP Q6 PRN PRN Reason: Nausea/Vomiting Last Admin: 11/20/16 18:49 Dose: 4 mg Pantoprazole Sodium (Protonix Ec Tab) 40 mg PO DAILY [facility] Last Admin: 11/20/16 10:18 Dose: 40 mg Saccharomyces Boulardii (Florastor) 250 mg PO BID [facility] Last Admin: 11/20/16 18:29 Dose: Not Given Tramadol HCl (Ultram) 50 mg PO TID [facility] Last Admin: 11/20/16 18:29 Dose: Not Given - Labs Labs: 11/21/16 07:49 11/21/16 07:49 PT 15.8 SECONDS (9.7-12.2) H 11/13/16 11:08 INR 1.4 11/13/16 11:08 APTT 27 SECONDS (21-34) 11/13/16 11:08 - Constitutional Appears: Non-toxic, No Acute Distress - Respiratory Exam Respiratory Exam: absent: Accessory Muscle Use, Respiratory Distress - GI/Abdominal Exam GI & Abdominal Exam: Soft. absent: Distended, Firm, Guarding, Tenderness, Hernia, Rebound - Neurological Exam Neurological Exam: Alert, Awake, Oriented x3 - Psychiatric Exam Psychiatric exam: Normal Affect, Normal Mood Assessment and Plan - Assessment and Plan (Free Text) Assessment: 71M w/ SBO; resolved Plan: will start on CLD ADAT further recs per primary and urology will d/w Dr Juan J Hughes, DO, PGY2
[2016-11-21] MEDS: Pantoprazole 40 mg EC Tab PO SCH (10:01)
[2016-11-21] MEDS: Saccharomyces Boulardi 250 mg Cap PO SCH ×2 (10:01→17:54)
--- NOTE | 2016-11-21 18:38 | CP.PCM.PN ---
<Doug Manzo - Last Filed: 11/21/16 18:44> Subjective - Date & Time of Evaluation Date of Evaluation: 11/21/16 Time of Evaluation: 08:13 - Subjective Subjective: Pt seen and examined. Pt reports that his legs are feeling weak. Pt reports that he has minimal appetite. Pt reports that he had a liquid bowel movement. Pt denies fever, chills, chest pain, shortness of breath, nausea, and vomiting. Objective - Vital Signs/Intake and Output Vital Signs (last 24 hours): Temp Pulse Resp BP Pulse Ox 98.7 F 76 20 126/64 96 11/21/16 15:00 11/21/16 15:00 11/21/16 15:00 11/21/16 15:00 11/21/16 15:00 Intake and Output: 11/21/16 11/21/16 06:59 18:59 Intake Total 250 550 Output Total 1200 Balance -950 550 - Medications Medications: Current Medications Acetaminophen (Tylenol 325mg Tab) 650 mg PO Q6 PRN PRN Reason: Fever >100.4 F, pain Last Admin: 11/20/16 04:20 Dose: 650 mg Docusate Sodium (Colace) 100 mg PO TID [facility] Last Admin: 11/21/16 17:54 Dose: Not Given Gabapentin (Neurontin) 300 mg PO TID [facility] Last Admin: 11/21/16 17:55 Dose: 300 mg Imipenem/Cilastatin Sodium 500 (mg/ Sodium Chloride) 100 mls @ 100 mls/hr IVPB Q8H [facility] Last Admin: 11/21/16 14:26 Dose: 100 mls/hr Lactulose (Enulose) 20 gm PO HS [facility] Last Admin: 11/20/16 22:30 Dose: 20 gm Megestrol Acetate (Megace) 40 mg PO DAILY [facility] Last Admin: 11/21/16 10:02 Dose: 40 mg Morphine Sulfate (Morphine) 1 mg IVP Q4 PRN PRN Reason: Pain, severe (8-10) Last Admin: 11/21/16 08:30 Dose: 1 mg Ondansetron HCl (Zofran Inj) 4 mg IVP Q6 PRN PRN Reason: Nausea/Vomiting Last Admin: 11/20/16 18:49 Dose: 4 mg Pantoprazole Sodium (Protonix Ec Tab) 40 mg PO DAILY [facility] Last Admin: 11/21/16 10:01 Dose: 40 mg Saccharomyces Boulardii (Florastor) 250 mg PO BID [facility] Last Admin: 11/21/16 17:54 Dose: 250 mg Tramadol HCl (Ultram) 50 mg PO TID [facility] Last Admin: 11/21/16 17:55 Dose: 50 mg - Labs Labs: 11/21/16 07:49 11/21/16 07:49 PT 15.8 SECONDS (9.7-12.2) H 11/13/16 11:08 INR 1.4 11/13/16 11:08 APTT 27 SECONDS (21-34) 11/13/16 11:08 - Constitutional Appears: Toxic, Cachectic - Head Exam Head Exam: ATRAUMATIC, NORMOCEPHALIC - Eye Exam Eye Exam: EOMI, PERRL - ENT Exam ENT Exam: Mucous Membranes Moist. absent: Mucous Membranes Dry - Respiratory Exam Respiratory Exam: Clear to Ausculation Bilateral. absent: Rales, Rhonchi, Wheezes - Cardiovascular Exam Cardiovascular Exam: +S1, +S2. absent: Gallop, Rubs - GI/Abdominal Exam GI & Abdominal Exam: Soft. absent: Tenderness Additional comments: Nephrostomy tube in place - Extremities Exam Extremities Exam: Full ROM. absent: Pedal Edema - Neurological Exam Neurological Exam: Alert, Awake, Oriented x3 - Psychiatric Exam Psychiatric exam: Normal Affect, Normal Mood - Skin Skin Exam: Normal Color, Warm Assessment and Plan - Assessment and Plan (Free Text) Assessment: Bilateral Lower extremity and back Pain likely secondary to metastatic disease Patient emotional regarding his condition preventing him from being "functional " Chest/Abd/Pelvis CT with po contrast (11/12/16): Stable appearing lobular pleural densities of both lung bases. Small nodules right lower lung base unchanged. Suspect new metastatic lesion within the right lobe liver. Hepatomegaly. Small cyst caudate lobe felt to be present. Splenomegaly. Sclerotic metastatic deposits within the pelvis sacrum of both hips, L2 segment and T7 segments. Status post cystectomy and prostatectomy with a right-sided ileal conduit and ileostomy right lower quadrant of the abdomen. Morphine 1 mg IVP once given for severe leg pain. Improved. Will have PRN order in place for severe pain. Continue Tramadol 50 mg po TID and Gabapentin 300 mg po TID Regular diet Normal Saline IV @100cc Zofran 4mg IVP Q6h PRN for nausea Venous dopplers negative Pain management on consult-->help appreciated Palliative Care Consult, Nellie Griffith, help appreciated. Per palliative care consult, patient wishes to remain full code. PT/OT 04/2016 PET Scan: revealed enlarged lymph nodes in lower abdomen left of aortic bifurcation demonstrates increased FG uptake and multiple osseous metastasis including T7, L2, pelvic bones bilaterally, and bilateral femurs (see full report) 02/2016 CT chest/abd/pelvis: No evidence of thoracic metastasis. Stable pleural plaques bilaterally. Several new mildly enlarged retroperitoneal lymph nodes are noted. Status post left nephrectomy and cystectomy with formation of ileal conduit (see full report) Abdominal Pain + constipation x 8 days - family states patient had 3 small BMs Abdomen X-Ray Flat plate: Dilated small and large bowel loops - distal colonic obstruction versus ileus. Follow-up recommended no upright views available to assess for any subdiaphragmatic free air Patient refused NG tube placement overnight but now agreeable. Patient currently NPO. General surgery, Dr. Arita, consulted. Help appreciated. Lactulose given. Pt had BM today. Nursing instructed to give chamomile tea enema if constipation persists Abdominal flat plate ordered Diet advanced as per surgery, pt on clear liquids Symptomatic Anemia Improving Continue to monitor H&H and plan to transfuse if hemoglobin continues to decrease Hemoglobin improved to 9.0 from 8.8 s/p transfusion Type and Cross Transfused pRBCs Heme/Onc consulted, Dr. 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 Billy Del Toro, help appreciated. Patient emotional regarding thought of chemotherapy. Urology consult: Dr. Richmond on board, help appreciated. Palliative Care Consult, Nellie Griffith, help appreciated Pyuria Afebrile f/u repeat urinalysis and culture Urine Culture (11/16/16): Enterococcus Faecalis Urine Culture (11/13/16): Klebsiella pneumoniae Discontinue Rocephin IV (started on 11/14/16) as patient is still spiking fever. Start Primaxin 500 mg IVPB q6h (11/16/16). Florastor 250mg PO BID Unstable Gait Physical therapist working with patient. Notes bed mobility, ADLs, transfers limited by constant pain. Gait continues to be impaired. 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 <BillySamyAnton A - Last Filed: 11/21/16 21:41> Objective - Vital Signs/Intake and Output Vital Signs (last 24 hours): Temp Pulse Resp BP Pulse Ox 98.7 F 76 20 126/64 96 11/21/16 15:00 11/21/16 15:00 11/21/16 15:00 11/21/16 15:00 11/21/16 15:00 Intake and Output: 11/21/16 11/22/16 18:59 06:59 Intake Total 550 Balance 550 - Medications Medications: Current Medications Acetaminophen (Tylenol 325mg Tab) 650 mg PO Q6 PRN PRN Reason: Fever >100.4 F, pain Last Admin: 11/20/16 04:20 Dose: 650 mg Docusate Sodium (Colace) 100 mg PO TID [facility] Last Admin: 11/21/16 17:54 Dose: Not Given Gabapentin (Neurontin) 300 mg PO TID [facility] Last Admin: 11/21/16 17:55 Dose: 300 mg Imipenem/Cilastatin Sodium 500 (mg/ Sodium Chloride) 100 mls @ 100 mls/hr IVPB Q8H [facility] Last Admin: 11/21/16 14:26 Dose: 100 mls/hr Lactulose (Enulose) 20 gm PO [facility] Last Admin: 11/20/16 22:30 Dose: 20 gm Megestrol Acetate (Megace) 40 mg PO DAILY [facility] Last Admin: 11/21/16 10:02 Dose: 40 mg Morphine Sulfate (Morphine) 1 mg IVP Q4 PRN PRN Reason: Pain, severe (8-10) Last Admin: 11/21/16 08:30 Dose: 1 mg Ondansetron HCl (Zofran Inj) 4 mg IVP Q6 PRN PRN Reason: Nausea/Vomiting Last Admin: 11/21/16 20:45 Dose: 4 mg Pantoprazole Sodium (Protonix Ec Tab) 40 mg PO DAILY [facility] Last Admin: 11/21/16 10:01 Dose: 40 mg Saccharomyces Boulardii (Florastor) 250 mg PO BID [facility] Last Admin: 11/21/16 17:54 Dose: 250 mg Tramadol HCl (Ultram) 50 mg PO TID [facility] Last Admin: 11/21/16 17:55 Dose: 50 mg - Labs Labs: 11/21/16 07:49 11/21/16 07:49 PT 15.8 SECONDS (9.7-12.2) H 11/13/16 11:08 INR 1.4 11/13/16 11:08 APTT 27 SECONDS (21-34) 11/13/16 11:08 Attending/Attestation - Attestation I have personally seen and examined this patient.: Yes I have fully participated in the care of the patient.: Yes I have reviewed all pertinent clinical information, including history, physical exam and plan: Yes Notes (Text): 11/21/16 21:36 I saw and examined this patient and agree with the assessment and plan outlined by Dr Kessler. #. Bilateral leg weakness secondary to the malignancy - PT/OT #. Metastatic Bladder Cancer - Dr Del Toro oncology and Dr Richmond Urologist on consult #. SBO has resolved Anton Cervantes MD
--- NOTE | 2016-11-21 20:06 | CP.PCM.PN ---
Subjective - Date & Time of Evaluation Date of Evaluation: 11/21/16 Time of Evaluation: 18:00 - Subjective Subjective: Having bowel movements, feels weak Objective - Vital Signs/Intake and Output Vital Signs (last 24 hours): Temp Pulse Resp BP Pulse Ox 98.7 F 76 20 126/64 96 11/21/16 15:00 11/21/16 15:00 11/21/16 15:00 11/21/16 15:00 11/21/16 15:00 Intake and Output: 11/21/16 11/22/16 18:59 06:59 Intake Total 550 Balance 550 - Medications Medications: Current Medications Acetaminophen (Tylenol 325mg Tab) 650 mg PO Q6 PRN PRN Reason: Fever >100.4 F, pain Last Admin: 11/20/16 04:20 Dose: 650 mg Docusate Sodium (Colace) 100 mg PO TID [facility] Last Admin: 11/21/16 17:54 Dose: Not Given Gabapentin (Neurontin) 300 mg PO TID [facility] Last Admin: 11/21/16 17:55 Dose: 300 mg Imipenem/Cilastatin Sodium 500 (mg/ Sodium Chloride) 100 mls @ 100 mls/hr IVPB Q8H [facility] Last Admin: 11/21/16 14:26 Dose: 100 mls/hr Lactulose (Enulose) 20 gm PO HS [facility] Last Admin: 11/20/16 22:30 Dose: 20 gm Megestrol Acetate (Megace) 40 mg PO DAILY [facility] Last Admin: 11/21/16 10:02 Dose: 40 mg Morphine Sulfate (Morphine) 1 mg IVP Q4 PRN PRN Reason: Pain, severe (8-10) Last Admin: 11/21/16 08:30 Dose: 1 mg Ondansetron HCl (Zofran Inj) 4 mg IVP Q6 PRN PRN Reason: Nausea/Vomiting Last Admin: 11/20/16 18:49 Dose: 4 mg Pantoprazole Sodium (Protonix Ec Tab) 40 mg PO DAILY [facility] Last Admin: 11/21/16 10:01 Dose: 40 mg Saccharomyces Boulardii (Florastor) 250 mg PO BID [facility] Last Admin: 11/21/16 17:54 Dose: 250 mg Tramadol HCl (Ultram) 50 mg PO TID [facility] Last Admin: 11/21/16 17:55 Dose: 50 mg - Labs Labs: 11/21/16 07:49 11/21/16 07:49 PT 15.8 SECONDS (9.7-12.2) H 11/13/16 11:08 INR 1.4 11/13/16 11:08 APTT 27 SECONDS (21-34) 11/13/16 11:08 - Head Exam Head Exam: ATRAUMATIC - Eye Exam Eye Exam: Normal appearance - ENT Exam ENT Exam: Mucous Membranes Dry - Respiratory Exam Respiratory Exam: NORMAL BREATHING PATTERN - Cardiovascular Exam Cardiovascular Exam: +S1, +S2 - GI/Abdominal Exam GI & Abdominal Exam: Normal Bowel Sounds - Extremities Exam Extremities Exam: Normal Inspection Assessment and Plan (1) Anemia Assessment & Plan: chronic disease Status: Acute (2) Bladder cancer Assessment & Plan: stage IV bone mets supportive care Status: Acute
[2016-11-22 07:32] LABS: BASO # 0.1 K/uL (0.0-0.2); BASO % 0.5 % (0.0-2.0); EOS # 0.1 K/uL (0.0-0.7); EOS % 0.5 % (0.0-4.0); HEMATOCRIT 28.3 % (35.0-51.0); LYMPH # 1.1 K/uL (1.0-4.3); LYMPH % 7.6 % (20.0-40.0); MEAN CELL VOLUME 81.8 fL (80.0-94.0); MEAN CORPUSCULAR HEMOGLOBIN 25.6 pg (27.0-31.0); MEAN CORPUSCULAR HGB CONC 31.3 g/dL (33.0-37.0); MEAN PLATELET VOLUME 8.4 fL (7.2-11.7); MONO # 0.6 K/uL (0.0-0.8); MONO % 4.2 % (0.0-10.0); PLATELET COUNT 265 K/uL (130-400); RED CELL DISTRIBUTION WIDTH 16.1 % (11.5-14.5); WHITE BLOOD COUNT 13.9 K/uL (4.8-10.8)
[2016-11-22 07:35] LABS: CHLORIDE 101 mmol/L (98-107)
--- NOTE | 2016-11-22 07:35 | CP.PCM.PN ---
Subjective - Date & Time of Evaluation Date of Evaluation: 11/22/16 Time of Evaluation: 07:32 - Subjective Subjective: Gen Sx: Dr Arita Pt S&E. NAEO. Continues to have liquid BMs. Minimal nausea, denies vomiting. Passing flatus. Continues to have LE pain. Pt main complaint is consistent pain in rectum. Prolapsed hemorrhoid identified. Pt states pain worse with defecation and he finds streaks of blood on tissue paper. Pt would like to have it removed if possible. Objective - Vital Signs/Intake and Output Vital Signs (last 24 hours): Temp Pulse Resp BP Pulse Ox 98.9 F 77 20 120/63 97 11/22/16 00:00 11/22/16 00:00 11/22/16 00:00 11/22/16 00:00 11/22/16 00:00 Intake and Output: 11/22/16 11/22/16 06:59 18:59 Intake Total 400 Output Total 850 Balance -450 - Medications Medications: Current Medications Acetaminophen (Tylenol 325mg Tab) 650 mg PO Q6 PRN PRN Reason: Fever >100.4 F, pain Last Admin: 11/20/16 04:20 Dose: 650 mg Docusate Sodium (Colace) 100 mg PO TID [facility] Last Admin: 11/21/16 17:54 Dose: Not Given Gabapentin (Neurontin) 300 mg PO TID [facility] Last Admin: 11/21/16 17:55 Dose: 300 mg Imipenem/Cilastatin Sodium 500 (mg/ Sodium Chloride) 100 mls @ 100 mls/hr IVPB Q8H [facility] Last Admin: 11/22/16 06:08 Dose: 100 mls/hr Lactulose (Enulose) 20 gm PO HS [facility] Last Admin: 11/21/16 22:17 Dose: Not Given Megestrol Acetate (Megace) 40 mg PO DAILY [facility] Last Admin: 11/21/16 10:02 Dose: 40 mg Morphine Sulfate (Morphine) 1 mg IVP Q4 PRN PRN Reason: Pain, severe (8-10) Last Admin: 11/21/16 22:26 Dose: 1 mg Ondansetron HCl (Zofran Inj) 4 mg IVP Q6 PRN PRN Reason: Nausea/Vomiting Last Admin: 11/21/16 20:45 Dose: 4 mg Pantoprazole Sodium (Protonix Ec Tab) 40 mg PO DAILY [facility] Last Admin: 11/21/16 10:01 Dose: 40 mg Saccharomyces Boulardii (Florastor) 250 mg PO BID [facility] Last Admin: 11/21/16 17:54 Dose: 250 mg Tramadol HCl (Ultram) 50 mg PO TID [facility] Last Admin: 11/21/16 17:55 Dose: 50 mg - Labs Labs: 11/21/16 07:49 11/21/16 07:49 PT 15.8 SECONDS (9.7-12.2) H 11/13/16 11:08 INR 1.4 11/13/16 11:08 APTT 27 SECONDS (21-34) 11/13/16 11:08 - Constitutional Appears: Non-toxic, No Acute Distress - Head Exam Head Exam: NORMOCEPHALIC - ENT Exam ENT Exam: Mucous Membranes Moist - Respiratory Exam Respiratory Exam: absent: Accessory Muscle Use, Respiratory Distress - Cardiovascular Exam Cardiovascular Exam: REGULAR RHYTHM - GI/Abdominal Exam GI & Abdominal Exam: Soft. absent: Distended, Tenderness Additional comments: ileal conduit draining appropriately - Rectal Exam Rectal Exam: Hemorrhoids Additional comments: prolapsed hemorrhoid, 4th degree, non-thrombosed - Extremities Exam Extremities Exam: absent: Calf Tenderness, Pedal Edema - Neurological Exam Neurological Exam: Alert, Awake, Oriented x3 - Psychiatric Exam Psychiatric exam: Normal Affect, Normal Mood - Skin Skin Exam: Normal Color, Warm Assessment and Plan - Assessment and Plan (Free Text) Assessment: 71M with history of bladder Ca, s/p cystectomy; sx consulted for sbo; RESOLVED now with 4th degree hemorrhoid Plan: pt having increased pain with defecation, likely 2/2 hemorrhoid which can be facilitating obstructive symptoms stool softeners adv to reg soft diet sitz baths will d/w attending possible hemorrhoidectomy on this admission Jayme Hughes DO, PGY2
[2016-11-22 07:36] LABS: POTASSIUM 3.9 mmol/L (3.6-5.2); SODIUM 135 mmol/L (132-148)
[2016-11-22 07:38] LABS: ALB/GLOB RATIO 0.9 (1.0-2.1); ALKALINE PHOSPHATASE 136 U/L (38-126); AST/SGOT 28 U/L (17-59); BILIRUBIN,TOTAL 0.5 mg/dL (0.2-1.3); BLOOD UREA NITROGEN 12 mg/dL (9-20); CARBON DIOXIDE 25 mmol/L (22-30); GFR AFRICAN-AMERICAN > 60; TOTAL PROTEIN 6.2 g/dL (6.3-8.3)
[2016-11-22 07:39] LABS: ALT/SGPT 18 U/L (21-72); CALCIUM 8.9 mg/dl (8.6-10.4); GLUCOSE,RANDOM 130 mg/dL (75-110); MAGNESIUM 1.8 mg/dL (1.6-2.3); PHOSPHOROUS 3.5 mg/dL (2.5-4.5)
[2016-11-22 10:02] LABS: BASOPHIL 2 % (0-2); EOSINOPHIL 1 % (0-4); NEUTROPHIL 81 % (50-75); TOTAL CELLS COUNTED 100
[2016-11-22] MEDS: Saccharomyces Boulardi 250 mg Cap PO SCH ×2 (10:46→18:17)
[2016-11-22] MEDS: Pantoprazole 40 mg EC Tab PO SCH (10:46)
[2016-11-22] MEDS: Hydrocortisone 2.5% Rectal Cream(30 gm) PR SCH ×2 (14:12→18:20)
--- NOTE | 2016-11-22 18:10 | CP.PCM.PN ---
Subjective - Date & Time of Evaluation Date of Evaluation: 11/22/16 Time of Evaluation: 18:07 - Subjective Subjective: PGY-1 note for hospitalist service Pt seen and examined at bedside. No acute events overnight. Pt reports having a BM. He is tolerating PO. Pt complains of weakness and leg pain. A lengthy conversation took place at bedside with information systems specialist discussing expectations and goals of care. Pt is concerned about going home when he feels that he cannot walk or take care of himself. Objective - Vital Signs/Intake and Output Vital Signs (last 24 hours): Temp Pulse Resp BP Pulse Ox 99.2 F 87 20 109/51 L 95 11/22/16 15:00 11/22/16 15:00 11/22/16 15:00 11/22/16 15:00 11/22/16 15:00 Intake and Output: 11/22/16 11/22/16 06:59 18:59 Intake Total 400 Output Total 850 Balance -450 - Medications Medications: Current Medications Acetaminophen (Tylenol 325mg Tab) 650 mg PO Q6 PRN PRN Reason: Fever >100.4 F, pain Last Admin: 11/20/16 04:20 Dose: 650 mg Docusate Sodium (Colace) 100 mg PO TID [facility] Last Admin: 11/22/16 14:15 Dose: Not Given Gabapentin (Neurontin) 300 mg PO TID [facility] Last Admin: 11/22/16 14:12 Dose: 300 mg Hydrocortisone (Anusol-Hc) 0 gm [place] BID [facility] Last Admin: 11/22/16 14:12 Dose: 1 applic Imipenem/Cilastatin Sodium 500 (mg/ Sodium Chloride) 100 mls @ 100 mls/hr IVPB Q8H [facility] Last Admin: 11/22/16 16:42 Dose: 100 mls/hr Lactulose (Enulose) 20 gm PO HS [facility] Last Admin: 11/21/16 22:17 Dose: Not Given Megestrol Acetate (Megace) 40 mg PO DAILY [facility] Last Admin: 11/22/16 10:47 Dose: 40 mg Morphine Sulfate (Morphine) 1 mg IVP Q4 PRN PRN Reason: Pain, severe (8-10) Last Admin: 11/21/16 22:26 Dose: 1 mg Ondansetron HCl (Zofran Inj) 4 mg IVP Q6 PRN PRN Reason: Nausea/Vomiting Last Admin: 11/22/16 15:47 Dose: 4 mg Pantoprazole Sodium (Protonix Ec Tab) 40 mg PO DAILY [facility] Last Admin: 11/22/16 10:46 Dose: 40 mg Saccharomyces Boulardii (Florastor) 250 mg PO BID [facility] Last Admin: 11/22/16 10:46 Dose: 250 mg Tramadol HCl (Ultram) 50 mg PO TID [facility] Last Admin: 11/22/16 14:11 Dose: 50 mg - Labs Labs: 11/22/16 07:00 11/22/16 07:00 PT 15.8 SECONDS (9.7-12.2) H 11/13/16 11:08 INR 1.4 11/13/16 11:08 APTT 27 SECONDS (21-34) 11/13/16 11:08 - Constitutional Appears: Chronically Ill - Head Exam Head Exam: ATRAUMATIC, NORMOCEPHALIC - ENT Exam ENT Exam: Mucous Membranes Moist - Respiratory Exam Respiratory Exam: Clear to Ausculation Bilateral, NORMAL BREATHING PATTERN - Cardiovascular Exam Cardiovascular Exam: +S1, +S2 - GI/Abdominal Exam GI & Abdominal Exam: Soft, Normal Bowel Sounds - Extremities Exam Extremities Exam: Tenderness (to palpation over lower extremities) - Neurological Exam Neurological Exam: Alert, Awake - Skin Skin Exam: Dry, Warm Assessment and Plan - Assessment and Plan (Free Text) Assessment: Bilateral Lower extremity and back Pain likely secondary to metastatic disease Patient emotional regarding his condition preventing him from being "functional " Chest/Abd/Pelvis CT with po contrast (11/12/16): Stable appearing lobular pleural densities of both lung bases. Small nodules right lower lung base unchanged. Suspect new metastatic lesion within the right lobe liver. Hepatomegaly. Small cyst caudate lobe felt to be present. Splenomegaly. Sclerotic metastatic deposits within the pelvis sacrum of both hips, L2 segment and T7 segments. Status post cystectomy and prostatectomy with a right-sided ileal conduit and ileostomy right lower quadrant of the abdomen. Morphine 1 mg IVP once given for severe leg pain. Improved. Will have PRN order in place for severe pain. Continue Tramadol 50 mg po TID and Gabapentin 300 mg po TID Regular diet Normal Saline IV @100cc Zofran 4mg IVP Q6h PRN for nausea Venous dopplers negative Pain management on consult-->help appreciated Palliative Care Consult, Nellie Griffith, help appreciated. Per palliative care consult, patient wishes to remain full code. PT/OT 04/2016 PET Scan: revealed enlarged lymph nodes in lower abdomen left of aortic bifurcation demonstrates increased FG uptake and multiple osseous metastasis including T7, L2, pelvic bones bilaterally, and bilateral femurs (see full report) 02/2016 CT chest/abd/pelvis: No evidence of thoracic metastasis. Stable pleural plaques bilaterally. Several new mildly enlarged retroperitoneal lymph nodes are noted. Status post left nephrectomy and cystectomy with formation of ileal conduit (see full report) Abdominal Pain + constipation x 8 days - family states patient had 3 small BMs Abdomen X-Ray Flat plate: Dilated small and large bowel loops - distal colonic obstruction versus ileus. Follow-up recommended no upright views available to assess for any subdiaphragmatic free air Patient refused NG tube placement overnight but now agreeable. Patient currently NPO. General surgery, Dr. Arita, consulted. Help appreciated. Lactulose given. Pt had BM today. Nursing instructed to give chamomile tea enema if constipation persists Abdominal flat plate ordered Diet advanced as per surgery, pt on clear liquids Symptomatic Anemia Improving Continue to monitor H&H and plan to transfuse if hemoglobin continues to decrease Hemoglobin improved to 9.0 from 8.8 s/p transfusion Type and Cross Transfused pRBCs Heme/Onc consulted, Dr. 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 Billy Del Toro, help appreciated. Patient emotional regarding thought of chemotherapy. Urology consult: Dr. Richmond on board, help appreciated. Palliative Care Consult, Nellie Griffith, help appreciated Pyuria Afebrile f/u repeat urinalysis and culture Urine Culture (11/16/16): Enterococcus Faecalis Urine Culture (11/13/16): Klebsiella pneumoniae Discontinue Rocephin IV (started on 11/14/16) as patient is still spiking fever. Start Primaxin 500 mg IVPB q6h (11/16/16). Florastor 250mg PO BID Unstable Gait Physical therapist working with patient. Notes bed mobility, ADLs, transfers limited by constant pain. Gait continues to be impaired. Hemorrhoids Anusol cream for symptomatic relief Prophylactic Measures Protonix 40 mg IVP daily Zofran 4 mg IVP Q6H PRN Tylenol 650 mg PO Q6H PRN Vanilla Boost TID for dietary supplement PT/OT [employer] referral community support worker consult placed in regard to obtaining citizenship/medicare/ medicaid
[2016-11-23] MEDS: Pantoprazole 40 mg EC Tab PO SCH (09:18)
[2016-11-23] MEDS: Saccharomyces Boulardi 250 mg Cap PO SCH ×2 (09:19→17:59)
[2016-11-23] MEDS: Hydrocortisone 2.5% Rectal Cream(30 gm) PR SCH ×2 (10:00→18:04)
[2016-11-23 11:22] LABS: BASO # 0.1 K/uL (0.0-0.2); BASO % 0.8 % (0.0-2.0); EOS # 0.1 K/uL (0.0-0.7); EOS % 0.5 % (0.0-4.0); HEMATOCRIT 28.1 % (35.0-51.0); LYMPH # 1.1 K/uL (1.0-4.3); LYMPH % 8.5 % (20.0-40.0); MEAN CELL VOLUME 80.6 fL (80.0-94.0); MEAN CORPUSCULAR HEMOGLOBIN 25.3 pg (27.0-31.0); MEAN CORPUSCULAR HGB CONC 31.4 g/dL (33.0-37.0); MONO # 0.8 K/uL (0.0-0.8); MONO % 6.4 % (0.0-10.0); PLATELET COUNT 251 K/uL (130-400); RED CELL DISTRIBUTION WIDTH 16.8 % (11.5-14.5); WHITE BLOOD COUNT 13.3 K/uL (4.8-10.8)
[2016-11-23 11:43] LABS: CHLORIDE 98 mmol/L (98-107); SODIUM 131 mmol/L (132-148)
[2016-11-23 11:45] LABS: GFR AFRICAN-AMERICAN > 60
[2016-11-23 11:46] LABS: ALB/GLOB RATIO 0.9 (1.0-2.1); ALKALINE PHOSPHATASE 134 U/L (38-126); ALT/SGPT 17 U/L (21-72); AST/SGOT 21 U/L (17-59); BILIRUBIN,TOTAL 0.6 mg/dL (0.2-1.3); BLOOD UREA NITROGEN 12 mg/dL (9-20); CARBON DIOXIDE 26 mmol/L (22-30); GLUCOSE,RANDOM 103 mg/dL (75-110); TOTAL PROTEIN 6.2 g/dL (6.3-8.3)
[2016-11-23 11:47] LABS: CALCIUM 8.6 mg/dl (8.6-10.4)
[2016-11-23 11:49] LABS: NEUTROPHIL 82 % (50-75); TOTAL CELLS COUNTED 100
--- NOTE | 2016-11-23 13:18 | CP.PCM.PN ---
Subjective - Date & Time of Evaluation Date of Evaluation: 11/23/16 Time of Evaluation: 13:17 - Subjective Subjective: Patient was seen and examined at bedside. He reports sleeping 5-6 hours last night intermittently and states that he feels exhausted. Pt states that he has been having bowel movements regularly, although they seem to be softer and darker than usual. He complains of bloating causing him abdominal discomfort relieved by passing gas. His pain medications (morphine, tramadol, neurontin) have been managing his pain at 3/10 on the VAS. He denies any other complaints. He states that the hemorrhoid cream that was prescribed to him has been helping. The patient's family is complaining that he has no appetite. He ate 1/ 2 sandwich today, 1 full sandwich yesterday, drinks 1 "Boost" shake daily, and has also been having some juice on a daily basis. Patient was started on Megace to stimulate his appetite. The patient and his family are concerned about the status of his infection. They are also worried about how he is going to get home without regaining prior function. He states that PT has been helping. The patient reports fever/chills, nausea, soft dark brown diarrhea (4 episodes two days ago, 3 episodes yesterday, 1 episode today), bloating, abdominal discomfort , night sweats, nightmares, depression, cough, and white sputum production. The patient denies dizziness, headache, shortness of breath, chest pain, and vomiting. Objective - Vital Signs/Intake and Output Vital Signs (last 24 hours): Temp Pulse Resp BP Pulse Ox 98 F 80 19 119/64 96 11/23/16 10:19 11/23/16 08:20 11/23/16 08:20 11/23/16 08:20 11/23/16 08:20 Intake and Output: 11/23/16 11/23/16 06:59 18:59 Intake Total 350 280 Output Total 400 Balance 350 -120 - Medications Medications: Current Medications Acetaminophen (Tylenol 325mg Tab) 650 mg PO Q6 PRN PRN Reason: Fever >100.4 F, pain Last Admin: 11/23/16 09:19 Dose: 650 mg Docusate Sodium (Colace) 100 mg PO TID [facility] Last Admin: 11/23/16 09:18 Dose: 100 mg Gabapentin (Neurontin) 300 mg PO TID [facility] Last Admin: 11/23/16 09:19 Dose: 300 mg Hydrocortisone (Anusol-Hc) 0 gm [place] BID [facility] Last Admin: 11/22/16 18:20 Dose: 1 applic Imipenem/Cilastatin Sodium 500 (mg/ Sodium Chloride) 100 mls @ 100 mls/hr IVPB Q8H [facility] Last Admin: 11/23/16 06:25 Dose: 100 mls/hr Lactulose (Enulose) 20 gm PO HS [facility] Last Admin: 11/22/16 21:41 Dose: Not Given Megestrol Acetate (Megace) 40 mg PO DAILY [facility] Last Admin: 11/23/16 09:19 Dose: 40 mg Morphine Sulfate (Morphine) 1 mg IVP Q4 PRN PRN Reason: Pain, severe (8-10) Last Admin: 11/22/16 22:54 Dose: 1 mg Ondansetron HCl (Zofran Inj) 4 mg IVP Q6 PRN PRN Reason: Nausea/Vomiting Last Admin: 11/22/16 15:47 Dose: 4 mg Pantoprazole Sodium (Protonix Ec Tab) 40 mg PO DAILY [facility] Last Admin: 11/23/16 09:18 Dose: 40 mg Saccharomyces Boulardii (Florastor) 250 mg PO BID [facility] Last Admin: 11/23/16 09:19 Dose: 250 mg Tramadol HCl (Ultram) 50 mg PO TID [facility] Last Admin: 11/23/16 09:19 Dose: 50 mg - Labs Labs: 11/23/16 11:12 11/23/16 11:12 PT 15.8 SECONDS (9.7-12.2) H 11/13/16 11:08 INR 1.4 11/13/16 11:08 APTT 27 SECONDS (21-34) 11/13/16 11:08 - Constitutional Appears: Non-toxic, No Acute Distress, Chronically Ill - Head Exam Head Exam: ATRAUMATIC, NORMAL INSPECTION, NORMOCEPHALIC - Eye Exam Eye Exam: EOMI, Normal appearance, PERRL - ENT Exam ENT Exam: Mucous Membranes Moist - Neck Exam Neck Exam: Full ROM, Normal Inspection - Respiratory Exam Respiratory Exam: Clear to Ausculation Bilateral, NORMAL BREATHING PATTERN. absent: Rales, Rhonchi, Wheezes - Cardiovascular Exam Cardiovascular Exam: +S1, +S2 - GI/Abdominal Exam GI & Abdominal Exam: Soft, Normal Bowel Sounds. absent: Firm, Guarding, Tenderness - Extremities Exam Extremities Exam: Normal Inspection. absent: Pedal Edema, Tenderness - Neurological Exam Neurological Exam: Alert, Awake, Oriented x3 - Psychiatric Exam Psychiatric exam: Depressed - Skin Skin Exam: Intact, Normal Color Assessment and Plan - Assessment and Plan (Free Text) Assessment: Bilateral Lower extremity and back Pain likely secondary to metastatic disease Patient continues to be emotional regarding his condition preventing him from being "functional." Lengthy discussion took place yesterday regarding goals of care and expectations given patient's medical condition. Morphine 1 mg IVP once given for severe leg pain. Improved. Will have PRN order in place for severe pain. Continue Tramadol 50 mg po TID and Gabapentin 300 mg po TID Regular diet Normal Saline IV @100cc Zofran 4mg IVP Q6h PRN for nausea Venous dopplers negative Pain management on consult-->help appreciated Palliative Care Consult, Nellie Griffith, help appreciated. Per palliative care consult, patient wishes to remain full code. PT/OT Chest/Abd/Pelvis CT with po contrast (11/12/16): Stable appearing lobular pleural densities of both lung bases. Small nodules right lower lung base unchanged. Suspect new metastatic lesion within the right lobe liver. Hepatomegaly. Small cyst caudate lobe felt to be present. Splenomegaly. Sclerotic metastatic deposits within the pelvis sacrum of both hips, L2 segment and T7 segments. Status post cystectomy and prostatectomy with a right-sided ileal conduit and ileostomy right lower quadrant of the abdomen. 04/2016 PET Scan: revealed enlarged lymph nodes in lower abdomen left of aortic bifurcation demonstrates increased FG uptake and multiple osseous metastasis including T7, L2, pelvic bones bilaterally, and bilateral femurs (see full report) 02/2016 CT chest/abd/pelvis: No evidence of thoracic metastasis. Stable pleural plaques bilaterally. Several new mildly enlarged retroperitoneal lymph nodes are noted. Status post left nephrectomy and cystectomy with formation of ileal conduit (see full report) Poor Appetite Megace 40 mg po daily Start PPN Continue Boosts TID Abdominal Pain Resolved. NG tube discontinued Abdomen X-Ray Flat plate: Dilated small and large bowel loops - distal colonic obstruction versus ileus. Follow-up recommended no upright views available to assess for any subdiaphragmatic free air Patient refused NG tube placement overnight but now agreeable. Patient currently NPO. General surgery, Dr. Arita, consulted. Help appreciated. Lactulose given. Pt had BM today. Nursing instructed to give chamomile tea enema if constipation persists Abdominal flat plate ordered Diet advanced as per surgery, pt on clear liquids Symptomatic Anemia Improving Continue to monitor H&H and plan to transfuse if hemoglobin continues to decrease Hemoglobin improved to 9.0 from 8.8 s/p transfusion Type and Cross Transfused pRBCs Heme/Onc consulted, Dr. 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 Billy Del Toro, help appreciated. Patient emotional regarding thought of chemotherapy. Urology consult: Dr. Richmond on board, help appreciated. Palliative Care Consult, Nellie Griffith, help appreciated Pyuria Afebrile f/u repeat urinalysis and culture Urine Culture (11/16/16): Enterococcus Faecalis Urine Culture (11/13/16): Klebsiella pneumoniae Discontinue Rocephin IV (started on 11/14/16) as patient is still spiking fever. Start Primaxin 500 mg IVPB q6h (11/16/16). Florastor 250mg PO BID Unstable Gait Physical therapist working with patient. Notes bed mobility, ADLs, transfers limited by constant pain. Gait continues to be impaired. Hemorrhoids Anusol cream for symptomatic relief Prophylactic Measures Protonix 40 mg IVP daily Zofran 4 mg IVP Q6H PRN Tylenol 650 mg PO Q6H PRN Vanilla Boost TID for dietary supplement PT/OT [employer] referral wire web worker consult placed in regard to obtaining citizenship/medicare/ medicaid
--- NOTE | 2016-11-23 15:28 | CP.PCM.PN ---
Subjective - Date & Time of Evaluation Date of Evaluation: 11/23/16 Time of Evaluation: 15:24 - Subjective Subjective: Patient complains of pain to his both thighs. Family concerned about inadequate housing condition where patient was to be discharged. Objective - Vital Signs/Intake and Output Vital Signs (last 24 hours): Temp Pulse Resp BP Pulse Ox 98 F 80 19 119/64 96 11/23/16 10:19 11/23/16 08:20 11/23/16 08:20 11/23/16 08:20 11/23/16 08:20 Intake and Output: 11/23/16 11/23/16 06:59 18:59 Intake Total 350 280 Output Total 400 Balance 350 -120 - Medications Medications: Current Medications Acetaminophen (Tylenol 325mg Tab) 650 mg PO Q6 PRN PRN Reason: Fever >100.4 F, pain Last Admin: 11/23/16 09:19 Dose: 650 mg Docusate Sodium (Colace) 100 mg PO TID [facility] Last Admin: 11/23/16 13:28 Dose: 100 mg Gabapentin (Neurontin) 300 mg PO TID [facility] Last Admin: 11/23/16 13:34 Dose: 300 mg Hydrocortisone (Anusol-Hc) 0 gm [place] BID [facility] Last Admin: 11/23/16 10:00 Dose: 1 applic Imipenem/Cilastatin Sodium 500 (mg/ Sodium Chloride) 100 mls @ 100 mls/hr IVPB Q8H [facility] Last Admin: 11/23/16 13:28 Dose: 100 mls/hr Lactulose (Enulose) 20 gm PO [facility] Last Admin: 11/22/16 21:41 Dose: Not Given Megestrol Acetate (Megace) 40 mg PO DAILY [facility] Last Admin: 11/23/16 09:19 Dose: 40 mg Morphine Sulfate (Morphine) 1 mg IVP Q4 PRN PRN Reason: Pain, severe (8-10) Last Admin: 11/22/16 22:54 Dose: 1 mg Ondansetron HCl (Zofran Inj) 4 mg IVP Q6 PRN PRN Reason: Nausea/Vomiting Last Admin: 11/22/16 15:47 Dose: 4 mg Pantoprazole Sodium (Protonix Ec Tab) 40 mg PO DAILY [facility] Last Admin: 11/23/16 09:18 Dose: 40 mg Saccharomyces Boulardii (Florastor) 250 mg PO BID [facility] Last Admin: 11/23/16 09:19 Dose: 250 mg Tramadol HCl (Ultram) 50 mg PO TID [facility] Last Admin: 11/23/16 13:30 Dose: 50 mg - Labs Labs: 11/23/16 11:12 11/23/16 11:12 PT 15.8 SECONDS (9.7-12.2) H 11/13/16 11:08 INR 1.4 11/13/16 11:08 APTT 27 SECONDS (21-34) 11/13/16 11:08 - Constitutional Appears: Chronically Ill - Head Exam Head Exam: ATRAUMATIC, NORMAL INSPECTION, NORMOCEPHALIC - Eye Exam Eye Exam: EOMI, Normal appearance, PERRL Pupil Exam: NORMAL ACCOMODATION, PERRL - ENT Exam ENT Exam: Mucous Membranes Moist, Normal Exam - Neck Exam Neck Exam: Full ROM, Normal Inspection - Respiratory Exam Respiratory Exam: Decreased Breath Sounds, Clear to Ausculation Bilateral, NORMAL BREATHING PATTERN - Cardiovascular Exam Cardiovascular Exam: REGULAR RHYTHM, +S1, +S2 - GI/Abdominal Exam GI & Abdominal Exam: Soft, Normal Bowel Sounds - Rectal Exam Rectal Exam: Deferred - Exam Exam: NORMAL INSPECTION - Extremities Exam Extremities Exam: Normal Inspection Additional comments: Limited ROM due to pain - Back Exam Back Exam: NORMAL INSPECTION - Neurological Exam Neurological Exam: Alert, Altered Neuro motor strength exam: Left Upper Extremity: 3, Right Upper Extremity: 3, Left Lower Extremity: 2/1, Right Lower Extremity: 2/1 - Psychiatric Exam Psychiatric exam: Depressed - Skin Skin Exam: Normal Color Assessment and Plan - Assessment and Plan (Free Text) Assessment: Patient looks chronically ill with complains of bone pain, what keeps him in bed mostly. Pain is managed with Morphine, Ultram and Neurontin. Family and patient are aware of patient's advanced cancer and mets to the bones. They would want patient to be comfortable, but are concerned with poor house condition where they live at present. Patient and family are undocumented immigrants and live in somebody's basement with no enough day light and a lot of moisture. I asked ADORE Malika to address this matter. Further, I reviewed patient's clinical presentation and reviewed with Bob, the son, that patient wanted him to be the surrogate decision maker if patient' s condition gets worse. I reviewed the usual path of bone mets progression and suggested that patient was a example of it. Comfort care was reviewed. It seemed that patient and the family agreed upon common goal of comfort when the cure is not possible. We agreed to meet again tomorrow and finalize discussion on goals of care , once family and patient discuss it among them selves. Impression * Patient is a chronically ill with bone mets * Patient and the family aware of the diagnosis * Comfort is the goal * Poor housing condition, assistance from SS needed * patient still undecided on Code status, leaves it up to the son Bob Suggestion * SS to assist patient and family if there is any available assistance out there for undocumented immigrants * Symptoms management * New family meeting tomorrow to finalize the Code status discussion
[2016-11-23 16:24] VITALS: RESP 20
[2016-11-23 16:28] LABS: RBC URINE 3 /hpf (0-3); URINE BACTERIA OCC (<OCC); URINE BILIRUBIN NEGATIVE (NEGATIVE); URINE BLOOD NEGATIVE (NEGATIVE); URINE COLOR Yellow (YELLOW); URINE GLUCOSE (UA) NORMAL (Normal); URINE KETONE NEGATIVE (NEGATIVE); URINE PROTEIN 1+ mg/dL (NEGATIVE); URINE UROBILINOGEN NORMAL mg/dL (0.2-1.0); WBC URINE 20 /hpf (0-5)
[2016-11-23 16:34] LABS: URINE LEUKOCYTE ESTERASE 2+ Leu/uL (Negative)
[2016-11-24 06:26] LABS: BASO # 0.1 K/uL (0.0-0.2); BASO % 0.6 % (0.0-2.0); EOS # 0.1 K/uL (0.0-0.7); EOS % 0.7 % (0.0-4.0); HEMATOCRIT 28.7 % (35.0-51.0); LYMPH # 0.9 K/uL (1.0-4.3); MEAN CELL VOLUME 80.4 fL (80.0-94.0); MEAN CORPUSCULAR HEMOGLOBIN 25.6 pg (27.0-31.0); MEAN CORPUSCULAR HGB CONC 31.9 g/dL (33.0-37.0); MEAN PLATELET VOLUME 8.3 fL (7.2-11.7); MONO # 0.7 K/uL (0.0-0.8); PLATELET COUNT 261 K/uL (130-400); RED CELL DISTRIBUTION WIDTH 16.6 % (11.5-14.5); WHITE BLOOD COUNT 13.1 K/uL (4.8-10.8)
[2016-11-24 06:50] LABS: CHLORIDE 98 mmol/L (98-107); SODIUM 132 mmol/L (132-148)
[2016-11-24 06:52] LABS: GFR AFRICAN-AMERICAN > 60
[2016-11-24 06:53] LABS: ALB/GLOB RATIO 0.9 (1.0-2.1); ALKALINE PHOSPHATASE 163 U/L (38-126); ALT/SGPT 23 U/L (21-72); AST/SGOT 23 U/L (17-59); BILIRUBIN,TOTAL 0.6 mg/dL (0.2-1.3); BLOOD UREA NITROGEN 12 mg/dL (9-20); CALCIUM 8.6 mg/dl (8.6-10.4); CARBON DIOXIDE 23 mmol/L (22-30); GLUCOSE,RANDOM 105 mg/dL (75-110); TOTAL PROTEIN 6.5 g/dL (6.3-8.3)
[2016-11-24 06:54] LABS: MAGNESIUM 1.7 mg/dL (1.6-2.3)
--- NOTE | 2016-11-24 09:15 | CP.PCM.PN ---
Subjective - Date & Time of Evaluation Date of Evaluation: 11/24/16 Time of Evaluation: 09:12 - Subjective Subjective: Patient seen and examined at bedside. He states that he is feeling very weak today and is complaining of continued abdominal discomfort and pain associated with diarrhea. He had 7-8 episodes of diarrhea yesterday and 2 episodes this morning. Hes requesting medications to control his diarrhea in addition to the results of his stool studies. He states that the pain in his legs has been managed well and is improving as he is now able to move around and transfer back and forth with the help of his to his bedside commode. The patient reports fever and chills. He denies shortness of breath, chest pain, and palpitations. Objective - Vital Signs/Intake and Output Vital Signs (last 24 hours): Temp Pulse Resp BP Pulse Ox 98.8 F 84 20 108/70 96 11/24/16 08:00 11/24/16 08:00 11/24/16 08:00 11/24/16 08:00 11/24/16 08:00 Intake and Output: 11/24/16 11/24/16 06:59 18:59 Intake Total 250 Output Total 1200 Balance -950 - Medications Medications: Current Medications Acetaminophen (Tylenol 325mg Tab) 650 mg PO Q6 PRN PRN Reason: Fever >100.4 F, pain Last Admin: 11/23/16 18:00 Dose: 650 mg Docusate Sodium (Colace) 100 mg PO TID [facility] Last Admin: 11/23/16 18:01 Dose: Not Given Gabapentin (Neurontin) 300 mg PO TID [facility] Last Admin: 11/23/16 17:59 Dose: 300 mg Hydrocortisone (Anusol-Hc) 0 gm [place] BID [facility] Last Admin: 11/23/16 18:04 Dose: 1 applic Imipenem/Cilastatin Sodium 500 (mg/ Sodium Chloride) 100 mls @ 100 mls/hr IVPB Q8H [facility] Last Admin: 11/24/16 06:02 Dose: 100 mls/hr Lactulose (Enulose) 20 gm PO HS [facility] Last Admin: 11/23/16 22:03 Dose: Not Given Loperamide HCl (Imodium) 2 mg PO ONCE STA Stop: 11/24/16 09:09 Megestrol Acetate (Megace) 40 mg PO DAILY [facility] Last Admin: 11/23/16 09:19 Dose: 40 mg Morphine Sulfate (Morphine) 1 mg IVP Q4 PRN PRN Reason: Pain, severe (8-10) Last Admin: 11/24/16 05:59 Dose: 1 mg Ondansetron HCl (Zofran Inj) 4 mg IVP Q6 PRN PRN Reason: Nausea/Vomiting Last Admin: 11/22/16 15:47 Dose: 4 mg Pantoprazole Sodium (Protonix Ec Tab) 40 mg PO DAILY [facility] Last Admin: 11/23/16 09:18 Dose: 40 mg Saccharomyces Boulardii (Florastor) 250 mg PO BID [facility] Last Admin: 11/23/16 17:59 Dose: 250 mg Simethicone (Mylicon Liq) 40 mg PO QID [facility] Tramadol HCl (Ultram) 50 mg PO TID [facility] Last Admin: 11/23/16 18:01 Dose: 50 mg - Labs Labs: 11/24/16 06:18 11/24/16 06:18 PT 15.8 SECONDS (9.7-12.2) H 11/13/16 11:08 INR 1.4 11/13/16 11:08 APTT 27 SECONDS (21-34) 11/13/16 11:08 - Constitutional Appears: Non-toxic, No Acute Distress, Chronically Ill - Head Exam Head Exam: ATRAUMATIC, NORMAL INSPECTION, NORMOCEPHALIC - Eye Exam Eye Exam: EOMI, Normal appearance, PERRL - ENT Exam ENT Exam: Mucous Membranes Moist - Neck Exam Neck Exam: Full ROM - Respiratory Exam Respiratory Exam: Clear to Ausculation Bilateral, NORMAL BREATHING PATTERN. absent: Rales, Rhonchi, Wheezes - Cardiovascular Exam Cardiovascular Exam: +S1, +S2. absent: Bradycardia, Tachycardia - GI/Abdominal Exam GI & Abdominal Exam: Soft, Tenderness, Normal Bowel Sounds. absent: Firm, Guarding Additional comments: tenderness to palpation richard diverting urinary bag - Extremities Exam Extremities Exam: Normal Capillary Refill, Normal Inspection. absent: Pedal Edema, Tenderness - Neurological Exam Neurological Exam: Alert, Awake, Oriented x3 Neuro motor strength exam: Left Upper Extremity: 4, Right Upper Extremity: 4, Left Lower Extremity: 4, Right Lower Extremity: 4 - Psychiatric Exam Psychiatric exam: Normal Affect, Normal Mood - Skin Skin Exam: Intact, Normal Color Assessment and Plan - Assessment and Plan (Free Text) Assessment: Bilateral Lower extremity and back Pain likely secondary to metastatic disease Patient continues to be emotional regarding his condition preventing him from being "functional" but understands more clearly status and seems agreeable to comfort care per discussion. Pain currently controlled with following: Morphine 1 mg IVP PRN for severe pain Continue Tramadol 50 mg po TID and Gabapentin 300 mg po TID Regular diet Normal Saline IV @100cc Zofran 4mg IVP Q6h PRN for nausea Venous dopplers negative Pain management on consult PT/OT Chest/Abd/Pelvis CT with po contrast (11/12/16): Stable appearing lobular pleural densities of both lung bases. Small nodules right lower lung base unchanged. Suspect new metastatic lesion within the right lobe liver. Hepatomegaly. Small cyst caudate lobe felt to be present. Splenomegaly. Sclerotic metastatic deposits within the pelvis sacrum of both hips, L2 segment and T7 segments. Status post cystectomy and prostatectomy with a right-sided ileal conduit and ileostomy right lower quadrant of the abdomen. 04/2016 PET Scan: revealed enlarged lymph nodes in lower abdomen left of aortic bifurcation demonstrates increased FG uptake and multiple osseous metastasis including T7, L2, pelvic bones bilaterally, and bilateral femurs (see full report) 02/2016 CT chest/abd/pelvis: No evidence of thoracic metastasis. Stable pleural plaques bilaterally. Several new mildly enlarged retroperitoneal lymph nodes are noted. Status post left nephrectomy and cystectomy with formation of ileal conduit (see full report) Poor Appetite Megace 40 mg po daily Consider starting PPN Continue Boosts TID Abdominal Pain Resolved. NG tube discontinued Abdomen X-Ray Flat plate: Dilated small and large bowel loops - distal colonic obstruction versus ileus. Follow-up recommended no upright views available to assess for any subdiaphragmatic free air Patient refused NG tube placement overnight but now agreeable. Patient currently NPO. General surgery, Dr. Arita, consulted. Help appreciated. Lactulose given. Pt had BM today. Nursing instructed to give chamomile tea enema if constipation persists Abdominal flat plate ordered Diet advanced as per surgery, pt on clear liquids Diarrhea likely secondary to stool softeners Loperimide 2 mg po once stool studies sent Symptomatic Anemia Improved Continue to monitor H&H and plan to transfuse if hemoglobin continues to decrease Type and Cross Transfused pRBCs Heme/Onc consulted, Dr. 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 Billy Del Toro, help appreciated. Patient emotional regarding thought of chemotherapy. Urology consult: Dr. Richmond on board, help appreciated. Palliative Care Consult, Nellie Griffith, help appreciated. Per palliative care, family meeting scheduled for today to finalize code status. Patient and family aware of diagnosis and agree goal is for comfort care. SonBob is surrogate decision maker. Pyuria Afebrile urinalysis: color yellow, clarity clear, protein 4, leuk esterase 2+, WBC 20, Bacteria OccH f/u urine culture Urine Culture (11/16/16): Enterococcus Faecalis Urine Culture (11/13/16): Klebsiella pneumoniae Discontinue Rocephin IV (started on 11/14/16) as patient is still spiking fever. Start Primaxin 500 mg IVPB q6h (11/16/16). Florastor 250mg PO BID Unstable Gait Physical therapist working with patient. Notes bed mobility, ADLs, transfers limited by constant pain. Gait continues to be impaired. Hemorrhoids Improved Anusol cream for symptomatic relief Prophylactic Measures Protonix 40 mg IVP daily Zofran 4 mg IVP Q6H PRN Tylenol 650 mg PO Q6H PRN Vanilla Boost TID for dietary supplement PT/OT Leasing Manager referral office worker consult placed in regard to obtaining citizenship/medicare/ medicaid. SS to assist pt on any available assistance for undocumented immigrants.
[2016-11-24 09:27] LABS: NEUTROPHIL 92 % (50-75); TOTAL CELLS COUNTED 100
[2016-11-24] MEDS: Saccharomyces Boulardi 250 mg Cap PO SCH ×2 (09:34→18:08)
[2016-11-24] MEDS: Pantoprazole 40 mg EC Tab PO SCH (09:34)
[2016-11-24] MEDS: Hydrocortisone 2.5% Rectal Cream(30 gm) PR SCH ×2 (10:00→21:57)
[2016-11-24] MEDS: Simethicone 40 mg/0.6 ml Liquid (30 ml) PO SCH ×3 (10:00→18:08)
--- NOTE | 2016-11-24 13:54 | CP.PCM.PN ---
Subjective - Date & Time of Evaluation Date of Evaluation: 11/24/16 Time of Evaluation: 13:52 - Subjective Subjective: Family meeting held attended by the patient, his son Rachel Rojas from patients services and myself. Placement to [facility] discussed and Code status. Objective - Vital Signs/Intake and Output Vital Signs (last 24 hours): Temp Pulse Resp BP Pulse Ox 98.8 F 84 20 108/70 96 11/24/16 08:00 11/24/16 08:00 11/24/16 08:00 11/24/16 08:00 11/24/16 08:00 Intake and Output: 11/24/16 11/24/16 06:59 18:59 Intake Total 250 Output Total 1200 Balance -950 - Medications Medications: Current Medications Acetaminophen (Tylenol 325mg Tab) 650 mg PO Q6 PRN PRN Reason: Fever >100.4 F, pain Last Admin: 11/23/16 18:00 Dose: 650 mg Docusate Sodium (Colace) 100 mg PO TID [facility] Last Admin: 11/24/16 13:27 Dose: Not Given Gabapentin (Neurontin) 300 mg PO TID [facility] Last Admin: 11/24/16 13:25 Dose: 300 mg Hydrocortisone (Anusol-Hc) 0 gm [place] BID [facility] Last Admin: 11/24/16 10:00 Dose: 1 applic Imipenem/Cilastatin Sodium 500 (mg/ Sodium Chloride) 100 mls @ 100 mls/hr IVPB Q8H [facility] Last Admin: 11/24/16 13:27 Dose: 100 mls/hr Lactulose (Enulose) 20 gm PO HS [facility] Last Admin: 11/23/16 22:03 Dose: Not Given Megestrol Acetate (Megace) 40 mg PO DAILY [facility] Last Admin: 11/24/16 09:43 Dose: 40 mg Morphine Sulfate (Morphine) 1 mg IVP Q4 PRN PRN Reason: Pain, severe (8-10) Last Admin: 11/24/16 05:59 Dose: 1 mg Ondansetron HCl (Zofran Inj) 4 mg IVP Q6 PRN PRN Reason: Nausea/Vomiting Last Admin: 11/24/16 09:35 Dose: 4 mg Pantoprazole Sodium (Protonix Ec Tab) 40 mg PO DAILY [facility] Last Admin: 11/24/16 09:34 Dose: 40 mg Saccharomyces Boulardii (Florastor) 250 mg PO BID [facility] Last Admin: 11/24/16 09:34 Dose: 250 mg Simethicone (Mylicon Liq) 40 mg PO QID [facility] Last Admin: 11/24/16 13:26 Dose: 40 mg Tramadol HCl (Ultram) 50 mg PO TID [facility] Last Admin: 11/24/16 13:25 Dose: 50 mg - Labs Labs: 11/24/16 06:18 11/24/16 06:18 PT 15.8 SECONDS (9.7-12.2) H 11/13/16 11:08 INR 1.4 11/13/16 11:08 APTT 27 SECONDS (21-34) 11/13/16 11:08 - Constitutional Appears: Chronically Ill - Head Exam Head Exam: ATRAUMATIC, NORMAL INSPECTION, NORMOCEPHALIC - Eye Exam Eye Exam: EOMI, Normal appearance, PERRL Pupil Exam: NORMAL ACCOMODATION, PERRL - ENT Exam ENT Exam: Mucous Membranes Dry - Neck Exam Neck Exam: Full ROM, Normal Inspection - Respiratory Exam Respiratory Exam: Decreased Breath Sounds, NORMAL BREATHING PATTERN - Cardiovascular Exam Cardiovascular Exam: Tachycardia, REGULAR RHYTHM - GI/Abdominal Exam GI & Abdominal Exam: Soft, Normal Bowel Sounds - Rectal Exam Rectal Exam: Deferred - Extremities Exam Additional comments: pain to LEs , unable to walk - Back Exam Back Exam: NORMAL INSPECTION - Neurological Exam Neurological Exam: Alert, Oriented x3 Neuro motor strength exam: Left Upper Extremity: 3, Right Upper Extremity: 3, Left Lower Extremity: 2/1, Right Lower Extremity: 2/1 - Psychiatric Exam Psychiatric exam: Normal Affect, Normal Mood - Skin Skin Exam: Dry, Normal Color, Warm Assessment and Plan - Assessment and Plan (Free Text) Assessment: Patient remains alert, oriented X 3 with pain to lower back and B/L thighs, confined to bed. Pain is managed to the level of 3-5 at rest. Pain worsens with mobility. Skin is pale. Appetite poor. Advance care plan discussed. Patient and his son stated understanding of the diagnosis. At the moment their main concern is the comfort. Patient does not feel safe returning home where he lived due to unfavorable housing conditions. Also, patient is not able to ambulate and he is concerned that his will not be able to provide him with needed support. Family states being unable to provide private aide. Due to lack of health insurance, patient does not apply for [facility] placement. We discusses the comfort care provided by the Hospice services. I offered more information about Hospice and answered questions. I also clearly explained to patient and his son that under comfort care patient would not be expected to undergo any agressive treatenet and that main goal would be to provide comfort. Patient and his son agreed that they would accept the comfort care at the [facility] institution. SS found place at [place], [place] accepting the [facility] patients. Further, we discussed Code status. In presence of his son Bob, I offered my concerns about Cancer as progressive disease and possibility of a need for aggressive interventions in future. Patient stated that he would want to be allowed natural . His son cried, stating he hopped his father would recover. patient signed POLST asking for DNR/DNI .primary RN and Malika AVITIA made aware of. Impression * This is a chronically ill patient with advanced metastatic disease * Comfort is the main goal in care of this patient * patient accepted Hospice care Suggestion * Discharge planing to Hospice House * Agree with DNR/DNI * POLST on chart
--- NOTE | 2016-11-24 15:36 | CP.PCM.PN ---
Subjective - Date & Time of Evaluation Date of Evaluation: 11/24/16 Time of Evaluation: 15:05 - Subjective Subjective: Feels weak Objective - Vital Signs/Intake and Output Vital Signs (last 24 hours): Temp Pulse Resp BP Pulse Ox 98.8 F 84 20 108/70 96 11/24/16 08:00 11/24/16 08:00 11/24/16 08:00 11/24/16 08:00 11/24/16 08:00 Intake and Output: 11/24/16 11/24/16 06:59 18:59 Intake Total 250 100 Output Total 1200 Balance -950 100 - Medications Medications: Current Medications Acetaminophen (Tylenol 325mg Tab) 650 mg PO Q6 PRN PRN Reason: Fever >100.4 F, pain Last Admin: 11/23/16 18:00 Dose: 650 mg Docusate Sodium (Colace) 100 mg PO TID [facility] Last Admin: 11/24/16 13:27 Dose: Not Given Gabapentin (Neurontin) 300 mg PO TID [facility] Last Admin: 11/24/16 13:25 Dose: 300 mg Hydrocortisone (Anusol-Hc) 0 gm [place] BID [facility] Last Admin: 11/24/16 10:00 Dose: 1 applic Imipenem/Cilastatin Sodium 500 (mg/ Sodium Chloride) 100 mls @ 100 mls/hr IVPB Q8H [facility] Last Admin: 11/24/16 14:59 Dose: Not Given Lactulose (Enulose) 20 gm PO HS [facility] Last Admin: 11/23/16 22:03 Dose: Not Given Megestrol Acetate (Megace) 40 mg PO DAILY [facility] Last Admin: 11/24/16 09:43 Dose: 40 mg Morphine Sulfate (Morphine) 1 mg IVP Q4 PRN PRN Reason: Pain, severe (8-10) Last Admin: 11/24/16 05:59 Dose: 1 mg Ondansetron HCl (Zofran Inj) 4 mg IVP Q6 PRN PRN Reason: Nausea/Vomiting Last Admin: 11/24/16 09:35 Dose: 4 mg Pantoprazole Sodium (Protonix Ec Tab) 40 mg PO DAILY [facility] Last Admin: 11/24/16 09:34 Dose: 40 mg Saccharomyces Boulardii (Florastor) 250 mg PO BID [facility] Last Admin: 11/24/16 09:34 Dose: 250 mg Simethicone (Mylicon Liq) 40 mg PO QID [facility] Last Admin: 11/24/16 13:26 Dose: 40 mg Tramadol HCl (Ultram) 50 mg PO TID [facility] Last Admin: 11/24/16 13:25 Dose: 50 mg - Labs Labs: 11/24/16 06:18 11/24/16 06:18 PT 15.8 SECONDS (9.7-12.2) H 11/13/16 11:08 INR 1.4 11/13/16 11:08 APTT 27 SECONDS (21-34) 11/13/16 11:08 - Head Exam Head Exam: ATRAUMATIC - Eye Exam Eye Exam: Normal appearance - ENT Exam ENT Exam: Mucous Membranes Dry - Respiratory Exam Respiratory Exam: NORMAL BREATHING PATTERN - Cardiovascular Exam Cardiovascular Exam: +S1, +S2 - GI/Abdominal Exam GI & Abdominal Exam: Normal Bowel Sounds - Extremities Exam Extremities Exam: Normal Inspection Assessment and Plan (1) Anemia Assessment & Plan: chronic disease Status: Acute (2) Bladder cancer Assessment & Plan: stage IV with bone metastasis supportive care hospice DNR/DNI Status: Acute
[2016-11-24 20:24] LABS: C DIFF TOXIN A B POSITIVE ANTIGEN (NEGATIVE)
[2016-11-24] MEDS: Simethicone 80 mg Chewtab PO SCH (21:57)
[2016-11-24 22:23] LABS: FECAL LEUKOCYTES NEGATIVE (NEGATIVE)
--- NOTE | 2016-11-25 07:13 | CP.PCM.PN ---
<TataEri - Last Filed: 11/25/16 20:30> Subjective - Date & Time of Evaluation Date of Evaluation: 11/25/16 Time of Evaluation: 07:10 - Subjective Subjective: Pt seen and examined at bedside. Patient is tired and resting throughout morning. He reports 4 episodes of watery diarrhea today. Patient continues to have mild discomfort to abdomen. He denies fever and chills. Patient reports pain is controlled with pain medications. He is now DNR/DNI and approved to go to hospice. Objective - Vital Signs/Intake and Output Vital Signs (last 24 hours): Temp Pulse Resp BP Pulse Ox 98.6 F 92 H 20 120/69 96 11/24/16 16:00 11/24/16 16:00 11/24/16 16:00 11/24/16 16:00 11/24/16 16:00 Intake and Output: 11/25/16 11/25/16 06:59 18:59 Intake Total 300 Output Total 1600 Balance -1300 - Medications Medications: Current Medications Acetaminophen (Tylenol 325mg Tab) 650 mg PO Q6 PRN PRN Reason: Fever >100.4 F, pain Last Admin: 11/23/16 18:00 Dose: 650 mg Gabapentin (Neurontin) 300 mg PO TID [facility] Last Admin: 11/24/16 18:08 Dose: 300 mg Hydrocortisone (Anusol-Hc) 0 gm MS BID [facility] Last Admin: 11/24/16 21:57 Dose: 1 applic Imipenem/Cilastatin Sodium 500 (mg/ Sodium Chloride) 100 mls @ 100 mls/hr IVPB Q8H [facility] Last Admin: 11/25/16 06:25 Dose: 100 mls/hr Megestrol Acetate (Megace) 40 mg PO DAILY [facility] Last Admin: 11/24/16 09:43 Dose: 40 mg Metronidazole (Flagyl) 500 mg PO Q8H [facility] Last Admin: 11/25/16 05:32 Dose: 500 mg Morphine Sulfate (Morphine) 1 mg IVP Q4 PRN PRN Reason: Pain, severe (8-10) Last Admin: 11/24/16 21:58 Dose: 1 mg Ondansetron HCl (Zofran Inj) 4 mg IVP Q6 PRN PRN Reason: Nausea/Vomiting Last Admin: 11/24/16 09:35 Dose: 4 mg Pantoprazole Sodium (Protonix Ec Tab) 40 mg PO DAILY [facility] Last Admin: 11/24/16 09:34 Dose: 40 mg Saccharomyces Boulardii (Florastor) 250 mg PO BID [facility] Last Admin: 11/24/16 18:08 Dose: 250 mg Simethicone (Mylicon Chew Tab) 80 mg PO QID [facility] Last Admin: 11/24/16 21:57 Dose: 80 mg Tramadol HCl (Ultram) 50 mg PO TID [facility] Last Admin: 11/24/16 18:06 Dose: 50 mg - Labs Labs: 11/24/16 06:18 11/24/16 06:18 PT 15.8 SECONDS (9.7-12.2) H 11/13/16 11:08 INR 1.4 11/13/16 11:08 APTT 27 SECONDS (21-34) 11/13/16 11:08 - Constitutional Appears: Non-toxic, No Acute Distress - Head Exam Head Exam: ATRAUMATIC, NORMAL INSPECTION, NORMOCEPHALIC - Eye Exam Eye Exam: EOMI, Normal appearance, PERRL - ENT Exam ENT Exam: Mucous Membranes Moist - Neck Exam Neck Exam: Full ROM - Respiratory Exam Respiratory Exam: Clear to Ausculation Bilateral, NORMAL BREATHING PATTERN. absent: Rales, Rhonchi, Wheezes - Cardiovascular Exam Cardiovascular Exam: +S1, +S2. absent: Bradycardia, Tachycardia - GI/Abdominal Exam GI & Abdominal Exam: Soft, Normal Bowel Sounds. absent: Distended, Firm Additional comments: diverting bladder bag clean, clear yellow urine visualized - Extremities Exam Extremities Exam: Normal Capillary Refill, Normal Inspection. absent: Full ROM , Pedal Edema, Tenderness Additional comments: limited range of motion of bilateral lower extremities - Neurological Exam Neurological Exam: Alert, Awake, Oriented x3 Neuro motor strength exam: Left Upper Extremity: 4, Right Upper Extremity: 4, Left Lower Extremity: 4, Right Lower Extremity: 4 - Psychiatric Exam Psychiatric exam: Normal Affect, Normal Mood - Skin Skin Exam: Intact, Normal Color, Warm Assessment and Plan - Assessment and Plan (Free Text) Assessment: Bilateral Lower extremity and back Pain likely secondary to metastatic disease Patient continues to be emotional regarding his condition preventing him from being "functional" but understands more clearly status and seems agreeable to comfort care per discussion. Pain currently controlled with following: Morphine 1 mg IVP PRN for severe pain Continue Tramadol 50 mg po TID and Gabapentin 300 mg po TID Regular diet Normal Saline IV @100cc Zofran 4mg IVP Q6h PRN for nausea Venous dopplers negative Pain management on consult PT/OT Chest/Abd/Pelvis CT with po contrast (11/12/16): Stable appearing lobular pleural densities of both lung bases. Small nodules right lower lung base unchanged. Suspect new metastatic lesion within the right lobe liver. Hepatomegaly. Small cyst caudate lobe felt to be present. Splenomegaly. Sclerotic metastatic deposits within the pelvis sacrum of both hips, L2 segment and T7 segments. Status post cystectomy and prostatectomy with a right-sided ileal conduit and ileostomy right lower quadrant of the abdomen. 04/2016 PET Scan: revealed enlarged lymph nodes in lower abdomen left of aortic bifurcation demonstrates increased FG uptake and multiple osseous metastasis including T7, L2, pelvic bones bilaterally, and bilateral femurs (see full report) 02/2016 CT chest/abd/pelvis: No evidence of thoracic metastasis. Stable pleural plaques bilaterally. Several new mildly enlarged retroperitoneal lymph nodes are noted. Status post left nephrectomy and cystectomy with formation of ileal conduit (see full report) Poor Appetite Megace 40 mg po daily Consider starting PPN Continue Boosts TID Abdominal Pain Resolved. NG tube discontinued Abdomen X-Ray Flat plate: Dilated small and large bowel loops - distal colonic obstruction versus ileus. Follow-up recommended no upright views available to assess for any subdiaphragmatic free air Patient refused NG tube placement overnight but now agreeable. Patient currently NPO. General surgery, Dr. Arita, consulted. Help appreciated. Lactulose given. Pt had BM today. Nursing instructed to give chamomile tea enema if constipation persists Abdominal flat plate ordered Diet advanced as per surgery, pt on clear liquids C. diff Positive Continue Metronidazole 500 mg po q8h Discontinue Loperimide 2 mg po once stool studies sent Symptomatic Anemia Improved Continue to monitor H&H and plan to transfuse if hemoglobin continues to decrease Type and Cross Transfused pRBCs Heme/Onc consulted, Dr. 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 Billy Del Toro, help appreciated. Patient emotional regarding thought of chemotherapy. Urology consult: Dr. Richmond on board, help appreciated. Palliative Care Consult, Nellie Griffith, help appreciated. Per palliative care, family meeting scheduled for today to finalize code status. Patient and family aware of diagnosis and agree goal is for comfort care. Bob Ram is surrogate decision maker. Pyuria Afebrile urinalysis: color yellow, clarity clear, protein 4, leuk esterase 2+, WBC 20, Bacteria OccH Repeat urine culture: ESBL+ urine ID, Dr. Solomon, consulted. Help appreciated. Urine Culture (11/16/16): Enterococcus Faecalis Urine Culture (11/13/16): Klebsiella pneumoniae Discontinue Rocephin IV (started on 11/14/16) as patient is still spiking fever. Start Primaxin 500 mg IVPB q6h (11/16/16). Florastor 250mg PO BID Unstable Gait Physical therapist working with patient. Notes bed mobility, ADLs, transfers limited by constant pain. Gait continues to be impaired. Hemorrhoids Improved Anusol cream for symptomatic relief Prophylactic Measures Protonix 40 mg IVP daily Zofran 4 mg IVP Q6H PRN Tylenol 650 mg PO Q6H PRN Vanilla Boost TID for dietary supplement PT/OT Director Appointment referral Dispo Patient approved for hospice. <Melly Mendez V - Last Filed: 11/26/16 23:13> Objective - Vital Signs/Intake and Output Vital Signs (last 24 hours): Temp Pulse Resp BP Pulse Ox 99.2 F 87 20 129/66 97 11/26/16 16:00 11/26/16 16:00 11/26/16 16:00 11/26/16 16:00 11/26/16 16:00 Intake and Output: 11/26/16 11/27/16 18:59 06:59 Intake Total 575 Balance 575 - Medications Medications: Current Medications Acetaminophen (Tylenol 325mg Tab) 650 mg PO Q6 PRN PRN Reason: Fever >100.4 F, pain Last Admin: 11/23/16 18:00 Dose: 650 mg Gabapentin (Neurontin) 300 mg PO TID [facility] Last Admin: 11/26/16 17:18 Dose: 300 mg Hydrocortisone (Anusol-Hc) 0 gm MS BID [facility] Last Admin: 11/26/16 17:20 Dose: 1 applic Sodium Chloride (Sodium Chloride 0.9%) 1,000 mls @ 75 mls/hr IV .[id number] [facility] Last Admin: 11/26/16 12:23 Dose: 75 mls/hr Megestrol Acetate (Megace) 40 mg PO DAILY [facility] Last Admin: 11/26/16 10:28 Dose: 40 mg Metronidazole (Flagyl) 500 mg PO Q8H [facility] Last Admin: 11/26/16 21:18 Dose: 500 mg Morphine Sulfate (Morphine) 1 mg IVP Q4 PRN PRN Reason: Pain, severe (8-10) Last Admin: 11/26/16 00:19 Dose: 1 mg Ondansetron HCl (Zofran Inj) 4 mg IVP Q6 PRN PRN Reason: Nausea/Vomiting Last Admin: 11/26/16 10:19 Dose: 4 mg Pantoprazole Sodium (Protonix Ec Tab) 40 mg PO DAILY [facility] Last Admin: 11/26/16 10:28 Dose: 40 mg Saccharomyces Boulardii (Florastor) 250 mg PO BID [facility] Last Admin: 11/26/16 17:18 Dose: 250 mg Simethicone (Mylicon Chew Tab) 80 mg PO QID [facility] Last Admin: 11/26/16 21:18 Dose: 80 mg Tramadol HCl (Ultram) 50 mg PO TID [facility] Last Admin: 11/26/16 17:18 Dose: 50 mg Vancomycin HCl (Vancocin (Oral Or Rectal Use)) 250 mg PO QID [facility] Last Admin: 11/26/16 21:17 Dose: 250 mg - Labs Labs: 11/26/16 07:19 11/26/16 07:19 PT 15.8 SECONDS (9.7-12.2) H 11/13/16 11:08 INR 1.4 11/13/16 11:08 APTT 27 SECONDS (21-34) 11/13/16 11:08 Attending/Attestation - Attestation I have personally seen and examined this patient.: Yes I have fully participated in the care of the patient.: Yes I have reviewed all pertinent clinical information, including history, physical exam and plan: Yes Notes (Text): This is late computer entry for 11/25/16. Patient seen, examined and case discussed with day-time resident. Patient is C Dif + diarrhea, started on PO Flagyl, will need to monitor frequency of diarrhea to see if continues or improved. Patient is also VRE+ urine; infectious disease consult (Dr. Solomon), ordered for repeat urine culture. Patient is currently on contact isolation. Discussed with palliative care and case management for placement for hospice; discussed with extensively with at bedside with assistance with Ginger, case management regarding questions about hospice.
[2016-11-25 07:58] LABS: BASO # 0.1 K/uL (0.0-0.2); BASO % 0.8 % (0.0-2.0); EOS # 0.1 K/uL (0.0-0.7); EOS % 1.1 % (0.0-4.0); HEMATOCRIT 27.5 % (35.0-51.0); LYMPH # 1.3 K/uL (1.0-4.3); LYMPH % 9.9 % (20.0-40.0); MEAN CELL VOLUME 80.7 fL (80.0-94.0); MEAN CORPUSCULAR HEMOGLOBIN 25.6 pg (27.0-31.0); MEAN CORPUSCULAR HGB CONC 31.8 g/dL (33.0-37.0); MONO # 1.1 K/uL (0.0-0.8); MONO % 8.1 % (0.0-10.0); PLATELET COUNT 260 K/uL (130-400); RED CELL DISTRIBUTION WIDTH 16.3 % (11.5-14.5); WHITE BLOOD COUNT 13.2 K/uL (4.8-10.8)
[2016-11-25 09:17] LABS: EOSINOPHIL 1 % (0-4); NEUTROPHIL 86 % (50-75); TOTAL CELLS COUNTED 100
[2016-11-25 09:42] LABS: CHLORIDE 97 mmol/L (98-107)
[2016-11-25 09:43] LABS: POTASSIUM 4.1 mmol/L (3.6-5.2); SODIUM 130 mmol/L (132-148)
[2016-11-25 09:45] LABS: ALB/GLOB RATIO 0.8 (1.0-2.1); ALKALINE PHOSPHATASE 145 U/L (38-126); AST/SGOT 21 U/L (17-59); BILIRUBIN,TOTAL 0.6 mg/dL (0.2-1.3); BLOOD UREA NITROGEN 9 mg/dL (9-20); CARBON DIOXIDE 25 mmol/L (22-30); GFR AFRICAN-AMERICAN > 60; TOTAL PROTEIN 6.3 g/dL (6.3-8.3)
[2016-11-25 09:46] LABS: ALT/SGPT 20 U/L (21-72); CALCIUM 8.7 mg/dl (8.6-10.4); GLUCOSE,RANDOM 99 mg/dL (75-110); MAGNESIUM 1.8 mg/dL (1.6-2.3)
[2016-11-25] MEDS: Saccharomyces Boulardi 250 mg Cap PO SCH ×2 (10:29→17:32)
[2016-11-25] MEDS: Simethicone 80 mg Chewtab PO SCH ×4 (10:29→21:10)
[2016-11-25] MEDS: Pantoprazole 40 mg EC Tab PO SCH (10:30)
[2016-11-25] MEDS: Hydrocortisone 2.5% Rectal Cream(30 gm) PR SCH ×2 (10:32→18:00)
--- NOTE | 2016-11-25 15:39 | CP.PCM.PN ---
Subjective - Date & Time of Evaluation Date of Evaluation: 11/25/16 Time of Evaluation: 15:23 - Subjective Subjective: Patient's son Bob had questions regarding Code status and discharge planing. Objective - Vital Signs/Intake and Output Vital Signs (last 24 hours): Temp Pulse Resp BP Pulse Ox 98.6 F 92 H 20 120/69 96 11/24/16 16:00 11/24/16 16:00 11/24/16 16:00 11/24/16 16:00 11/24/16 16:00 Intake and Output: 11/25/16 11/25/16 06:59 18:59 Intake Total 300 450 Output Total 1600 1220 Balance -1300 -770 - Medications Medications: Current Medications Acetaminophen (Tylenol 325mg Tab) 650 mg PO Q6 PRN PRN Reason: Fever >100.4 F, pain Last Admin: 11/23/16 18:00 Dose: 650 mg Gabapentin (Neurontin) 300 mg PO TID [facility] Last Admin: 11/25/16 14:22 Dose: 300 mg Hydrocortisone (Anusol-Hc) 0 gm GA BID [facility] Last Admin: 11/25/16 10:32 Dose: 1 applic Imipenem/Cilastatin Sodium 500 (mg/ Sodium Chloride) 100 mls @ 100 mls/hr IVPB Q8H [facility] Last Admin: 11/25/16 14:21 Dose: 100 mls/hr Megestrol Acetate (Megace) 40 mg PO DAILY [facility] Last Admin: 11/25/16 10:30 Dose: 40 mg Metronidazole (Flagyl) 500 mg PO Q8H [facility] Last Admin: 11/25/16 12:06 Dose: 500 mg Morphine Sulfate (Morphine) 1 mg IVP Q4 PRN PRN Reason: Pain, severe (8-10) Last Admin: 11/24/16 21:58 Dose: 1 mg Ondansetron HCl (Zofran Inj) 4 mg IVP Q6 PRN PRN Reason: Nausea/Vomiting Last Admin: 11/24/16 09:35 Dose: 4 mg Pantoprazole Sodium (Protonix Ec Tab) 40 mg PO DAILY [facility] Last Admin: 11/25/16 10:30 Dose: 40 mg Saccharomyces Boulardii (Florastor) 250 mg PO BID [facility] Last Admin: 11/25/16 10:29 Dose: 250 mg Simethicone (Mylicon Chew Tab) 80 mg PO QID [facility] Last Admin: 11/25/16 14:23 Dose: 80 mg Tramadol HCl (Ultram) 50 mg PO TID [facility] Last Admin: 11/25/16 14:22 Dose: 50 mg - Labs Labs: 11/25/16 07:41 11/25/16 07:41 PT 15.8 SECONDS (9.7-12.2) H 11/13/16 11:08 INR 1.4 11/13/16 11:08 APTT 27 SECONDS (21-34) 11/13/16 11:08 - Constitutional Appears: Chronically Ill - Head Exam Head Exam: ATRAUMATIC, NORMAL INSPECTION, NORMOCEPHALIC - Eye Exam Eye Exam: Normal appearance, PERRL Pupil Exam: NORMAL ACCOMODATION - ENT Exam ENT Exam: Mucous Membranes Dry, Normal Exam - Neck Exam Neck Exam: Normal Inspection - Respiratory Exam Respiratory Exam: Decreased Breath Sounds, Clear to Ausculation Bilateral, NORMAL BREATHING PATTERN - Cardiovascular Exam Cardiovascular Exam: Bradycardia, REGULAR RHYTHM - GI/Abdominal Exam GI & Abdominal Exam: Normal Bowel Sounds - Rectal Exam Rectal Exam: Deferred - Extremities Exam Extremities Exam: Normal Capillary Refill, Normal Inspection - Back Exam Back Exam: NORMAL INSPECTION - Neurological Exam Neurological Exam: Alert, Oriented x3 Neuro motor strength exam: Left Upper Extremity: 3, Right Upper Extremity: 3, Left Lower Extremity: 2/1, Right Lower Extremity: 2/1 - Psychiatric Exam Psychiatric exam: Depressed - Skin Skin Exam: Pallor, Warm Assessment and Plan - Assessment and Plan (Free Text) Plan: Patient remains pale, with poor appetite and [id number] of pain to his thighs. Patient also complains of loose stool. The Urine and sputum cultures are positive. Primaxyn and Flagyl Iv on board. As per his son Bob, family reconsidered the plan of patient's going to [facility], as the place could not offer stay 04/01 for the patient' s . I discussed this with patient and he agrees to choices family makes for him. Patient wants to have his family near him all the time. As per our previous discussion when comfort care was discussed, one of the option was a home hospice. 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 Today, family and patient turned to that option. Once again I reviewed the meaning of hospice care at home and its services and family and patient agreed. Code status discussed as well and confirmed . I made Malika AVITIA and Saida Case management aware of. Impression * Patient and family are undecided about the discharge destination * The common goal for the family and patient is to be together * Patient consider comfort as his goal of care * Sputum and urine infection * Loose stool Suggestion * Comfort care at home would be the most beneficial level of care for this very sick patient * Would consider Probiotic as precaution of C diff
[2016-11-25 23:02] LABS: RBC URINE 4 /hpf (0-3); URINE BACTERIA OCC (<OCC); URINE BILIRUBIN NEGATIVE (NEGATIVE); URINE BLOOD NEGATIVE (NEGATIVE); URINE COLOR Yellow (YELLOW); URINE GLUCOSE (UA) NORMAL (Normal); URINE KETONE TRACE mg/dL (NEGATIVE); URINE PROTEIN NEGATIVE (NEGATIVE); URINE UROBILINOGEN NORMAL mg/dL (0.2-1.0); WBC URINE 56 /hpf (0-5)
[2016-11-25 23:04] LABS: URINE LEUKOCYTE ESTERASE 2+ Leu/uL (Negative)
--- NOTE | 2016-11-26 07:23 | CP.PCM.PN ---
<TataEri - Last Filed: 11/26/16 14:15> Subjective - Date & Time of Evaluation Date of Evaluation: 11/26/16 Time of Evaluation: 07:23 - Subjective Subjective: Patient seen and examined at bedside. Patient's family present at bedside. Per patient, he continued to have diarrhea since 2:30 AM and had a total of 8 episodes thus far. Patient is in tears at bedside and asking "to be cured" of infection. His family notes the patient is expelling a lot of energy with constantly having to use the bedside commode. Patient decided he does not want to be discharged to inpatient hospice and would prefer home hospice once his c. diff infection is treated. It was discussed with patient and family present that he will need to pay for his antibiotics if he is approved for home hospice. Patient otherwise denies chest pain, shortness of breath, nausea, and vomiting. He admits to subjective fever, abdominal pain/discomfort, and lower extremity pain. Objective - Vital Signs/Intake and Output Vital Signs (last 24 hours): Temp Pulse Resp BP Pulse Ox 99.5 F 85 20 123/64 96 11/26/16 00:59 11/26/16 00:59 11/26/16 00:59 11/26/16 00:59 11/26/16 00:59 Intake and Output: 11/26/16 11/26/16 06:59 18:59 Intake Total 350 Output Total 1100 Balance -750 - Medications Medications: Current Medications Acetaminophen (Tylenol 325mg Tab) 650 mg PO Q6 PRN PRN Reason: Fever >100.4 F, pain Last Admin: 11/23/16 18:00 Dose: 650 mg Gabapentin (Neurontin) 300 mg PO TID [facility] Last Admin: 11/25/16 17:30 Dose: 300 mg Hydrocortisone (Anusol-Hc) 0 gm [place] BID [facility] Last Admin: 11/25/16 18:00 Dose: 1 applic Imipenem/Cilastatin Sodium 500 (mg/ Sodium Chloride) 100 mls @ 100 mls/hr IVPB Q8H [facility] Last Admin: 11/26/16 06:56 Dose: 100 mls/hr Megestrol Acetate (Megace) 40 mg PO DAILY [facility] Last Admin: 11/25/16 10:30 Dose: 40 mg Metronidazole (Flagyl) 500 mg PO Q8H [facility] Last Admin: 11/26/16 05:21 Dose: 500 mg Morphine Sulfate (Morphine) 1 mg IVP Q4 PRN PRN Reason: Pain, severe (8-10) Last Admin: 11/26/16 00:19 Dose: 1 mg Ondansetron HCl (Zofran Inj) 4 mg IVP Q6 PRN PRN Reason: Nausea/Vomiting Last Admin: 11/24/16 09:35 Dose: 4 mg Pantoprazole Sodium (Protonix Ec Tab) 40 mg PO DAILY [facility] Last Admin: 11/25/16 10:30 Dose: 40 mg Saccharomyces Boulardii (Florastor) 250 mg PO BID [facility] Last Admin: 11/25/16 17:32 Dose: 250 mg Simethicone (Mylicon Chew Tab) 80 mg PO QID [facility] Last Admin: 11/25/16 21:10 Dose: 80 mg Tramadol HCl (Ultram) 50 mg PO TID [facility] Last Admin: 11/25/16 17:30 Dose: 50 mg - Labs Labs: 11/25/16 07:41 11/25/16 07:41 PT 15.8 SECONDS (9.7-12.2) H 11/13/16 11:08 INR 1.4 11/13/16 11:08 APTT 27 SECONDS (21-34) 11/13/16 11:08 - Constitutional Appears: Non-toxic, No Acute Distress, Chronically Ill - Head Exam Head Exam: ATRAUMATIC, NORMAL INSPECTION, NORMOCEPHALIC - Eye Exam Eye Exam: EOMI, Normal appearance - ENT Exam ENT Exam: Mucous Membranes Moist, Normal Exam - Neck Exam Neck Exam: Full ROM, Normal Inspection - Respiratory Exam Respiratory Exam: Clear to Ausculation Bilateral, NORMAL BREATHING PATTERN. absent: Rales, Rhonchi, Wheezes - Cardiovascular Exam Cardiovascular Exam: +S1, +S2. absent: Tachycardia - GI/Abdominal Exam GI & Abdominal Exam: Soft, Tenderness, Normal Bowel Sounds. absent: Firm, Rigid - Back Exam Back Exam: NORMAL INSPECTION - Neurological Exam Neurological Exam: Alert, Awake, Oriented x3 Neuro motor strength exam: Left Upper Extremity: 4, Right Upper Extremity: 4, Left Lower Extremity: 4, Right Lower Extremity: 4 - Psychiatric Exam Psychiatric exam: Normal Affect, Normal Mood - Skin Skin Exam: Normal Color, Warm Assessment and Plan - Assessment and Plan (Free Text) Assessment: Bilateral Lower extremity and back Pain likely secondary to metastatic disease Patient continues to be emotional regarding his condition preventing him from being "functional" but understands more clearly status and seems agreeable to comfort care per discussion. Pain currently controlled with following: Morphine 1 mg IVP PRN for severe pain Continue Tramadol 50 mg po TID and Gabapentin 300 mg po TID Regular diet Normal Saline IV @100cc Zofran 4mg IVP Q6h PRN for nausea Venous dopplers negative Pain management on consult PT/OT Chest/Abd/Pelvis CT with po contrast (11/12/16): Stable appearing lobular pleural densities of both lung bases. Small nodules right lower lung base unchanged. Suspect new metastatic lesion within the right lobe liver. Hepatomegaly. Small cyst caudate lobe felt to be present. Splenomegaly. Sclerotic metastatic deposits within the pelvis sacrum of both hips, L2 segment and T7 segments. Status post cystectomy and prostatectomy with a right-sided ileal conduit and ileostomy right lower quadrant of the abdomen. 04/2016 PET Scan: revealed enlarged lymph nodes in lower abdomen left of aortic bifurcation demonstrates increased FG uptake and multiple osseous metastasis including T7, L2, pelvic bones bilaterally, and bilateral femurs (see full report) 02/2016 CT chest/abd/pelvis: No evidence of thoracic metastasis. Stable pleural plaques bilaterally. Several new mildly enlarged retroperitoneal lymph nodes are noted. Status post left nephrectomy and cystectomy with formation of ileal conduit (see full report) Poor Appetite Megace 40 mg po daily Consider starting PPN Continue Boosts TID Abdominal Pain Present secondary to c.diff infection NG tube discontinued. Obstruction resolved. Abdomen X-Ray Flat plate: Dilated small and large bowel loops - distal colonic obstruction versus ileus. Follow-up recommended no upright views available to assess for any subdiaphragmatic free air Patient refused NG tube placement overnight but now agreeable. Patient currently NPO. General surgery, Dr. Arita, consulted. Help appreciated. Lactulose given. Pt had BM today. Nursing instructed to give chamomile tea enema if constipation persists Abdominal flat plate ordered Diet advanced as per surgery, pt on clear liquids C. diff Positive Pt still complaining of diarrhea Start Vancocin 125 mg po QID Continue Metronidazole 500 mg po q8h Symptomatic Anemia Improved Continue to monitor H&H and plan to transfuse if hemoglobin continues to decrease Type and Cross Transfused pRBCs Heme/Onc consulted, Dr. 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 Billy Del Toro, help appreciated. Patient emotional regarding thought of chemotherapy. Urology consult: Dr. Richmond on board, help appreciated. Palliative Care Consult, Nellie Griffith, help appreciated. Code status DNR/ DNI. Patient and family aware of diagnosis and agree goal is for comfort care. Bob Ram is surrogate decision maker. Pyuria Afebrile Urine Culture (11/23/16): VRE+ Repeat urine culture sent by Dr. Solomon. Will follow-up. urinalysis: color yellow, clarity clear, protein 4, leuk esterase 2+, WBC 20, Bacteria OccH ID, Dr. Solomon, consulted. Help appreciated. Urine Culture (11/16/16): Enterococcus Faecalis Urine Culture (11/13/16): Klebsiella pneumoniae Discontinue Rocephin IV (started on 11/14/16) as patient is still spiking fever. Start Primaxin 500 mg IVPB q6h (11/16/16). Florastor 250mg PO BID Unstable Gait Physical therapist working with patient. Notes bed mobility, ADLs, transfers limited by constant pain. Gait continues to be impaired. Hemorrhoids Improved Anusol cream for symptomatic relief Prophylactic Measures Protonix 40 mg IVP daily Zofran 4 mg IVP Q6H PRN Tylenol 650 mg PO Q6H PRN Vanilla Boost TID for dietary supplement PT/OT Drill Punch Operator referral Dispo Case Management consult for home hospice <Melly Mendez V - Last Filed: 11/26/16 23:09> Objective - Vital Signs/Intake and Output Vital Signs (last 24 hours): Temp Pulse Resp BP Pulse Ox 99.2 F 87 20 129/66 97 11/26/16 16:00 11/26/16 16:00 11/26/16 16:00 11/26/16 16:00 11/26/16 16:00 Intake and Output: 11/26/16 11/27/16 18:59 06:59 Intake Total 575 Balance 575 - Medications Medications: Current Medications Acetaminophen (Tylenol 325mg Tab) 650 mg PO Q6 PRN PRN Reason: Fever >100.4 F, pain Last Admin: 11/23/16 18:00 Dose: 650 mg Gabapentin (Neurontin) 300 mg PO TID [facility] Last Admin: 11/26/16 17:18 Dose: 300 mg Hydrocortisone (Anusol-Hc) 0 gm [place] BID [facility] Last Admin: 11/26/16 17:20 Dose: 1 applic Sodium Chloride (Sodium Chloride 0.9%) 1,000 mls @ 75 mls/hr IV .[id number] [facility] Last Admin: 11/26/16 12:23 Dose: 75 mls/hr Megestrol Acetate (Megace) 40 mg PO DAILY [facility] Last Admin: 11/26/16 10:28 Dose: 40 mg Metronidazole (Flagyl) 500 mg PO Q8H [facility] Last Admin: 11/26/16 21:18 Dose: 500 mg Morphine Sulfate (Morphine) 1 mg IVP Q4 PRN PRN Reason: Pain, severe (8-10) Last Admin: 11/26/16 00:19 Dose: 1 mg Ondansetron HCl (Zofran Inj) 4 mg IVP Q6 PRN PRN Reason: Nausea/Vomiting Last Admin: 11/26/16 10:19 Dose: 4 mg Pantoprazole Sodium (Protonix Ec Tab) 40 mg PO DAILY [facility] Last Admin: 11/26/16 10:28 Dose: 40 mg Saccharomyces Boulardii (Florastor) 250 mg PO BID [facility] Last Admin: 11/26/16 17:18 Dose: 250 mg Simethicone (Mylicon Chew Tab) 80 mg PO QID [facility] Last Admin: 11/26/16 21:18 Dose: 80 mg Tramadol HCl (Ultram) 50 mg PO TID [facility] Last Admin: 11/26/16 17:18 Dose: 50 mg Vancomycin HCl (Vancocin (Oral Or Rectal Use)) 250 mg PO QID [facility] Last Admin: 11/26/16 21:17 Dose: 250 mg - Labs Labs: 11/26/16 07:19 11/26/16 07:19 PT 15.8 SECONDS (9.7-12.2) H 11/13/16 11:08 INR 1.4 11/13/16 11:08 APTT 27 SECONDS (21-34) 11/13/16 11:08 Attending/Attestation - Attestation I have personally seen and examined this patient.: Yes I have fully participated in the care of the patient.: Yes I have reviewed all pertinent clinical information, including history, physical exam and plan: Yes Notes (Text): Patient seen, examined and case discussed with day-time resident. Patient reports frequent diarrhea today which is causing him discomfort. per his polst, antibiotics for symptomatic care. Patient started on Vancomycin PO QID for added treatment for C. Diff diarrhea. Discussed with infectious disease, f/u urine culture which was collected to determine treatment for VRE. Discussed with family (son and ) present with case management, patient has chosen for home hospice and was evaluated. If patient requires antibiotics, they do understand they will need to pay out of pocket for those expenses. Patient reports lack of appetite he is on Megace and may consider Remeron to stimulate appetite. Patient started on IV fluids given his frequency diarrhea. Disposition: * symptomatic relief from diarrheal infection; will need to monitor if diarrhea is abated with added antibiotics and f/u urine culture; patient does not want to go home without his infections not treated * Home hospice evaluation conducted today; will need to f/u with case management and social regarding status
[2016-11-26 07:39] LABS: BASO % 0.3 % (0.0-2.0); EOS # 0.1 K/uL (0.0-0.7); EOS % 1.2 % (0.0-4.0); HEMATOCRIT 27.9 % (35.0-51.0); LYMPH # 1.3 K/uL (1.0-4.3); LYMPH % 11.2 % (20.0-40.0); MEAN CELL VOLUME 80.5 fL (80.0-94.0); MEAN CORPUSCULAR HEMOGLOBIN 25.1 pg (27.0-31.0); MEAN CORPUSCULAR HGB CONC 31.2 g/dL (33.0-37.0); MEAN PLATELET VOLUME 7.9 fL (7.2-11.7); MONO # 0.8 K/uL (0.0-0.8); MONO % 6.4 % (0.0-10.0); RED CELL DISTRIBUTION WIDTH 16.5 % (11.5-14.5); WHITE BLOOD COUNT 12.1 K/uL (4.8-10.8)
[2016-11-26 07:40] LABS: CHLORIDE 96 mmol/L (98-107); SODIUM 130 mmol/L (132-148)
[2016-11-26 07:41] LABS: POTASSIUM 3.9 mmol/L (3.6-5.2)
[2016-11-26 07:43] LABS: ALKALINE PHOSPHATASE 151 U/L (38-126); AST/SGOT 19 U/L (17-59); BILIRUBIN,TOTAL 0.6 mg/dL (0.2-1.3); BLOOD UREA NITROGEN 10 mg/dL (9-20); CARBON DIOXIDE 24 mmol/L (22-30); GFR AFRICAN-AMERICAN > 60; GLUCOSE,RANDOM 99 mg/dL (75-110); TOTAL PROTEIN 6.1 g/dL (6.3-8.3)
[2016-11-26 07:44] LABS: ALT/SGPT 18 U/L (21-72); CALCIUM 8.4 mg/dl (8.6-10.4); MAGNESIUM 1.8 mg/dL (1.6-2.3)
[2016-11-26 08:11] LABS: ALB/GLOB RATIO 0.8 (1.0-2.1)
[2016-11-26] MEDS: Simethicone 80 mg Chewtab PO SCH ×4 (10:20→21:18)
[2016-11-26] MEDS: Saccharomyces Boulardi 250 mg Cap PO SCH ×2 (10:21→17:18)
[2016-11-26] MEDS: Pantoprazole 40 mg EC Tab PO SCH (10:28)
[2016-11-26] MEDS: Hydrocortisone 2.5% Rectal Cream(30 gm) PR SCH ×2 (10:45→17:20)
[2016-11-26] MEDS: Sodium Chloride 0.9% 1,000 ML IV SCH (12:23)
[2016-11-26] MEDS: Vancomycin 125 MG/5 ML SOLN (ORAL/RECTAL) PO SCH ×4 (12:30→21:17)
--- NOTE | 2016-11-26 15:28 | CP.PCM.PN ---
Subjective - Date & Time of Evaluation Date of Evaluation: 11/26/16 Time of Evaluation: 03:15 - Subjective Subjective: dICTATED Objective - Vital Signs/Intake and Output Vital Signs (last 24 hours): Temp Pulse Resp BP Pulse Ox 98.6 F 81 20 112/70 97 11/26/16 07:47 11/26/16 07:47 11/26/16 07:47 11/26/16 07:47 11/26/16 07:47 Intake and Output: 11/26/16 11/26/16 06:59 18:59 Intake Total 350 575 Output Total 1100 Balance -750 575 - Medications Medications: Current Medications Acetaminophen (Tylenol 325mg Tab) 650 mg PO Q6 PRN PRN Reason: Fever >100.4 F, pain Last Admin: 11/23/16 18:00 Dose: 650 mg Gabapentin (Neurontin) 300 mg PO TID [facility] Last Admin: 11/26/16 10:29 Dose: 300 mg Hydrocortisone (Anusol-Hc) 0 gm [place] BID [facility] Last Admin: 11/26/16 10:45 Dose: 1 applic Sodium Chloride (Sodium Chloride 0.9%) 1,000 mls @ 75 mls/hr IV .[id number] [facility] Last Admin: 11/26/16 12:23 Dose: 75 mls/hr Megestrol Acetate (Megace) 40 mg PO DAILY [facility] Last Admin: 11/26/16 10:28 Dose: 40 mg Metronidazole (Flagyl) 500 mg PO Q8H [facility] Last Admin: 11/26/16 12:30 Dose: 500 mg Morphine Sulfate (Morphine) 1 mg IVP Q4 PRN PRN Reason: Pain, severe (8-10) Last Admin: 11/26/16 00:19 Dose: 1 mg Ondansetron HCl (Zofran Inj) 4 mg IVP Q6 PRN PRN Reason: Nausea/Vomiting Last Admin: 11/26/16 10:19 Dose: 4 mg Pantoprazole Sodium (Protonix Ec Tab) 40 mg PO DAILY [facility] Last Admin: 11/26/16 10:28 Dose: 40 mg Saccharomyces Boulardii (Florastor) 250 mg PO BID [facility] Last Admin: 11/26/16 10:21 Dose: 250 mg Simethicone (Mylicon Chew Tab) 80 mg PO QID [facility] Last Admin: 11/26/16 10:20 Dose: 80 mg Tramadol HCl (Ultram) 50 mg PO TID [facility] Last Admin: 11/26/16 10:28 Dose: 50 mg Vancomycin HCl (Vancocin (Oral Or Rectal Use)) 250 mg PO QID [facility] - Labs Labs: 11/26/16 07:19 11/26/16 07:19 PT 15.8 SECONDS (9.7-12.2) H 11/13/16 11:08 INR 1.4 11/13/16 11:08 APTT 27 SECONDS (21-34) 11/13/16 11:08
--- NOTE | 2016-11-26 19:18 | CON ---
DATE: 11/26/2016 HISTORY OF PRESENT ILLNESS: This patient was admitted on 11/12. I am asked to evaluate him because sandy ryan has abnormal urine infection at this time and he also has Clostridium difficile colitis. He has be en here from 11/12, today is 11/26. He is a 71-year-old with history of bladder cancer with mets, st atus post nephrectomy, urostomy, was admitted with diarrhea and was treated with IV antibiotics and n ow has C. diff. His last urine culture, I am told, is positive for VRE, which came out on 11/24, but he has a urostomy present and patient is having multiple bouts of diarrhea. He is still sitting on t he commode. The is at the bedside who is concerned about privacy and does not let me examine hi m much. He has a history of bladder cancer with nephrectomy and urostomy. ALLERGIES: He is not allergic to any medicine. FAMILY HISTORY: Negative. SOCIAL HISTORY: He quit smoking 41 years ago, he smoked half pack for 20 years. Most of the history is taken from the chart. REVIEW OF SYSTEMS: I looked over the review of systems. MEDICATIONS: He is on Tylenol, gabapentin, Megace. He is on Flagyl p.o. and today only they started vancomycin. For the vancomycin, I would change the dose to 250 q.i.d. as that may be more helpful i n getting rid of diarrhea in a patient who is having Clostridium difficile colitis and he is having f requent bowel movements at this time, as he is on the commode right now and had 8 BMs yesterday, I am told. Also, he may benefit with Bacid. He is already on Flagyl, so will add Bacid also and Bacid o rdered. He is already on lactobacillus actually. PHYSICAL EXAMINATION: VITAL SIGNS: On brief exam, I find he is afebrile, temperature is 98.6, pulse 81, blood pressure 112 /70, respirations are 20. HEENT: Head is atraumatic, normocephalic. NECK: Supple. LUNGS: Clear. No crackles or rales present. HEART: S1, S2 is regular. ABDOMEN: Soft, nontender. EXTREMITIES: No edema, clubbing or cyanosis. GENITOURINARY: He does have a urostomy, but I am unable to evaluate it as he is not letting me exami ne, being on the commode at this time. If this urine culture has VRE from the urostomy tube, he may have it, as it gets colonized frequently. Suggest at this time to just treat the Clostridium difficile colitis as he seems to be having more tr ouble with that problem and would hold off on treating with any other antibiotics at this time. Also he is awaiting repeated the culture yesterday. We will follow that. However, if it is from t he urostomy, it may contain bacteria anyway. He does have cancer and family is looking into their op tions. Bernard Solomon MD cc: [id number] TT: 11/26/2016 19:17:35 Confirmation # [id number] Dictation # [id number] saida
[2016-11-27 00:02] VITALS: O2SAT 96
[2016-11-27] MEDS: Sodium Chloride 0.9% 1,000 ML IV SCH ×3 (03:04→14:15)
--- NOTE | 2016-11-27 07:03 | CP.PCM.PN ---
Subjective - Date & Time of Evaluation Date of Evaluation: 11/27/16 Time of Evaluation: 07:02 Objective - Vital Signs/Intake and Output Vital Signs (last 24 hours): Temp Pulse Resp BP Pulse Ox 98.2 F 87 20 114/63 96 11/27/16 00:00 11/27/16 00:00 11/27/16 00:00 11/27/16 00:00 11/27/16 00:00 Intake and Output: 11/27/16 11/27/16 06:59 18:59 Intake Total 840 Output Total 1100 Balance -260 - Medications Medications: Current Medications Acetaminophen (Tylenol 325mg Tab) 650 mg PO Q6 PRN PRN Reason: Fever >100.4 F, pain Last Admin: 11/23/16 18:00 Dose: 650 mg Gabapentin (Neurontin) 300 mg PO TID [facility] Last Admin: 11/26/16 17:18 Dose: 300 mg Hydrocortisone (Anusol-Hc) 0 gm [place] BID [facility] Last Admin: 11/26/16 17:20 Dose: 1 applic Sodium Chloride (Sodium Chloride 0.9%) 1,000 mls @ 75 mls/hr IV .[id number] [facility] Last Admin: 11/27/16 04:09 Dose: 75 mls/hr Megestrol Acetate (Megace) 40 mg PO DAILY [facility] Last Admin: 11/26/16 10:28 Dose: 40 mg Metronidazole (Flagyl) 500 mg PO Q8H [facility] Last Admin: 11/27/16 04:08 Dose: 500 mg Morphine Sulfate (Morphine) 1 mg IVP Q4 PRN PRN Reason: Pain, severe (8-10) Last Admin: 11/27/16 04:07 Dose: 1 mg Ondansetron HCl (Zofran Inj) 4 mg IVP Q6 PRN PRN Reason: Nausea/Vomiting Last Admin: 11/26/16 10:19 Dose: 4 mg Pantoprazole Sodium (Protonix Ec Tab) 40 mg PO DAILY [facility] Last Admin: 11/26/16 10:28 Dose: 40 mg Saccharomyces Boulardii (Florastor) 250 mg PO BID [facility] Last Admin: 11/26/16 17:18 Dose: 250 mg Simethicone (Mylicon Chew Tab) 80 mg PO QID [facility] Last Admin: 11/26/16 21:18 Dose: 80 mg Tramadol HCl (Ultram) 50 mg PO TID [facility] Last Admin: 11/26/16 17:18 Dose: 50 mg Vancomycin HCl (Vancocin (Oral Or Rectal Use)) 250 mg PO QID [facility] Last Admin: 11/26/16 21:17 Dose: 250 mg - Labs Labs: 11/26/16 07:19 11/26/16 07:19 PT 15.8 SECONDS (9.7-12.2) H 11/13/16 11:08 INR 1.4 11/13/16 11:08 APTT 27 SECONDS (21-34) 11/13/16 11:08 Assessment and Plan - Assessment and Plan (Free Text) Assessment: Bilateral Lower extremity and back Pain likely secondary to metastatic disease Patient continues to be emotional regarding his condition preventing him from being "functional" but understands more clearly status and seems agreeable to comfort care per discussion. Pain currently controlled with following: Morphine 1 mg IVP PRN for severe pain Continue Tramadol 50 mg po TID and Gabapentin 300 mg po TID Regular diet Normal Saline IV @100cc Zofran 4mg IVP Q6h PRN for nausea Venous dopplers negative Pain management on consult PT/OT Chest/Abd/Pelvis CT with po contrast (11/12/16): Stable appearing lobular pleural densities of both lung bases. Small nodules right lower lung base unchanged. Suspect new metastatic lesion within the right lobe liver. Hepatomegaly. Small cyst caudate lobe felt to be present. Splenomegaly. Sclerotic metastatic deposits within the pelvis sacrum of both hips, L2 segment and T7 segments. Status post cystectomy and prostatectomy with a right-sided ileal conduit and ileostomy right lower quadrant of the abdomen. 04/2016 PET Scan: revealed enlarged lymph nodes in lower abdomen left of aortic bifurcation demonstrates increased FG uptake and multiple osseous metastasis including T7, L2, pelvic bones bilaterally, and bilateral femurs (see full report) 02/2016 CT chest/abd/pelvis: No evidence of thoracic metastasis. Stable pleural plaques bilaterally. Several new mildly enlarged retroperitoneal lymph nodes are noted. Status post left nephrectomy and cystectomy with formation of ileal conduit (see full report) Poor Appetite Megace 40 mg po daily Consider starting PPN Continue Boosts TID Abdominal Pain Present secondary to c.diff infection NG tube discontinued. Obstruction resolved. Abdomen X-Ray Flat plate: Dilated small and large bowel loops - distal colonic obstruction versus ileus. Follow-up recommended no upright views available to assess for any subdiaphragmatic free air Patient refused NG tube placement overnight but now agreeable. Patient currently NPO. General surgery, Dr. Arita, consulted. Help appreciated. Lactulose given. Pt had BM today. Nursing instructed to give chamomile tea enema if constipation persists Abdominal flat plate ordered Diet advanced as per surgery, pt on clear liquids C. diff Positive Pt still complaining of diarrhea Start Vancocin 125 mg po QID Continue Metronidazole 500 mg po q8h Symptomatic Anemia Improved Continue to monitor H&H and plan to transfuse if hemoglobin continues to decrease Type and Cross Transfused pRBCs Heme/Onc consulted, Dr. 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 Billy Del Toro, help appreciated. Patient emotional regarding thought of chemotherapy. Urology consult: Dr. Richmond on board, help appreciated. Palliative Care Consult, Nellie Griffith, help appreciated. Code status DNR/ DNI. Patient and family aware of diagnosis and agree goal is for comfort care. SonBob is surrogate decision maker. Pyuria Afebrile Urine Culture (11/23/16): VRE+ Repeat urine culture sent by Dr. Solomon. Will follow-up. urinalysis: color yellow, clarity clear, protein 4, leuk esterase 2+, WBC 20, Bacteria OccH ID, Dr. Solomon, consulted. Help appreciated. Urine Culture (11/16/16): Enterococcus Faecalis Urine Culture (11/13/16): Klebsiella pneumoniae Discontinue Rocephin IV (started on 11/14/16) as patient is still spiking fever. Start Primaxin 500 mg IVPB q6h (11/16/16). Florastor 250mg PO BID Unstable Gait Physical therapist working with patient. Notes bed mobility, ADLs, transfers limited by constant pain. Gait continues to be impaired. Hemorrhoids Improved Anusol cream for symptomatic relief Prophylactic Measures Protonix 40 mg IVP daily Zofran 4 mg IVP Q6H PRN Tylenol 650 mg PO Q6H PRN Vanilla Boost TID for dietary supplement PT/OT Casino Supervisor referral
[2016-11-27 07:31] LABS: BASO % 0.3 % (0.0-2.0); EOS # 0.1 K/uL (0.0-0.7); HEMATOCRIT 25.2 % (35.0-51.0); LYMPH # 1.4 K/uL (1.0-4.3); LYMPH % 11.7 % (20.0-40.0); MEAN CELL VOLUME 80.1 fL (80.0-94.0); MEAN CORPUSCULAR HGB CONC 32.4 g/dL (33.0-37.0); MEAN PLATELET VOLUME 7.7 fL (7.2-11.7); MONO # 0.8 K/uL (0.0-0.8); MONO % 6.9 % (0.0-10.0); RED CELL DISTRIBUTION WIDTH 16.2 % (11.5-14.5); WHITE BLOOD COUNT 11.6 K/uL (4.8-10.8)
[2016-11-27 07:39] LABS: CHLORIDE 100 mmol/L (98-107)
[2016-11-27 07:40] LABS: POTASSIUM 3.6 mmol/L (3.6-5.2); SODIUM 131 mmol/L (132-148)
[2016-11-27 07:42] LABS: GFR AFRICAN-AMERICAN > 60
[2016-11-27 07:43] LABS: ALB/GLOB RATIO 0.8 (1.0-2.1); ALKALINE PHOSPHATASE 142 U/L (38-126); ALT/SGPT 15 U/L (21-72); AST/SGOT 14 U/L (17-59); BILIRUBIN,TOTAL 0.5 mg/dL (0.2-1.3); BLOOD UREA NITROGEN 8 mg/dL (9-20); CALCIUM 8.4 mg/dl (8.6-10.4); CARBON DIOXIDE 23 mmol/L (22-30); GLUCOSE,RANDOM 94 mg/dL (75-110); TOTAL PROTEIN 5.9 g/dL (6.3-8.3)
[2016-11-27 07:44] LABS: MAGNESIUM 1.7 mg/dL (1.6-2.3)
[2016-11-27] MEDS: Vancomycin 125 MG/5 ML SOLN (ORAL/RECTAL) PO SCH ×2 (10:19→14:07)
[2016-11-27] MEDS: Simethicone 80 mg Chewtab PO SCH ×2 (10:20→14:05)
[2016-11-27] MEDS: Saccharomyces Boulardi 250 mg Cap PO SCH (10:20)
[2016-11-27] MEDS: Hydrocortisone 2.5% Rectal Cream(30 gm) PR SCH (10:29)
[2016-11-27] MEDS: Pantoprazole 40 mg EC Tab PO SCH (10:32)
[2016-11-27 10:51] VITALS: BP 128/64; PULSE 86; TEMP 97.5
[2016-11-27] MEDS ORDERED: DiphenhydrAMINE 50 mg/ml Inj ONE (15:12)
[2016-11-27] MEDS ORDERED: DiphenhydrAMINE 50 mg/ml Inj IVP STA (15:16)
[2016-11-27] MEDS ORDERED: DiphenhydrAMINE 50 mg/ml Inj IVP ONE (15:30)
--- NOTE | 2016-11-27 19:00 | CP.PCM.DIS ---
Provider - Provider Date of Admission: 11/13/16 16:23 Attending physician: Melly Mendez DO Consults: Surgery - Juan J Hemjaison - [place] ID - Neha [facility] - Acosta Richmond Time Spent in preparation of Discharge (in minutes): 45 Diagnosis - Discharge Diagnosis (1) C. difficile colitis Status: Acute (2) VRE (vancomycin resistant enterococcus) culture positive Status: Acute (3) Bowel obstruction Status: Acute (4) Symptomatic anemia Status: Acute (5) Poor appetite Status: Acute (6) Enterococcus faecalis infection Status: Acute (7) Unstable gait Status: Acute (8) Acute hemorrhoid Status: Acute (9) Bilateral lower extremity pain Status: Acute (10) Acute kidney injury Status: Acute (11) Bladder cancer Status: Chronic (12) Bone metastases Status: Chronic Hospital Course - Lab Results Lab Results: Micro Results 11/25/16 20:08 Urine Urine Culture - Preliminary Gram Positive Cocci 11/24/16 06:00 Stool Stool Culture - Final NO SALMONELLA, SHIGELLA OR CAMPYLOBACTER ISOLATED. 11/23/16 Unknown Urine Urine Culture - Final Vancomycin Resistant E.faecium 11/23/16 Unknown Sputum Gram Stain - Final 11/23/16 Unknown Sputum Sputum Culture - Final Yeast Species 11/16/16 03:50 Blood-Venous Blood Culture - Final NO GROWTH AFTER 5 DAYS 11/16/16 03:50 Blood-Venous Gram Stain - Final TEST NOT PERFORMED 11/16/16 04:20 Blood Blood Culture - Final NO GROWTH AFTER 5 DAYS 11/16/16 04:20 Blood Gram Stain - Final TEST NOT PERFORMED 11/20/16 Unknown Urine,Clean Catch Urine Culture - Final No Growth (<1,000 CFU/ML) 11/16/16 03:56 Urine,Clean Catch Urine Culture - Final Enterococcus Faecalis 11/13/16 Unknown Urine Urine Culture - Final Klebsiella Pneumoniae Ssp Pneu Most Recent Lab Values WBC 11.6 K/uL (4.8-10.8) H 11/27/16 07:16 RBC 3.15 Mil/uL (4.40-5.90) L 11/27/16 07:16 Hgb 8.2 g/dL (12.0-18.0) L 11/27/16 07:16 Hct 25.2 % (35.0-51.0) L 11/27/16 07:16 MCV 80.1 fL (80.0-94.0) 11/27/16 07:16 MCH 26.0 pg (27.0-31.0) L 11/27/16 07:16 MCHC 32.4 g/dL (33.0-37.0) L 11/27/16 07:16 RDW 16.2 % (11.5-14.5) H 11/27/16 07:16 Plt Count 273 K/uL (130-400) 11/27/16 07:16 MPV 7.7 fL (7.2-11.7) 11/27/16 07:16 Neut % (Auto) 80.1 % (50.0-75.0) H 11/27/16 07:16 Lymph % (Auto) 11.7 % (20.0-40.0) L 11/27/16 07:16 [place] % (Auto) 6.9 % (0.0-10.0) 11/27/16 07:16 Eos % (Auto) 1.0 % (0.0-4.0) 11/27/16 07:16 Baso % (Auto) 0.3 % (0.0-2.0) 11/27/16 07:16 Neut # 9.3 K/uL (1.8-7.0) H 11/27/16 07:16 Lymph # 1.4 K/uL (1.0-4.3) 11/27/16 07:16 [place] # 0.8 K/uL (0.0-0.8) 11/27/16 07:16 Eos # 0.1 K/uL (0.0-0.7) 11/27/16 07:16 Baso # 0.0 K/uL (0.0-0.2) 11/27/16 07:16 Neutrophils % (Manual) 86 % (50-75) H 11/25/16 07:41 Band Neutrophils % 2 % (0-2) 11/23/16 11:12 Lymphocytes % (Manual) 6 % (20-40) L 11/25/16 07:41 Reactive Lymphs % 1 % (0-0) H 11/18/16 07:49 Monocytes % (Manual) 7 % (0-10) 11/25/16 07:41 Eosinophils % (Manual) 1 % (0-4) 11/25/16 07:41 Basophils % (Manual) 2 % (0-2) 11/22/16 07:00 Toxic Granulation Present 11/17/16 08:30 Platelet Estimate Normal (NORMAL) 11/25/16 07:41 Polychromasia Slight 11/24/16 06:18 Hypochromasia (manual) Slight 11/25/16 07:41 Poikilocytosis (manual Slight 11/17/16 08:30 Basophilic Stippling Slight 11/18/16 07:49 Anisocytosis (manual) Slight 11/25/16 07:41 Microcytosis (manual) Slight 11/20/16 14:36 Ovalocytes Slight 11/22/16 07:00 Retic Count 1.8 % (0.5-1.5) H 11/15/16 07:56 PT 15.8 SECONDS (9.7-12.2) H 11/13/16 11:08 INR 1.4 11/13/16 11:08 APTT 27 SECONDS (21-34) 11/13/16 11:08 Sodium 131 mmol/L (132-148) L 11/27/16 07:16 Potassium 3.6 mmol/L (3.6-5.2) 11/27/16 07:16 Chloride 100 mmol/L (98-107) 11/27/16 07:16 Carbon Dioxide 23 mmol/L (22-30) 11/27/16 07:16 Anion Gap 12 (10-20) 11/27/16 07:16 BUN 8 mg/dL (9-20) L 11/27/16 07:16 Creatinine 0.6 MG/DL (0.8-1.5) L 11/27/16 07:16 Est GFR ( Amer) > 60 11/27/16 07:16 Est GFR (Non-Af Amer) > 60 11/27/16 07:16 POC Glucose (mg/dL) 122 mg/dL (65-110) H 11/27/16 11:14 Random Glucose 94 mg/dL (75-110) 11/27/16 07:16 Calcium 8.4 mg/dl (8.6-10.4) L 11/27/16 07:16 Phosphorus 3.5 mg/dL (2.5-4.5) 11/22/16 07:00 Magnesium 1.7 mg/dL (1.6-2.3) 11/27/16 07:16 Ferritin 262.0 ng/mL 11/15/16 07:56 Total Bilirubin 0.5 mg/dL (0.2-1.3) 11/27/16 07:16 AST 14 U/L (17-59) L D 11/27/16 07:16 ALT 15 U/L (21-72) L 11/27/16 07:16 Alkaline Phosphatase 142 U/L (38-126) H 11/27/16 07:16 Total Creatine Kinase 32 U/L (55-170) L 11/13/16 19:42 Total Protein 5.9 g/dL (6.3-8.3) L 11/27/16 07:16 Albumin 2.6 g/dL (3.5-5.0) L 11/27/16 07:16 Globulin 3.3 gm/dL (2.2-3.9) 11/27/16 07:16 Albumin/Globulin Ratio 0.8 (1.0-2.1) L 11/27/16 07:16 Vitamin B12 807 pg/mL (239-931) 11/15/16 07:56 Folate 12.6 ng/mL 11/15/16 07:56 Urine Color Yellow (YELLOW) 11/25/16 22:43 Urine Clarity Clear (Clear) 11/25/16 22:43 Urine pH 6.0 (5.0-8.0) 11/25/16 22:43 Ur Specific [place] 1.016 (1.003-1.030) 11/25/16 22:43 Urine Protein Negative mg/dL (NEGATIVE) 11/25/16 22:43 Urine Glucose (UA) Normal mg/dL (Normal) 11/25/16 22:43 Urine Ketones Trace mg/dL (NEGATIVE) 11/25/16 22:43 Urine Blood Negative (NEGATIVE) 11/25/16 22:43 Urine Nitrate Negative (NEGATIVE) 11/25/16 22:43 Urine Bilirubin Negative (NEGATIVE) 11/25/16 22:43 Urine Urobilinogen Normal mg/dL (0.2-1.0) 11/25/16 22:43 Ur Leukocyte Esterase 2+ Nixon/uL (Negative) H 11/25/16 22:43 Urine WBC (Auto) 56 /hpf (0-5) H 11/25/16 22:43 Urine RBC (Auto) 4 /hpf (0-3) H 11/25/16 22:43 Urine Bacteria Occ (<OCC) H 11/25/16 22:43 Stool Leukocytes, Qual Negative (NEGATIVE) 11/24/16 06:00 C. difficile Ag & Toxin Positive antigen (NEGATIVE) 11/24/16 06:00 Blood Type O NEGATIVE 11/12/16 23:37 Antibody Screen Negative 11/12/16 23:37 - Hospital Course Hospital Course: On admission: CC: "unable to walk and leg pain" 71 year old liberian-speaking male with PMH of Bladder Ca with metastatic disease , s/p nephrectomy, s/p urostomy, presents to [facility] ED with complaint of inability to walk and bilateral lower extremity pain. Patient states that these has been going on since the Novemeber of last year. He states that it has gotten progressively worse over the last month. Patient reports associated anorexia, dehydration, and decreased oral intake as well for about 1 month. Patient was diagnosed with Bladder Ca last year. He had a urostomy done by Dr. Brielle Richmond. In 02/2016, patient had CT chest/abd/pelvis which suggested metastatic disease. A PET scan was don in 04/2016 which revealed enlarged lymph nodes in lower abdomen left of aortic bifurcation demonstrates increased FG uptake and multiple osseous metastasis including T7, L2, pelvic bones bilaterally, and bilateral femurs. About 2 months ago, patient saw an Oncologist at [facility]. As per family, the oncologist said that they was not need for chemotherapy or radiation due to advanced disease. Patient rates the bilateral leg pain as 10/10 in severity, usually. Currently, it is a 6/10 because he received Tramadol in ED. He describes the pain as constant and tearing located in bilateral thighs radiating down the leg to toe. He also has associated numbness/tingling. Lifting/moving his legs and certain postions make his pain worse while laying supine alleviates it a little. He has taken Tramadol , Tylenol, and Oxycodone at home previously which all seemed to provide some relief. Patient is only able to ambulate with full assistance. He has been using a bedside commode at home. Admits to chills, dizziness/lightheadedness, weakness, NINO, cough, nausea and 1 episode of nonbloody nonbilious vomiting. Denies fevers, vertigo, syncope, cp, palpitations, hematemesis, abd pain, diarrhea, constipation, melena, hematochezia, incontinence. PMD: Denies PMH: Bladder Ca with metastatic disease, s/p nephrectomy, s/p urostomy Meds: MVM, Tramadol, Tylenol, and Oxycodone Allergy: NKDA PSH: left nephrectomy, urostomy Hosp: none recently FH: Denies Social: quit smoking 41 years ago - smoked 1 pack/day for 20 years, denies ETOH/ illicit drug use, ambulate with full assistance, needs help with ADLs, lives with family During hospital course: Bilateral Lower extremity and back Pain likely secondary to metastatic disease Patient continues to be emotional regarding his condition preventing him from being "functional" but understands more clearly status and seems agreeable to comfort care per discussion. Pain currently controlled with following: Morphine 1 mg IVP PRN for severe pain Continue Tramadol 50 mg po TID and Gabapentin 300 mg po TID Regular diet Normal Saline IV @100cc Zofran 4mg IVP Q6h PRN for nausea Venous dopplers negative Pain management on consult PT/OT Chest/Abd/Pelvis CT with po contrast (11/12/16): Stable appearing lobular pleural densities of both lung bases. Small nodules right lower lung base unchanged. Suspect new metastatic lesion within the right lobe liver. Hepatomegaly. Small cyst caudate lobe felt to be present. Splenomegaly. Sclerotic metastatic deposits within the pelvis sacrum of both hips, L2 segment and T7 segments. Status post cystectomy and prostatectomy with a right-sided ileal conduit and ileostomy right lower quadrant of the abdomen. 04/2016 PET Scan: revealed enlarged lymph nodes in lower abdomen left of aortic bifurcation demonstrates increased FG uptake and multiple osseous metastasis including T7, L2, pelvic bones bilaterally, and bilateral femurs (see full report) 02/2016 CT chest/abd/pelvis: No evidence of thoracic metastasis. Stable pleural plaques bilaterally. Several new mildly enlarged retroperitoneal lymph nodes are noted. Status post left nephrectomy and cystectomy with formation of ileal conduit (see full report) Poor Appetite Megace 40 mg po daily Boosts TID Abdominal Pain Later present secondary to c.diff infection Initially secondary to obstruction NG tube discontinued. Obstruction resolved. Abdomen X-Ray Flat plate: Dilated small and large bowel loops - distal colonic obstruction versus ileus. Follow-up recommended no upright views available to assess for any subdiaphragmatic free air Patient refused NG tube placement overnight but now agreeable. Patient currently NPO. General surgery, Dr. Arita, consulted. Help appreciated. Lactulose given. Pt had BM today. Nursing instructed to give chamomile tea enema if constipation persists Abdominal flat plate ordered Diet advanced as per surgery, pt on clear liquids C. diff Positive Pt still complaining of diarrhea Vancocin 125 mg po QID Metronidazole 500 mg po q8h Symptomatic Anemia Improved Continue to monitor H&H and plan to transfuse if hemoglobin continues to decrease Type and Cross Transfused pRBCs Heme/Onc consulted, Dr. 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 Billy Del Toro, help appreciated. Patient emotional regarding thought of chemotherapy. Urology consult: Dr. Richmond on board, help appreciated. Palliative Care Consult, Nellie Griffith, help appreciated. Code status DNR/ DNI. Patient and family aware of diagnosis and agree goal is for comfort care. SonBob is surrogate decision maker. Pyuria Afebrile Urine Culture (11/23/16): VRE+ Discussed with Dr. Solomon need to start patient on antibiotics. Per, Dr. Solomon, as patient has urostomy and bladder cancer, he is susceptible to having antibiotic resistant urinary infections. Urine infection is not causing patient discomfort and according to POLST patient requesting treatment with antibiotics if symptoms from infection are preventing his comfort care. Repeat urine culture sent by Dr. Solomon. urinalysis: color yellow, clarity clear, protein 4, leuk esterase 2+, WBC 20, Bacteria OccH ID, Dr. Solomon, consulted. Help appreciated. Urine Culture (11/16/16): Enterococcus Faecalis Urine Culture (11/13/16): Klebsiella pneumoniae Discontinue Rocephin IV (started on 11/14/16) as patient is still spiking fever. Start Primaxin 500 mg IVPB q6h (11/16/16). Florastor 250mg PO BID Unstable Gait Physical therapist working with patient. Notes bed mobility, ADLs, transfers limited by constant pain. Gait continues to be impaired. Hemorrhoids Improved Anusol cream for symptomatic relief Prophylactic Measures Protonix 40 mg IVP daily Zofran 4 mg IVP Q6H PRN Tylenol 650 mg PO Q6H PRN Vanilla Boost TID for dietary supplement PT/OT Salon/Spa Manager referral Dispo Case Management consult for home hospice Discharge Instructions: Patient accepted to home hospice. In addition to management per hospice, patient to take the following antibiotic as prescribed for purpose of symptomatic relief: Vancocin 250 mg by mouth four times daily for 13 days. - Date & Time of H&P Date of H&P: 11/12/16 Time of H&P: 20:27 Discharge Exam - Head Exam Head Exam: ATRAUMATIC, NORMAL INSPECTION, NORMOCEPHALIC - Eye Exam Eye Exam: EOMI, Normal appearance, PERRL - ENT Exam ENT Exam: Mucous Membranes Moist - Respiratory Exam Respiratory Exam: NORMAL BREATHING PATTERN, UNREMARKABLE - Cardiovascular Exam Cardiovascular Exam: REGULAR RHYTHM, +S1, +S2. absent: Tachycardia - GI/Abdominal Exam GI & Abdominal Exam: Normal Bowel Sounds, Soft, Unremarkable. absent: Distended , Firm Additional comments: urostomy in place - Extremities Exam Extremities exam: normal capillary refill, tenderness, pedal pulses present - Back Exam Back exam: absent: rash noted, tenderness - Neurological Exam Neurological exam: Alert, CN II-XII Intact, Oriented x3 - Psychiatric Exam Psychiatric exam: Normal Affect, Normal Mood - Skin Skin Exam: Intact, Normal Color Discharge Plan - Discharge Medications Prescriptions: Ibuprofen [Motrin] 600 mg PO TID #15 tab traMADol/Acetaminophen [Ultracet 37.5/325 mg] 1 tab PO TID PRN #20 tab PRN Reason: pain Vancomycin [Vancocin (ORAL OR RECTAL USE)] 250 mg PO QID #52 - Follow Up Plan Condition: GUARDED Disposition: HOSPICE - HOME Instructions: Ibuprofen (By mouth), Vancomycin (By mouth), Tramadol/ Acetaminophen (By mouth), Bone Metastasis (ED) Additional Instructions: Patient accepted to home hospice. In addition to management per hospice, patient to take the following antibiotic as prescribed for purpose of symptomatic relief: Vancocin 250 mg by mouth four times daily for 13 days. Referrals: [facility] [Outside] [facility] [Outside] Acosta Richmond MD [Staff Provider] -
== END 2016-11-27 16:00 | disposition hospice, home (50) | DRG 948 ==
LOC: C.ER 16:55 → C.9E 19:27 → C.5T 20:38 → OBSVTOIN 11-13 16:23 → C.3T 11-14 20:18
PROVIDERS: ADMIT Hospitalist; ATTEND Hospitalist
PROC: 30233N1 Transfusion of Nonautologous Red Blood Cells into Peripheral Vein, Percutaneous Approach (ICD-10-PCS; principal; 2016-11-13)
DX: G89.3 Neoplasm related pain (acute) (chronic) (principal); K56.60 Unspecified intestinal obstruction; N17.9 Acute kidney failure, unspecified; A04.7 Enterocolitis due to Clostridium difficile; C79.51 Secondary malignant neoplasm of bone; E11.22 Type 2 diabetes mellitus with diabetic chronic kidney disease; N39.0 Urinary tract infection, site not specified; B95.2 Enterococcus as the cause of diseases classified elsewhere; J44.1 Chronic obstructive pulmonary disease with (acute) exacerbation; C67.9 Malignant neoplasm of bladder, unspecified; Z93.6 Other artificial openings of urinary tract status; D63.0 Anemia in neoplastic disease; D64.9 Anemia, unspecified; Z16.21 Resistance to vancomycin; R26.2 Difficulty in walking, not elsewhere classified; M79.605 Pain in left leg; M79.604 Pain in right leg; Z87.891 Personal history of nicotine dependence; Z51.5 Encounter for palliative care; Z66 Do not resuscitate; Z85.51 Personal history of malignant neoplasm of bladder; E86.0 Dehydration; F41.9 Anxiety disorder, unspecified; I12.9 Hypertensive chronic kidney disease with stage 1 through stage 4 chronic kidney disease, or unspecified chronic kidney disease; K64.8 Other hemorrhoids; L29.9 Pruritus, unspecified; L40.9 Psoriasis, unspecified; N18.9 Chronic kidney disease, unspecified; Z79.4 Long term (current) use of insulin; Z79.84 Long term (current) use of oral hypoglycemic drugs; Z86.711 Personal history of pulmonary embolism